=== PATIENT | male | born 1945 | race Caucasian/White ===

== ENCOUNTER 2017-03-14 08:28 | Inpatient (IN) ==
--- NOTE | 2017-03-14 08:48 | Emergency Department Note ---
Disposition Clinical Impression: NSTEMI (non-ST elevated myocardial infarction) Disposition: Admitted As Inpatient Condition: Fair General Adult HPI - General Chief complaint: ED Chest Pain Stated complaint: CHEST PAIN Time Seen by Provider: 03/14/17 08:31 Source: patient Limitations: no limitations Nursing Notes Reviewed: Yes Vital Signs Reviewed: Yes - History of Present Illness HPI Narrative: Chief complaint is chest pain. History of chief complaint 71-year-old gentleman he felt fine yesterday. About 3 to 4:00 this morning he was awakened with pain in the left side of his chest going into his left arm. He said it is resolve somewhat now but not completely. He denied any headache no neck pain or jaw pain no back pain no dyspnea with this. Said a history of cardiovascular disease was angioplasty in the past it has been quite a while and his said he has not followed up with cardiology in years. He also has a history of diabetes hypertension he is on a statin but he does not know if he has high cholesterol or not. He continues to smoke. He denied any diaphoresis or dyspnea with this episode. Nurse's notes reviewed, past medical history reviewed, medications reviewed, allergies reviewed, family social history reviewed. Pain Scale: 8 - Related Data Home Medications Medication Instructions Recorded Confirmed Carbidopa/Levodopa 1 tab PO TID 03/14/17 03/14/17 [Carbidopa-Levodopa 25-250 Tab] Fluticasone/Salmeterol [Advair 1 puff IH BID 03/14/17 03/14/17 500-50 Diskus] Glimepiride [Amaryl] 1 mg PO QAM 03/14/17 03/14/17 Lisinopril [Zestril] 40 mg PO DAILY 03/14/17 03/14/17 Metformin [Glucophage] 500 mg PO DAILY 03/14/17 03/14/17 Metoprolol Succinate 100 mg PO DAILY 03/14/17 03/14/17 Pravastatin Sodium [Pravachol] 40 mg PO DAILY 03/14/17 03/14/17 Tamsulosin [Flomax] 0.4 mg PO DAILY 03/14/17 03/14/17 Vit A/Vit C/Vit E/Zinc/Copper 2 tab PO DAILY 03/14/17 03/14/17 [Preservision Areds Tablet] Allergies Allergy/AdvReac Type Severity Reaction Status Date / Time No Known Allergies Allergy Verified 03/14/17 08:38 Review of Systems: Review of systems are positive for chest pain with left arm pain. Denies diaphoresis, nausea and vomiting, abdominal pain or dyspnea. All systems ED: reviewed and negative except as stated. Past Medical History - Past Medical History Medical history: Reports: COPD, coronary artery disease, diabetes, hyperlipidemia, hypertension, myocardial infarction Psychiatric history: Reports: no psych history - Social History Smoking Status: Current every day smoker Smokeless Tobacco Status: No Alcohol use: Reports: none Drug use: Reports: none Physical Exam Temperature is 98.7, pulse is 83 and regular, respirations 18 nonlabored, BP 149 /97, pulse ox on room air is 95%, weighs 106.5 kg, alert cooperative no acute distress. HEENT is normocephalic PERRL no scleral icterus X rectal muscles are intact, TMs and nares are negative airways midline no drooling or stridor no carotid bruits Cardiovascular regular rate and rhythm without rubs or JVD Lungs are clear to auscultation bilaterally with good aeration Abdomen soft nonsurgical good bowel sounds no masses dermatologic skin is warm and dry there is no signs or rash petechiae or jaundice. Does have changes associated with age. Extremities are present 4 with good distal pulses Refill is brisk is no pitting edema and no calf tenderness Neurologic cranial nerves are intact. He does have significant bilateral vision loss which she is known to have. But he is not certain why. He moves all extremities has good upper and lower muscle strength, no clonus, no fasciculations, no ataxia - General Limitations: no limitations General appearance: alert Course Vital Signs Temperature 98.7 F 03/14/17 08:30 Pulse Rate 83 03/14/17 08:30 Respiratory Rate 18 03/14/17 08:30 Blood Pressure 149/97 03/14/17 08:30 O2 Sat by Pulse Oximetry 95 03/14/17 08:30 Temperature 98.7 F 03/14/17 08:30 Pulse Rate 80 03/14/17 10:22 Respiratory Rate 18 03/14/17 10:39 Blood Pressure 113/82 03/14/17 10:39 O2 Sat by Pulse Oximetry 93 03/14/17 10:22 Oxygen Delivery Oxygen Delivery Room Air Medical Decision Making - MDM Narrative Medical decision making narrative: Cardiac workup is started, nitroglycerin trial, he is oriented had aspirin today. So we will not repeat that. EKG troponin chest x-ray and reassess. He will most likely need admission. He has family are in agreement with this plan. EKG performed at 0835 hours shows a sinus rhythm, rates 85, QRS is 105, QTc is 370, he does have markedly left axis deviation and ST segment depression in the in the lateral leads. Compared with an EKG that he had done in 2012 shows no acute changes except for rate 0920 hrs.: Patient one nitroglycerin brought his pain from an 8 down to 4 he states he did not want a second nitroglycerin. Hemoglobin of fluids weight on his labs to come back and then discuss admission. He is in agreement this plan. Chest X-Ray 03/14/17 08:31 IMPRESSION: 1. COPD. 2. Diffuse bilateral basilar predominant interstitial reticulonodular changes which could represent pulmonary edema versus bronchitis/bronchiolitis (possible hypersensitivity pneumonitis) versus interstitial pneumonitis. 3. No lobar pneumonia. D/ / Rohit Mitchell MD / Rohit Mitchell MD Interpreting Provider: Rohit Mitchell MD 1016 hrs.: Repeat EKG done at 1012 hrs. shows a sinus rhythm did have a PVC, has a QRS of 102 mL at 384 left axis deviation still has the same lateral changes he has had on his previous EKG as well as from 2012. His troponin is positive he denies any chest pain at this time. He said aspirin today and the nitroglycerin were bringing him into the hospital he is in agreement with this plan. 1035 hrs.: I spoke with cardiology, Dr. Sigala, he asked that we go ahead and start the patient on heparin low-dose ACS protocol is initiated. Dr. Carvajal has come down to the department to see the patient and hospital service. Patient denies any chest pain at this time. We did discuss the abnormalities on his EKG and his positive troponin. Patient's agreeing to admission to the hospital. His critical care time exclusive any separately billable procedures is 40 minutes. 1100 hrs.: Family Psychologist seen the patient in the emergency department. They have talked with Dr. Moran who is on for interventional mildew heart catheter on him today. Patient's in agreement with that plan. - Lab Data Result diagrams: 03/14/17 09:14 03/14/17 09:14 Lab Results 03/14/17 03/14/17 03/14/17 Range/Units 09:14 09:14 09:14 WBC 11.0 (4.3-11.1) K/mcL RBC 4.99 (4.19-5.50) M/mcL Hgb 16.6 (12.9-16.9) g/dL Hct 47.3 (37.5-50.1) % MCV 94.8 (83.0-100.0) fL MCH 33.3 (28.0-33.3) pg MCHC 35.1 (31.6-35.5) g/dL RDW 13.3 (11.5-14.5) % Plt Count 125 L (140-400) K/mcL MPV 11.2 (9.4-12.4) fL Immature Gran % 1.4 (0-4) % Seg Neutrophils % 69.6 % Lymphocytes % 19.7 % Monocytes % 7.3 % Eosinophils % 1.2 % Basophils % 0.8 % Neutrophils # 7.7 (1.6-8.9) K/mcL Lymphocytes # 2.2 (0.6-4.6) K/mcL Monocytes # 0.8 (0.0-1.3) K/mcL Eosinophils # 0.1 (0.0-0.6) K/mcL Basophils # 0.1 (0.0-0.2) K/mcL Sodium 136 (136-145) mEq/L Potassium 4.5 (3.5-4.5) mEq/L Chloride 106 (98-109) mEq/L Carbon Dioxide 19 (19-29) mEq/L BUN 11 (8-26) mg/dL Creatinine 0.83 (0.72-1.25) mg/dL Est GFR ( Amer) > 60 (> 60) Est GFR (Non-Af Amer) > 60 (> 60) BUN/Creatinine Ratio 13 (6-26) Glucose 167 H (70-99) mg/dL Calculated Osmolality 285 (280-300) Calcium 9.7 (8.6-10.8) mg/dL Troponin I 0.95 H* (0-0.03) ng/mL B-Natriuretic Peptide (0-100) pg/mL 03/14/17 Range/Units 09:14 WBC (4.3-11.1) K/mcL RBC (4.19-5.50) M/mcL Hgb (12.9-16.9) g/dL Hct (37.5-50.1) % MCV (83.0-100.0) fL MCH (28.0-33.3) pg MCHC (31.6-35.5) g/dL RDW (11.5-14.5) % Plt Count (140-400) K/mcL MPV (9.4-12.4) fL Immature Gran % (0-4) % Seg Neutrophils % % Lymphocytes % % Monocytes % % Eosinophils % % Basophils % % Neutrophils # (1.6-8.9) K/mcL Lymphocytes # (0.6-4.6) K/mcL Monocytes # (0.0-1.3) K/mcL Eosinophils # (0.0-0.6) K/mcL Basophils # (0.0-0.2) K/mcL Sodium (136-145) mEq/L Potassium (3.5-4.5) mEq/L Chloride (98-109) mEq/L Carbon Dioxide (19-29) mEq/L BUN (8-26) mg/dL Creatinine (0.72-1.25) mg/dL Est GFR ( Amer) (> 60) Est GFR (Non-Af Amer) (> 60) BUN/Creatinine Ratio (6-26) Glucose (70-99) mg/dL Calculated Osmolality (280-300) Calcium (8.6-10.8) mg/dL Troponin I (0-0.03) ng/mL B-Natriuretic Peptide 159 H (0-100) pg/mL
[2017-03-14] MEDS: Nitroglycerin 0.4 MG TAB.SUBL SL PRN ×2 (09:04→13:50)
[2017-03-14 09:22] LABS: Basophils # 0.1 K/mcL (0.0-0.2); Basophils % 0.8 %; Eosinophils # 0.1 K/mcL (0.0-0.6); Eosinophils % 1.2 %; Hematocrit 47.3 % (37.5-50.1); Hemoglobin 16.6 g/dL (12.9-16.9); Immature Granulocytes % 1.4 % (0-4); Lymphocytes # 2.2 K/mcL (0.6-4.6); Lymphocytes % 19.7 %; Mean Corpuscular HGB Conc 35.1 g/dL (31.6-35.5); Mean Corpuscular Hemoglobin 33.3 pg (28.0-33.3); Mean Corpuscular Volume 94.8 fL (83.0-100.0); Mean Platelet Volume 11.2 fL (9.4-12.4); Monocytes # 0.8 K/mcL (0.0-1.3); Monocytes % 7.3 %; Neutrophils # 7.7 K/mcL (1.6-8.9); Platelet Count 125 K/mcL (140-400); Red Blood Count 4.99 M/mcL (4.19-5.50); Red Cell Distribution Width 13.3 % (11.5-14.5); Segmented Neutrophils % 69.6 %
[2017-03-14 09:35] LABS: BUN/Creatinine Ratio 13 (6-26); Blood Urea Nitrogen 11 mg/dL (8-26); Calcium 9.7 mg/dL (8.6-10.8); Carbon Dioxide 19 mEq/L (19-29); Chloride 106 mEq/L (98-109); Glucose 167 mg/dL (70-99); Osmolality,Calculated 285 (280-300); Potassium 4.5 mEq/L (3.5-4.5); Sodium 136 mEq/L (136-145); eGFR For African Americans > 60 (> 60); eGFR For Non-African Americans > 60 (> 60)
[2017-03-14] MEDS ORDERED: *HR* Heparin 5,000 UNIT/ML VIAL IVP ONE (10:34)
[2017-03-14] MEDS ORDERED: Ipratropium/Albuterol Neb 3 ML IH PRN (11:24)
--- NOTE | 2017-03-14 11:28 | Internal Med History&Physical ---
Date of Encounter: 03/14/17 Time of Encounter: 11:24 Assessment and Plan (1) NSTEMI (non-ST elevated myocardial infarction) Current visit: Yes Status: Acute Patient has NSTEMI type one of coronary artery disease. He will be started on full anterior ischemic medications including aspirin, beta cecilia, full dose heparin drip. He was off chest pain now. He is having downsloping ST segment depression 2 mm. Cardiology service deciding on taking patient to the Manager [facility] today. Echocardiogram will be checked. His heart rate is 80. Continue 100 mg metoprolol, target heart rate 60. Patient is full code (2) COPD (chronic obstructive pulmonary disease) Current visit: Yes Status: Acute Patient is having cough with production, however he denies any increase in the amount of sputum or change in its color. No increased shortness of breath. I therefore hold off antibiotics Qualifiers: Qualified Code(s): J44.9 - Chronic obstructive pulmonary disease, unspecified Internal Medicine - H&P: HPI Chief complaint: chest pain History of present illness: Mr. Otto is a 71 year old male with past medical history of diabetes mellitus type II, hypertension, COPD not on home oxygen, macular degeneration, presents to the emergency room today with the main complaining of chest pain. Patient was awakened from sleep at 3 AM with retrosternal chest pain which he describes as heaviness radiating to the left arm. This was associated with profuse sweating. Patient noted that pain would improve when he sits up and worsens when he lays flat. Patient has been constant till he arrived to the emergency room proximately 9 AM. He had received 2 tablets of sublingual nitroglycerin in the emergency room with a resolution of this pain. He had dynamic EKG changes in the form of downsloping ST segment depression in lateral precordial leads and initial troponin levels was 0.95. Patient was off pain during my interview. He had a similar episode but shorter duration 1 week ago. Patient is having cough with production, however he denies any increase in the amount of sputum or change in its color. No increased shortness of breath. No fever Past Med Surg Social Fam HX - Past Medical History Medical history: COPD, coronary artery disease, diabetes, hyperlipidemia, hypertension, myocardial infarction Psychiatric history: no psych history - Social History Smoking Status: Current every day smoker Smokeless Tobacco Status: No Alcohol use: none Drug use: none Internal Medicine - H&P: Meds Carbidopa/Levodopa [Carbidopa-Levodopa 25-250 Tab] 1 tab PO TID 03/14/17 [ History] Fluticasone/Salmeterol [Advair 500-50 Diskus] 1 puff IH BID 03/14/17 [History] Glimepiride [Amaryl] 1 mg PO QAM 03/14/17 [History] Lisinopril [Zestril] 40 mg PO DAILY 03/14/17 [History] Metformin [Glucophage] 500 mg PO DAILY 03/14/17 [History] Metoprolol Succinate 100 mg PO DAILY 03/14/17 [History] Pravastatin Sodium [Pravachol] 40 mg PO DAILY 03/14/17 [History] Tamsulosin [Flomax] 0.4 mg PO DAILY 03/14/17 [History] Vit A/Vit C/Vit E/Zinc/Copper [Preservision Areds Tablet] 2 tab PO DAILY [History] Allergies No Known Allergies Allergy (Verified 03/14/17 08:38) All Systems PM: A 10-system review of systems was performed and is negative for pertinent findings except as documented above in the HPI. Review of systems: 10 point ROS is negative except for HPI - Constitutional Vitals: Temp Pulse Resp BP Pulse Ox 98.7 F 80 18 113/82 93 03/14/17 08:30 03/14/17 10:22 03/14/17 10:39 03/14/17 10:39 03/14/17 10:22 Exam: Gen.: patient is alert and oriented times 3 knocks in distress. Cardiac: normal S1 S2 no additional sounds remembers. Chest: diminished infantry scattered expiratory wheeze. Abdomen: soft nontender nondistended lower extremity: No swelling Neuro: No focal deficits Internal Med - H&P Results - Labs CBC & Chem 7: 03/14/17 09:14 03/14/17 09:14
--- NOTE | 2017-03-14 11:33 | Cardiology Consult Note ---
Date of Encounter: 03/14/17 Time of Encounter: 11:29 Assessment and Plan Discussion w patient/family: NSTEMI - With mild ongoing sxs. Dw Interventional CArdiology Risks benefits rationale and alternatives to Angio were discussed - Patient is agreeable. Keep NPO now. Usual AR type care. Cath later today - Dr. Moran - further work up based on results of cath. The assessment and plan as outlined above was discussed with the patient and/or family members who expressed understanding and agreement. All questions were answered. Thank you for involving us in the care of your patient. Please call with any questions. History of Present Illness Consult date: 03/14/17 Consult reason: NSTEMI Chief complaint: chest pain History of present illness: Mr. Otto is a 71 year old male with known CAD, details unknown, lost to CV follow up for several years, presents with acute onset chest pain starting early this morning. Reports that this started ~ 3 AM, feels similar to his previous anginal chest pain, and persisted until he came to the ER. After arrival, NTG finally improved the pain, however it is still there - slightly. Denies any other sxs. Denies any other episodes of chest pain. Work up in the ER is notable for an Abnormal EKG with ST depression in the lateral leads - unchanged after pain was markedly improved. Similar but worse than previous EKGs. Trop was also elevated at 0.95 Past Med Surg Social Fam HX - Past Medical History Medical history: COPD, coronary artery disease, diabetes, hyperlipidemia, hypertension, myocardial infarction Psychiatric history: no psych history - Social History Smoking Status: Current every day smoker Smokeless Tobacco Status: No Alcohol use: none Drug use: none Medications and Allergies Carbidopa/Levodopa [Carbidopa-Levodopa 25-250 Tab] 1 tab PO TID 03/14/17 [ History] Fluticasone/Salmeterol [Advair 500-50 Diskus] 1 puff IH BID 03/14/17 [History] Glimepiride [Amaryl] 1 mg PO QAM 03/14/17 [History] Lisinopril [Zestril] 40 mg PO DAILY 03/14/17 [History] Metformin [Glucophage] 500 mg PO DAILY 03/14/17 [History] Metoprolol Succinate 100 mg PO DAILY 03/14/17 [History] Pravastatin Sodium [Pravachol] 40 mg PO DAILY 03/14/17 [History] Tamsulosin [Flomax] 0.4 mg PO DAILY 03/14/17 [History] Vit A/Vit C/Vit E/Zinc/Copper [Preservision Areds Tablet] 2 tab PO DAILY [History] Allergies No Known Allergies Allergy (Verified 03/14/17 08:38) All Systems Review: A 10-system review of systems was performed and is negative for pertinent findings except as documented above in the HPI. - Cardiovascular Cardiovascular: chest pain at rest, chest pain with exertion, dyspnea at rest Physical Examination Vital Signs, Last 4 Hours Resp BP 03/14/17 10:39 18 113/82 General: Conversant, No Apparent Distress HEENT: Atraumatic, Mucus Membranes Moist Neck: No JVD, Normal carotid pulses Cardiac: Reg Rate and Rhythm, Normal S1 and S2 Lungs: Normal Breath Sounds, Other (fair air movement) Neuro: Alert and responsive, No focal deficits noted Abdomen: Soft, Non-Tender Skin: No rashes noted on visualized skin Musculoskeletal: No Chest Wall Tenderness Extremities: No Clubbing, No Edema Results 03/14/17 09:14 03/14/17 09:14 Trop 0.95 BNP < 200 - Imaging and Cardiology Chest Xray: report reviewed (COPD) - EKG Interpretation EKG results cardiology: personally reviewed, sinus rhythm, other (LAteral ST depression) Consult Discharge Plan - Plan Referrals: Chidi Gray MD [Primary Care Provider] -
[2017-03-14] MEDS ORDERED: *HR* Midazolam HCl 2 MG/2 ML VIAL ONE (11:42)
[2017-03-14] MEDS ORDERED: Nitroglycerin 1,000 MCG/10 ML VIAL IV ONE (11:43)
[2017-03-14] MEDS ORDERED: 0.9 % Sodium Chloride 1,000 ML ONE (11:43)
[2017-03-14] MEDS ORDERED: *HR* Heparin 10,000 UNIT/10 ML VIAL ONE (11:43)
[2017-03-14] MEDS ORDERED: *HR* FentaNYL (PF) 100 MCG/2 ML VIAL ONE (11:43)
[2017-03-14] MEDS ORDERED: Verapamil 5 MG/2 ML VIAL ONE (11:43)
[2017-03-14] MEDS ORDERED: Heparin 1,000 UNITS/500 mL NS 500 ML ONE (11:43)
[2017-03-14 11:48] LABS: Prothrombin Time 10.7 Seconds (9.4-12.1)
[2017-03-14 11:51] LABS: Activated Partial Thrombo Time 26.6 Seconds (26.0-36.0)
--- NOTE | 2017-03-14 12:18 | Pre-Sedation Evaluation ---
Pre-sedation evaluation - Pre-sedation checklist Date of procedure: 03/14/17 Procedure: [facility] Recent Vitals: Last Vital Signs Temp 98.7 F 03/14/17 08:30 Pulse 80 03/14/17 10:22 Resp 18 03/14/17 10:39 BP 113/82 03/14/17 10:39 Pulse Ox 93 03/14/17 10:22 H&P (including ROS) documented in medical record: Yes Previous reaction to sedatives/anesthetics: No Dietary Status: No solid food in preceding 4 hrs and no liquid in preceding 2 hrs Airway Assessment: Patient can open mouth completely, TMJ function normal Dentition: No loose teeth or bridges Possible difficult airway: Yes If Yes;: Enlarged neck circumference, short neck ASA Classification *see protocol: CLASS II-Mild systemic disease, E-EMERGENCY- Add to any of the above to indicate emergent Plan of Care: Pt appropriate candidate for procedure/moderate/conscious sedation , Risks/benefits of procedure/sedation discussed w/ patient/family, If not NPO; Risk of intake outweiged by necessity to perform procedure
--- NOTE | 2017-03-14 12:58 | Invasive Diagnostic Lab Proc ---
Name: Jose R Otto Date of Study: 03/14/2017 Date: 1945 Ht: 72.0in Medical Record#: [id number] Age: 71 Wt: 284.62lb Gender: Male BSA: 2.48 Order #: [id number] BMI: 38.59 Physicians Procedure Physician: Rick Moran MD, [facility] Referring MD: Referring MD: Staff Name Position Time In Naila Malone RT (R) Monitor 12:13 PM Elier Melgozai RT Scrub 12:13 PM Hemalatha Avila RN Paste Thinner 12:13 PM Indications Indication Non-Stemi Procedures Performed Procedure L HRT ARTERY/VENTRICLE ANGIO Pre-Procedure Checklist Informed consent is complete signed and on chart. H\\T\\P is on chart. ID band is on and ID verified with patient. Patient NPO for procedure The procedure was described for the patient and questions were answered. Blood Pressure: 124/87 ECG is on chart. Rhythm: NSR Plan of Care Patient will tolerate the procedure without complications. Adequate level of comfort will be maintained. Hemodynamics will remain stable Patient will recover from procedure without complications. Respiratory function will be maintained. Cardiac rhythm will remain stable. Patient temperature will be maintained. Patient and/or family have verbalized understanding of the procedure. Patient Education Chief Complaint/Reason for Test: Cardiac Cath Developmental Category: Geriatric (65+ years) Developmentally Appropriate for Age: Yes Learning Barriers: None Education Needs: Procedure Education Method: Verbal Information Taught: Cardiac Cath Educational Evaluation: Able to repeat information Intravenous Access Time IV Size Location DC'd Fluid/Drip Rate Units RN 12:15 PM Started with 20g 1 1/4" Rt Hand 0.9NaCl 25 ml/hr Allergies NO HOME MEDICATIONS No Known Allergies / Vital Signs Time BP (mmHg) HR (bpm) O2 Sat. RR (bpm) LOC 124 / 87 78 94 % 16 5 = Fully awake and oriented or at pre-proc level 12:15 PM / % 4 = Oriented but drowsy 12:15 PM / % 4 = Oriented but drowsy 12:10 PM 142 / 86 77 97 % 11 12:15 PM 124 / 87 75 97 % 17 12:19 PM 125 / 83 77 92 % 19 12:24 PM 128 / 80 78 95 % 18 12:29 PM 111 / 75 85 94 % 19 12:34 PM 120 / 75 84 92 % 17 12:39 PM 119 / 75 81 % 12 12:44 PM 126 / 82 74 88 % 14 Procedural Medications Time Medication Dose Units Method Given By 12:14 PM Oxygen 2 L/min nasal cannula Hemalatha Avila RN 12:14 PM Versed 2 mg Intravenous Hemalatha Avila RN 12:14 PM Fentanyl 50 mcg Intravenous Hemalatha Avila RN 12:23 PM Lidocaine 2% 0.5 ml Subcutaneous Rick Moran MD, FACC 12:25 PM Heparin 4000 units Nitroglycerin 200 mcg Verapamil 2.5 mg Intraarterial Rick Moran MD, FAC ASA Classification: CLASS II- Mild systemic disease (i.e. well-controlled diabetes, hypertension, asthma, cigarette smoking) Salas Score Preprocedure Postprocedure Activity 2- Moves 4 extremities sustained head lift Activity 2- Moves 4 extremities sustained head lift Circulation 2- SBP +/= 20 points of pre-anesthetic level Circulation 2- SBP +/= 20 points of pre-anesthetic level Consciousness 2- Awake and alert oriented x 3 Consciousness 2- Awake and alert oriented x 3 O2 Saturation 2- Able to maintain O2 satruation of 92% on room air O2 Saturation 2- Able to maintain O2 satruation of 92% on room air Respiratory 2- Able to deep breathe and cough well Respiratory 2- Able to deep breathe and cough well Total Score 10 Total Score 10 Contrast Agent: Isovue Diagnostic Contrast: 57 ml Total Contrast: 57 ml Fluoro Dose: 254 mGy Procedure Log Time Note Enter By 12:09 PM Vitals capture started with the following parameters, Patient=Adult, Interval=5 min, Initial Xkxvzmke=655 mmHg, Deflation Rate=5 mmHg, Cuff placed on Left Arm 12:10 PM HR=77 bpm, UBGT=257/86 mmhg, SpO2=97.0 %, Resp=11 B/min 12:13 PM CathStat 12:13 PM Case Start 12:13 PM Recorded ECG: HR=91 Condition=Condition 1 12:13 PM Pt arrived to labor standards director 2 at 12:13 [email or web address] 12:13 PM Naila Malone RT (R) Position: Monitor Time in: 12:13 [email or web address] 12:13 PM Hiwot Melgoza RT Position: Scrub Time in: 12:13 [email or web address] 12:14 PM Hemalatha Avila RN Position: Paste Thinner Time in: 12:13 [email or web address] 12:14 PM Patient charges- Angio tray pack, Navilyst 3mm J, Pulse Oximetry and ACIST tubing and transducer [email or web address] 12:14 PM Case Delayed No [email or web address] 12:14 PM Hair removed from procedure site in holding area using clippers. Right wrist prepped with Chloraprep by Naila Malone RT (R), safety strap applied then patient was draped. Skin intact. [email or web address] 12:14 PM Hair removed from procedure site in holding area using clippers. Right groin prepped with Chloraprep by Naila Malone RT (R), safety strap applied then patient was draped. Skin intact. [email or web address] 12:14 PM Physician arrived 12:14 [email or web address] 12:14 PM ASA Class CLASS II- Mild systemic disease (i.e. well-controlled diabetes, hypertension, asthma, cigarette smoking) [email or web address] 12:14 PM Meet and greet completed [email or web address] 12:14 PM Sign in performed according to hospital policy. [email or web address] 12:14 PM Procedure start 12:14 [email or web address] 12:14 PM Time: 12:14 Oxygen on at 2 L/min per nasal cannula by Hemalatha Avila RN [email or web address] 12:14 PM Time: 12:14 Versed 2 mg Intravenous Given by Hemalatha Avila RN [email or web address] 12:14 PM Time: 12:14 Fentanyl 50 mcg Intravenous Given by Hemalatha Avila RN [email or web address] 12:15 PM HR=75 bpm, QQOW=407/87 mmhg, SpO2=97.0 %, Resp=17 B/min 12:15 PM Time: 12:15 Patient comfortable and pain free: Yes [email or web address] 12:15 PM Time: 12:15LOC: 4 = Oriented but drowsy [email or web address] 12:17 PM Pressure channel 1 zeroed. 12:19 PM HR=77 bpm, XGOI=627/83 mmhg, SpO2=92.0 %, Resp=19 B/min, Comment=NSR 12:23 PM Time out performed according to hospital policy [email or web address] 12:23 PM Time: 12:23 0.5 ml Lidocaine 2% to right radial Subcutaneous Given by Rick Moran MD, [facility] [email or web address] 12:24 PM Access obtained by percutaneous puncture. 6Fr 10cm Terumo Glidesheath sheath placed in right Radial artery. [id number] [email or web address] 12:24 PM HR=78 bpm, JJFE=347/80 mmhg, SpO2=95.0 %, Resp=18 B/min, Comment=NSR 12:25 PM Time: 12:25 Patient given 4,000 units Heparin, 200 mcg Nitroglycerin, and 2.5 mg Verapamil Intraarterial by Rick Moran MD, [facility] [email or web address] 12:25 PM 0.035 260cm Navilyst 3mmJ wire [id number] [email or web address] 12:26 PM 5Fr FR 4 catheter inserted over the wire DN [email or web address] 12:26 PM Catheter removed [email or web address] 12:26 PM 0.035 145cm VSI Newton-Torque wire [id number] [email or web address] 12:27 PM Wire removed [email or web address] 12:28 PM RCA angiography performed in multiple views. [email or web address] 12:28 PM Recorded Pressure: Ao, HR=84, Condition=Condition 1 (Aorta) Ao 92/73/83 12:29 PM HR=85 bpm, LWBR=731/75 mmhg, SpO2=94 %, Resp=19 B/min, Comment=NSR 12:30 PM Coronary Dominance: right [email or web address] 12:30 PM Time: 12:15LOC: 4 = Oriented but drowsy [email or web address] 12:30 PM Time: 12:15 Patient comfortable and pain free: Yes [email or web address] 12:30 PM Catheter removed [email or web address] 12:30 PM 5Fr FL 4 catheter inserted over the wire DN [email or web address] 12:31 PM Lesion found in Mid RCA. Pre Stenosis: 60 Pre STEFF Flow: 3: Complete and Brisk Flow/Perfusion [email or web address] 12:31 PM LCA angiography performed in multiple views. [email or web address] 12:31 PM Recorded Pressure: Ao, HR=84, Condition=Condition 1 (Aorta) Ao 94/71/83 12:31 PM Lesion found in Proximal LAD. Pre Stenosis: 99 Pre STEFF Flow: [email or web address] 12:32 PM Lesion found in Mid Circumflex. Pre Stenosis: 100 Pre STEFF Flow: [email or web address] 12:32 PM Recorded Pressure: Ao, HR=84, Condition=Condition 1 (Aorta) Ao 94/70/82 12:32 PM Catheter removed [email or web address] 12:33 PM 5Fr Pigtail catheter inserted over the wire DNC [email or web address] 12:33 PM Catheter selectively placed in left ventricle [email or web address] 12:33 PM Pressure channel 1 zero failed. 12:34 PM Pressure channel 1 zero failed. 12:34 PM Pressure channel 1 zeroed. 12:34 PM Recorded Pressure: LV, HR=85, Condition=Condition 1 (Left Ventricle) LV 123/8/13 12:34 PM HR=84 bpm, OOUU=490/75 mmhg, SpO2=92 %, Resp=17 B/min 12:34 PM Bolus angiogram of left Ventricle complete: 10 ml/sec for a total of 30 mls [email or web address] 12:35 PM Recorded Pressure: LV, Ao, HR=85, Condition=Condition 1 (Left Ventricle) LV 125/3/12, (Aorta) Ao 122/68/93 12:37 PM Catheter removed [email or web address] 12:39 PM Procedure completed at 12:39 [email or web address] 12:39 PM HR=81 bpm, PDVU=149/75 mmhg, Resp=12 B/min, Comment=NSR 12:40 PM Sign out completed: Radiation Dose 253.58 mGy Fluoro Time: 1.3 Isovue 370 - 200ml contrast 57 ml given by Rick Moran MD, [facility]. Complications: NoneCardiac Rehab Consult needed: NoConfirmed administered medications: Yes [email or web address] 12:40 PM Paged cardiothoracic surgeon. [email or web address] 12:41 PM Isovue 370 - 200ml,1 Bottle(s) used. [email or web address] 12:41 PM 10 ml air in Vasc Band. [email or web address] 12:41 PM Post ECG NSR [email or web address] 12:41 PM Post Blood Pressure 119/75 [email or web address] 12:43 PM 12:43 Post Pulses Rt Radial 2+ [email or web address] 12:43 PM Information taught Cardiac Cath and Vasc Band [email or web address] 12:43 PM Education needs Procedure, Plan of Care, and Disease Process [email or web address] 12:43 PM Learning barriers :None [email or web address] 12:43 PM Education Methods Verbal [email or web address] 12:43 PM Education evaluation Able to repeat information [email or web address] 12:43 PM Site status No bleeding/hematoma - Rt Wrist as reported by Hiwot Melgoza RT at 12:43 [email or web address] 12:43 PM Delay to floor No [email or web address] 12:43 PM Family placed in consult room. [email or web address] 12:43 PM Complications: None [email or web address] 12:44 PM Fluoro Time: 1.3 [email or web address] 12:44 PM Isovue 370 - 200ml contrast 57 ml given by Rick Moran MD, [facility]. [email or web address] 12:44 PM Radiation Dose 253.58 mGy [email or web address] 12:44 PM HR=74 bpm, KLCM=592/82 mmhg, SpO2=88.0 %, Resp=14 B/min, Comment=NSR 12:45 PM Time: 12:30 Patient comfortable and pain free: Yes [email or web address] 12:52 PM Report given to Rhys BOYER Pt taken to 2A Room #43. 12:51 [email or web address] 12:52 PM Patient out of room: 12:52 [email or web address] Complications Complication None None Hemodynamics Pressures Site Systolic/A Wave Diastolic/V Wave Mean AO 92 73 83 AO 94 71 83 AO 94 70 82 LV 123 8 13 LV 125 3 12 AO 122 68 93 Post Procedure Information Blood Pressure: 119/75 mmHg Rhythm: NSR Post procedural instructions were not given Surgery consult for CABG Closure Device Time Device Success/Fail 03/14/2017 12:40:00 PM Mechanical Compression yes Site Checks Time Location Status Staff Sheath In? Note 12:43 PM Rt Wrist No bleeding/hematoma Hiwot Melgoza RT Pulses Time Site Pre-Procedure Post-Procedure Note 03/14/2017 12:16:00 PM Bilateral radial 2+ 03/14/2017 12:16:00 PM Bilateral DP \\T\\ PT 1+ 12:43:00 PM Rt Radial 2+ Updated by Naila Malone, RT(R) on 03/14/2017 12:53:07 PM electronically signed on 03/14/2017 12:53:53 PM with status of Final
[2017-03-14] MEDS: Heparin 25,000 UNIT/500 ML D5W 25,000 UNIT/500 ML MLS IVC SCH (13:52)
[2017-03-14] MEDS: Insulin LISPRO 300 UNITS/3 ML VIAL SQ SCH ×3 (13:55→22:57)
--- NOTE | 2017-03-14 14:11 | Invasive Diagnostic Lab ---
Name: Jose R Otto Date of Study: 03/14/2017 Date: 1945 Ht: 183.0 cm /72.0 in Medical Record#: [id number] Age: 71 Wt: 106.5 kg / 234.79 lb Account/Order#: [id number] Gender: Male BSA: 2.28 Order #: [id number] Fluoro Dose: 254 mGy BMI: 31.8 Procedure Physician: Rick Moran MD, FACC Referring MD: Referring MD: Procedures Performed: LEFT HEART CATH Indications: Non-Stemi Impressions: There is severe multivessel coronary artery disease. The left ventricle has moderately Abnormal contractility EF 35% There is good quality collateral vessel/vessels from the Right PDA to the Distal Circumflex that are visualized. Recommendations: Optimal medical therapy of patient's disease. Aggressive risk factor modification. Suggest patient have Elective coronary artery bypass surgery versus high risk complex PCI History/Risk Factors: CP COPD HTN Diabetes Hypertension Procedure Access obtained in the right Radial artery by percutaneous puncture Complications: None, None Contrast: Isovue 57ml Closure Device: Mechanical Compression Hemodynamics: Pressures Site Systolic/ A Wave Diastolic/ V Wave End Diastolic/ Mean HR AO 92 73 83 84 AO 94 71 83 84 AO 94 70 82 84 LV 123 8 13 85 LV 125 3 12 87 AO 122 68 93 82 LV Ventriculography Ejection Method: LV Gram Ejection Fraction: 35% Wall Motion: NASCIMENTO Anterobasal Mild Hypokinesis Anterolateral Severe Hypokinesis Apical: Mild Hypokinesis Inferoapical Mild Hypokinesis Inferobasal Normal Coronary Dominance: right Lesion Findings/Interventions * Left Main Coronary Artery The LMCA is angiographically free of disease. * Left Anterior Descending There is a 99% stenosis in the Proximal LAD that appears to have thrombus and is calcified. There is a mid LAD lesion 70% that is also calcified with thrombus. STEFF 2 flow. * Circumflex There is a 100% stenosis in the Mid Circumflex which has collaterals from RPDA filling it. * Right Coronary Artery There is a 60-70% stenosis in the Mid RCA. The lesion has a STEFF flow of 3. Updated by RT Carlitos(R) on 03/14/2017 12:47:13 PM Rick Moran MD, FACC electronically signed on 03/14/2017 2:06:19 PM with status of Final
[2017-03-14] MEDS ORDERED: Nitroglycerin 25 MG/250 ML INFUS..BTL IVC SCH (15:30)
[2017-03-14] MEDS: Carbidopa/Levodopa 25/250 TABLET PO SCH ×2 (16:41→20:55)
--- NOTE | 2017-03-14 18:54 | ECHO - Doppler Report ---
Echocardiogram Name: Jose R Otto Date of Study: 03/14/2017 Date: 1945 Ht: 72.0 in Medical Record#: [id number] Age: 71 Wt: 235.0 lb Gender: Male BSA: 2.28 Order #: [id number] Location: [facility] Room #: 2A43 Reading Physician: Rick Moran MD, [facility] Taxi Truck Driver: Gali Lopez RVT Ordering Physician: Nikolay Carvajal MD Primary Physician: Chidi Gray MD Indications: NSTEMI Impressions: LVEF 35-40%. Moderate global and segmental left ventricular systolic dysfunction. Mild left ventricular diastolic dysfunction. No significant valvular dysfunction. Left Ventricular Wall Motion: Rest Echo Findings The apex, apical inferior, mid inferior, basal inferior, apical anterior, mid anterior, basal anterior, apical septal, mid inferior septal, basal inferior septal, apical lateral, mid anterior lateral, basal anterior lateral, mid anterior septal, mid inferior lateral, basal anterior septal and basal inferior lateral pereira were hypokinetic. Findings: Study Quality * Technically adequate exam. Right Ventricle * Normal right ventricular structure and function. Right Atrium * Normal right atrial size. Mitral Valve * Normal mitral valve structure and function. Interatrial Septum * No evidence of PFO by color Doppler. Aorta * Normally sized aortic root. Pericardium * The pericardium appears normal. Left Ventricle * LVEF 35-40%. * Moderate global and segmental left ventricular systolic dysfunction. * Mild left ventricular diastolic dysfunction. Left Atrium * Mildly dilated left atrium. Aortic Valve * Aortic valve not well visualized. * No aortic stenosis. * No aortic regurgitation. IVC * The IVC is not well evaluated. Tricuspid Valve * No tricuspid stenosis. * Trace tricuspid regurgitation. * Unable to estimate RVSP due to lack of TR jet. History Hypertension Diabetes Hypercholesteremia History of CAD/PTCA Myocardial Infarction Measurements: BP: 113/ 82 2D Normal Values RVIDd: 3.01 cm <2.7 cm IVSd: 1.02 cm 0.6 - 1.0 cm LVIDd: 5.92 cm 3.7 - 5.6 cm LVPWd: 1.17 cm 0.6 - 1.1 cm LVIDs: 4.79 cm 1.5 - 3.6 cm AO: 3.30 cm < 4.0 cm LA: 4.70 cm 2.0 - 4.0cm %FS: 19.10 cm >25 % LA volume: 79 Mitral Valve Peak E:.86 m/sec Peak A:.89 m/sec E/A Ratio:1 Peak E' Lat Gordy:8.08 cm/s Peak E' Med Gordy:4.1 cm/s E/E' Lat Ratio:10.6 E/E' Med Ratio:21 Tricuspid Valve TV Regurg Peak Grad: 3.00mmHg TV Regurg Peak Gordy: .80m/sec Updated by Rick Moran MD, [facility] on 03/14/2017 6:48:22 PM electronically signed on 03/14/2017 6:49:33 PM with status of Final Wall Motion Olguin: 1=Normal, 2=Hypokinesis, 3=Akinesis, 4=Dyskinesis, 5=Aneurysmal, 6=Hyperkinetic, X=Not Visualized (Blank)=Missing
[2017-03-14] MEDS ORDERED: *HR* Morphine 2 MG/ML SYRINGE IV PRN ×2 (20:39)
--- NOTE | 2017-03-14 21:00 | Event Note ---
Date of Encounter: 03/14/17 Time of Encounter: 20:57 - Cardiology Event Note Patient had recurrent chest pain tonight. Nitro gtt in place and titrated up. when I arrived at bedside - he was resting comfortably - no more chest pain. Options d/w Interventional Cardiology. (He and I agree - no need for IABP at this time) Recs Await CT surgery Heparin gtt Nitro Gtt - titrate up as needed for pain control. Morphine PRN
[2017-03-14] MEDS ORDERED: Budesonide/Formoterol 160/4.5 MDI IH SCH (22:00)
[2017-03-14] MEDS ORDERED: Melatonin 3 MG TABLET PO PRN (22:38)
[2017-03-14] MEDS ORDERED: *HR* Heparin 5,000 UNIT/ML VIAL IVP PRN (23:06)
[2017-03-14] MEDS: *HR* Heparin 5,000 UNIT/ML VIAL IVP PRN (23:42)
[2017-03-15 06:40] LABS: Basophils # 0.1 K/mcL (0.0-0.2); Basophils % 0.8 %; Eosinophils # 0.2 K/mcL (0.0-0.6); Eosinophils % 1.6 %; Hematocrit 41.6 % (37.5-50.1); Immature Granulocytes % 0.8 % (0-4); Lymphocytes # 3.2 K/mcL (0.6-4.6); Lymphocytes % 32.5 %; Mean Corpuscular HGB Conc 33.4 g/dL (31.6-35.5); Mean Corpuscular Hemoglobin 31.7 pg (28.0-33.3); Mean Corpuscular Volume 94.8 fL (83.0-100.0); Mean Platelet Volume 10.7 fL (9.4-12.4); Monocytes # 0.8 K/mcL (0.0-1.3); Monocytes % 7.8 %; Neutrophils # 5.6 K/mcL (1.6-8.9); Platelet Count 118 K/mcL (140-400); Red Blood Count 4.39 M/mcL (4.19-5.50); Red Cell Distribution Width 13.4 % (11.5-14.5); Segmented Neutrophils % 56.5 %
[2017-03-15 06:46] LABS: Hemoglobin 13.9 g/dL (12.9-16.9)
[2017-03-15 06:50] LABS: BUN/Creatinine Ratio 16 (6-26); Blood Urea Nitrogen 14 mg/dL (8-26); Calcium 9.4 mg/dL (8.6-10.8); Carbon Dioxide 18 mEq/L (19-29); Chloride 105 mEq/L (98-109); Glucose 123 mg/dL (70-99); Osmolality,Calculated 284 (280-300); Potassium 3.9 mEq/L (3.5-4.5); Sodium 136 mEq/L (136-145); eGFR For African Americans > 60 (> 60); eGFR For Non-African Americans > 60 (> 60)
[2017-03-15] MEDS: *HR* Heparin 5,000 UNIT/ML VIAL IVP PRN (06:53)
[2017-03-15] MEDS: Insulin LISPRO 300 UNITS/3 ML VIAL SQ SCH ×3 (07:47→16:47)
[2017-03-15] MEDS ORDERED: Aspirin Enteric Coated 325 MG Tablet PO SCH (09:00)
[2017-03-15] MEDS ORDERED: Metoprolol XL (24 HR) Succ 50 MG TAB.ER.24H PO SCH (09:00)
[2017-03-15] MEDS: Carbidopa/Levodopa 25/250 TABLET PO SCH ×2 (09:11→15:45)
--- NOTE | 2017-03-15 09:31 | Cardiology Progress Note ---
Date of Encounter: 03/15/17 Time of Encounter: 09:28 Assessment and Plan (1) CAD (coronary artery disease), [place] coronary artery Current Visit: Yes Status: Acute Qualifiers: Qualified Code(s): I25.10 - Atherosclerotic heart disease of [place] coronary artery without angina pectoris (2) NSTEMI (non-ST elevated myocardial infarction) Current Visit: Yes Status: Acute Await CT surgery (3) COPD (chronic obstructive pulmonary disease) Current Visit: Yes Status: Acute Per IM Qualifiers: Qualified Code(s): J44.9 - Chronic obstructive pulmonary disease, unspecified Discussion w patient/family: NSTEMI - With mild ongoing sxs. Await CT sugery Ongoing pain control Optimize meds Add Lisinopril 5 daily for CHF. Continue BB, Statin, etc The assessment and plan as outlined above was discussed with the patient and/or family members who expressed understanding and agreement. All questions were answered. Thank you for involving us in the care of your patient. Please call with any questions. Subjective Principal diagnosis: CAD Interval history: Since last night he patient reports occasional chest pain - better with Nitro and Morphine He is agerly waiting for CT surgery Objective Vital Signs, Last 4 Hours Temp Pulse Resp BP Pulse Ox 03/15/17 09:08 93 138/82 03/15/17 08:56 95 155/110 03/15/17 08:50 93 147/108 03/15/17 07:44 78 136/87 03/15/17 06:58 97.5 F L 77 18 146/87 95 General: Conversant, No Apparent Distress HEENT: Atraumatic, Normocephaly Neck: No JVD, Normal carotid pulses Cardiac: Reg Rate and Rhythm, Normal S1 and S2 Lungs: Normal Breath Sounds, No Wheeze, Rales, Rhonchi Neuro: Alert and responsive, No focal deficits noted Abdomen: Soft, Non-Tender Skin: No rashes noted on visualized skin Musculoskeletal: No Chest Wall Tenderness Extremities: No Clubbing, No Cyanosis Results 03/15/17 06:15 03/15/17 06:15 Lab Results 03/14/17 03/14/17 03/14/17 14:27 21:43 21:43 WBC Hgb Hct Plt Count APTT 43.1 H D Sodium Potassium Chloride Carbon Dioxide BUN Creatinine Glucose Calcium Magnesium Troponin I 1.00 H* 0.86 H* 03/15/17 03/15/17 03/15/17 06:15 06:15 06:15 WBC 9.9 Hgb 13.9 D Hct 41.6 Plt Count 118 L APTT 51.2 H Sodium 136 Potassium 3.9 Chloride 105 Carbon Dioxide 18 L BUN 14 Creatinine 0.85 Glucose 123 H Calcium 9.4 Magnesium 2.0 Troponin I - Imaging and Cardiology Cardiac cath: report reviewed - EKG Interpretation EKG results cardiology: personally reviewed (Lateral ST changes) Consult Discharge Plan - Plan Referrals: Chidi Gray MD [Primary Care Provider] -
--- NOTE | 2017-03-15 09:47 | Internal Med Progress Note ---
Date of Encounter: 03/15/17 Time of Encounter: 09:44 - Assessment and plan (1) Essential hypertension Current Visit: Yes Status: Acute (2) Hyperlipidemia Current Visit: Yes Status: Acute (3) NSTEMI (non-ST elevated myocardial infarction) Current Visit: Yes Status: Acute (4) COPD (chronic obstructive pulmonary disease) Current Visit: Yes Status: Acute Qualifiers: Qualified Code(s): J44.9 - Chronic obstructive pulmonary disease, unspecified (5) CAD (coronary artery disease), [place] coronary artery Current Visit: Yes Status: Acute Qualifiers: Qualified Code(s): I25.10 - Atherosclerotic heart disease of [place] coronary artery without angina pectoris - Subjective Interval history: Ongoing chest pain, intermittent; patient reports anxiety about possible CABG; has not been following up with Cardiology as outpatient; also has some nausea, shortness of breath and generalized weakness; - Constitutional Vitals: Temp Pulse Resp BP Pulse Ox 97.5 F L 93 18 138/82 95 03/15/17 06:58 03/15/17 09:08 03/15/17 06:58 03/15/17 09:08 03/15/17 06:58 General appearance: Present: mild distress, A&O X 3, answers questions appropriately - Respiratory Respiratory exam: Present: CTAB. Absent: accessory muscle use, rales, rhonchi, wheezes - Cardiovascular Cardiovascular exam: Present: RRR, +S1, +S2. Absent: diastolic murmur, gallop, rubs, systolic murmur - GI/Abdominal GI/Abdominal exam: Present: normal bowel sounds, soft (obese), no peritoneal signs. Absent: distended, tenderness - Extremities Exam Extremities exam: Present: full ROM, warm, radial pulses palpable and symetrical. Absent: calf tenderness, cyanotic, pedal edema Additional comments: B/L upper extremity tremors Internal Medicine: Result - Labs CBC & Chem 7: 03/15/17 06:15 03/15/17 06:15 Labs: Short CBC 03/15/17 Range/Units 06:15 WBC 9.9 (4.3-11.1) K/mcL Hgb 13.9 D (12.9-16.9) g/dL Hct 41.6 (37.5-50.1) % Plt Count 118 L (140-400) K/mcL Neutrophils # 5.6 (1.6-8.9) K/mcL BMP 03/15/17 06:15 Sodium 136 Potassium 3.9 Chloride 105 Carbon Dioxide 18 L BUN 14 Creatinine 0.85 Glucose 123 H Calcium 9.4 Cardiac Enzymes 03/14/17 03/14/17 Range/Units 14:27 21:43 Troponin I 1.00 H* 0.86 H* (0-0.03) ng/mL - ABG Interpretation ABG results: PT/INR, D-dimer PT 10.7 Seconds (9.4-12.1) 03/14/17 09:14 Consult Discharge Plan - Plan Referrals: Chidi Gray MD [Primary Care Provider] - (web request sent on 03/15/17)
--- NOTE | 2017-03-15 10:18 | Cardiothoracic Consult Note ---
Date of Encounter: 03/15/17 Time of Encounter: 10:13 Assessment and Plan (1) CAD (coronary artery disease), [place] coronary artery Current Visit: Yes Status: Acute The patient is a 71-year-old type II diabetic, hypertensive man with hypercholesterolemia, known CAD, and known PAD. The patient was evaluated at [facility] after experiencing acute onset of substernal chest pain radiating to his left arm and shortness of breath. The patient had elevated troponin I levels and ECG changes consistent with an acute NSTEMI. Cardiac catheterization yesterday revealed severe 3 vessel CAD and an LVEF 35%. The patient has been recommended for possible high risk CABG versus complex, high risk PCI. The STS risk calculator shows an operative mortality of 5%, permanent stroke 2%, prolonged ventilation 25%, deep sternal wound infection 1.5 %, renal failure 6%, and reoperation 8%. Given the patient's multiple medical risk factors, his severe COPD, and his limited ambulation/mobility due to his macular degeneration and Parkinson's disease, I believe this patient would be better served with the PCI and stent placement. This would be less invasive and his recovery would be easier. I will discuss this with Dr. Moran. The assessment and plan as outlined above was discussed with the patient and/or family members who expressed understanding and agreement. All questions were answered. Qualifiers: [place] vs. transplanted heart: [place] heart Associated angina: with unstable angina Qualified Code(s): I25.110 - Atherosclerotic heart disease of [place] coronary artery with unstable angina pectoris - History of Present Illness Consult date: 03/14/17 ([facility]) Requesting physician: Rick Moran Consult reason: CABG evaluation. Chief complaint: NSTEMI History of present illness: Mr. Otto is a 71 year old type II diabetic, hypertensive man with known CAD , hypercholesterolemia, and known PAD. The patient experienced intermittent exertional substernal chest pain radiating to his left arm approximately 1 week ago. This resolved with rest. Yesterday at approximately 3 AM the patient was awakened from sleep with severe substernal chest pain radiating to his left arm. He had associated shortness of breath but denied any diaphoresis, nausea, vomiting, or syncope. The patient was evaluated at [facility] emergency department and found to have elevated troponin I levels and ECG changes consistent with an acute NSTEMI. The patient was given sublingual nitroglycerin and had relief of his substernal chest pain. He was admitted for further cardiac workup. He underwent an echocardiogram which revealed an LVEF of 35-40% with moderate global and segmental left ventricular systolic dysfunction. Subsequent cardiac catheterization revealed severe 3 vessel CAD and LVEF 35%. In particular the patient has a 90% proximal LAD lesion, a 70% mid LAD lesion, a completely occluded proximal LCx with distal filling via right to left collaterals, and a 60-70% mid RCA lesion. I have been asked to evaluate the patient for high risk CABG. Past Med Surg Social Fam HX - Past Medical History Medical history: cardiomyopathy, COPD, coronary artery disease, diabetes, hyperlipidemia, hypertension, myocardial infarction, other (BPH, maccular degeneration, Parkinson's disease) Psychiatric history: no psych history - Past Surgical History Surgical History: appendectomy, cataract (Bilateral with intraocular lens implantation.), cholecystectomy, other ((Possible) bilateral iliac artery angioplasty.) - Social History Smoking Status: Current every day smoker Packs per day: 1 Smokeless Tobacco Status: No Alcohol use: none Drug use: none Medications and Allergies Carbidopa/Levodopa [Carbidopa-Levodopa 25-250 Tab] 1 tab PO TID 03/14/17 [ History] Fluticasone/Salmeterol [Advair 500-50 Diskus] 1 puff IH BID 03/14/17 [History] Glimepiride [Amaryl] 1 mg PO QAM 03/14/17 [History] Lisinopril [Zestril] 40 mg PO DAILY 03/14/17 [History] Metformin [Glucophage] 500 mg PO DAILY 03/14/17 [History] Metoprolol Succinate 100 mg PO DAILY 03/14/17 [History] Pravastatin Sodium [Pravachol] 40 mg PO DAILY 03/14/17 [History] Tamsulosin [Flomax] 0.4 mg PO DAILY 03/14/17 [History] Vit A/Vit C/Vit E/Zinc/Copper [Preservision Areds Tablet] 2 tab PO DAILY [History] Allergies No Known Allergies Allergy (Verified 03/14/17 08:38) All Systems Review: A 10-system review of systems was performed and is negative for pertinent findings except as documented above in the HPI. Physical Examination Vital Signs, Last 4 Hours Temp Pulse Resp BP Pulse Ox 03/15/17 09:08 93 138/82 03/15/17 08:56 95 155/110 03/15/17 08:50 93 147/108 03/15/17 07:44 78 136/87 03/15/17 06:58 97.5 F L 77 18 146/87 95 General: Conversant, No Apparent Distress HEENT: Atraumatic, Normocephaly, Trachea midline Neck: No JVD, Normal carotid pulses Cardiac: Reg Rate and Rhythm, Normal S1 and S2, No Murmur Lungs: Normal Breath Sounds, No Wheeze, Rales, Rhonchi, Other (Expiratory puffing.) Neuro: Alert and responsive, No focal deficits noted Vascular: Normal capillary refill Extremities: No Clubbing, No Cyanosis, No Edema, Other (Pulses absent below the femoral arteries bilaterally.) Results 03/15/17 06:15 03/15/17 06:15 Lab Results, Last 24 hours 03/14/17 03/14/17 03/14/17 14:27 21:43 21:43 WBC Hgb Hct Plt Count APTT 43.1 H D Sodium Potassium Chloride Carbon Dioxide BUN Creatinine Glucose Calcium Magnesium Troponin I 1.00 H* 0.86 H* 03/15/17 03/15/17 03/15/17 06:15 06:15 06:15 WBC 9.9 Hgb 13.9 D Hct 41.6 Plt Count 118 L APTT 51.2 H Sodium 136 Potassium 3.9 Chloride 105 Carbon Dioxide 18 L BUN 14 Creatinine 0.85 Glucose 123 H Calcium 9.4 Magnesium 2.0 Troponin I - Imaging Chest Xray: image reviewed (Normal cardiac size. Bilateral diffuse perihilar interstitial changes.) Consult Discharge Plan - Plan Referrals: Chidi Gray MD [Primary Care Provider] - (web request sent on 03/15/17)
[2017-03-15] MEDS: Heparin 25,000 UNIT/500 ML D5W 25,000 UNIT/500 ML MLS IVC SCH (11:40)
[2017-03-15 15:53] VITALS: BP 105/69
--- NOTE | 2017-03-15 16:40 | Discharge Summary ---
Date of Encounter: 03/16/17 Time of Encounter: 09:44 - Discharge Diagnosis (1) NSTEMI (non-ST elevated myocardial infarction) Priority: Primary Status: Acute (2) Essential hypertension Priority: Secondary Status: Chronic (3) Hyperlipidemia Priority: Secondary Status: Chronic Qualifiers: Hyperlipidemia type: unspecified Qualified Code(s): E78.5 - Hyperlipidemia , unspecified (4) COPD (chronic obstructive pulmonary disease) Priority: Secondary Status: Chronic Qualifiers: COPD type: unspecified COPD Qualified Code(s): J44.9 - Chronic obstructive pulmonary disease, unspecified (5) CAD (coronary artery disease), [place] coronary artery Priority: Secondary Status: Chronic Qualifiers: [place] vs. transplanted heart: [place] heart Associated angina: with unstable angina Qualified Code(s): I25.110 - Atherosclerotic heart disease of [place] coronary artery with unstable angina pectoris (6) Parkinson disease Priority: Secondary Status: Chronic - Discharge Medications Home Medications: Carbidopa/Levodopa [Carbidopa-Levodopa 25-250 Tab] 1 tab PO TID 03/14/17 [ History] Fluticasone/Salmeterol [Advair 500-50 Diskus] 1 puff IH BID 03/14/17 [History] Glimepiride [Amaryl] 1 mg PO QAM 03/14/17 [History] Lisinopril [Zestril] 40 mg PO DAILY 03/14/17 [History] Metformin [Glucophage] 500 mg PO DAILY 03/14/17 [History] Metoprolol Succinate 100 mg PO DAILY 03/14/17 [History] Pravastatin Sodium [Pravachol] 40 mg PO DAILY 03/14/17 [History] Tamsulosin [Flomax] 0.4 mg PO DAILY 03/14/17 [History] Vit A/Vit C/Vit E/Zinc/Copper [Preservision Areds Tablet] 2 tab PO DAILY [History] Aspirin Enteric Coated [Aspirin EC] 325 mg PO DAILY tablet. 03/15/17 [Rx] Heparin 2,000 unit IVP Q6H PRN #0 vial 03/15/17 [Rx] Heparin 4,000 unit IVP Q6HR PRN #0 vial 03/15/17 [Rx] Ipratropium/Albuterol Neb [Duoneb] 3 ml IH [id number] PRN #0 inhsol 03/15/17 [Rx] Allergies/Adverse Reactions: Allergies No Known Allergies Allergy (Verified 03/14/17 08:38) Procedures/tests Complete & Pending: Procedures Performed prior 72 hours Category Date Time Status ECG 12 lead ECG [ECG] Routine Y 03/14/17 19:33 Completed EV echocardiogram Routine Y 03/14/17 11:20 Completed Date of admission: 03/14/17 11:17 Primary care physician: Chidi Gray MD Consults: 03/14/17 11:39 Consult to Cardiac Rehabilitation-Phase1 [CONS] Routine Comment: Reason for Consult: NSTEMI Call Completed: No 03/14/17 13:11 Consult to Cardiothoracic Surgery [CONS] Routine Consulting Provider: Cardiothoracic Surgery Arlin Reason for Consult: cabg Call Completed: Yes Discharging clinician: Allison Marin Anticipated date of discharge: 03/15/17 - Patient Status Disposition: Transfer Critical Access Hosp Condition: Serious Functional capacity at discharge: uses cane/walker Overall status at discharge: patient is not back to baseline - Discharge Instructions Follow Up With: Chidi Gray MD [Primary Care Provider] - (web request sent on 03/15/17) Hospital course: Mr. Otto is a 71 year old male with the above medical problems, initially admitted with chest pain. He was noted to have diffuse ST depression on EKG along with elevated serum troponin. Patient was started on anticoagulation with IV heparin drip along with aspirin, beta cecilia and statin. He also continued to have ongoing retrosternal chest pain and was started on IV nitroglycerin drip with appropriate control. His maximum serum troponin was noted to be 1. Cardiology was consulted and patient underwent left heart catheterization which revealed multivessel coronary artery disease and patient was recommended to undergo CABG. He was also evaluated by cardiothoracic surgery who recommended high risk PCI versus CABG due to multiple underlying comorbidities, posing a higher risk of intraoperative mortality. Echocardiogram was done which showed severely decreased ejection fraction of 35%, moderate global and segmental left ventricle systolic dysfunction, mild left ventricular diastolic dysfunction. At this point, cardiology recommends transferring patient to a tertiary care facility for possible high risk PCI. Case has been discussed with hospitalist service and cardiology at [facility] and patient is being transferred for further management. He is medically stable for this transfer. - Time Spent with Patient Total time spent providing and/or coordinating discharge services: Greater than 30 minutes (55 min) - Constitutional Vitals: Temp Pulse Resp BP Pulse Ox 97.5 F L 74 18 105/69 92 03/15/17 15:51 03/15/17 15:51 03/15/17 15:51 03/15/17 15:51 03/15/17 15:51 General appearance: Present: mild distress, A&O X 3, answers questions appropriately - Respiratory Respiratory exam: Present: CTAB. Absent: accessory muscle use, rales, rhonchi, wheezes - Cardiovascular Cardiovascular exam: Present: RRR, +S1, +S2. Absent: diastolic murmur, gallop, rubs, systolic murmur
--- NOTE | 2017-03-15 20:16 | Electrocardiograph Report ---
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
--- NOTE | 2017-03-15 20:17 | Electrocardiograph Report ---
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
--- NOTE | 2017-03-15 20:38 | Electrocardiograph Report ---
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
[2017-03-18 12:15] LABS: CK-BB (CK isoenzymes) 0 % (0-0); CK-MB (CK isoenzymes) 0 % (0-4); CK-MM (CK-isoenzymes) 100 % (96-100)
[2017-03-18 12:15] LABS: CK-BB (CK isoenzymes) 0 % (0-0); CK-MB (CK isoenzymes) 0 % (0-4); CK-MM (CK-isoenzymes) 100 % (96-100)
[2017-03-18 12:55] LABS: CK Total (Ck Isoenzymes) 75 U/L (20-200)
[2017-03-18 12:55] LABS: CK Total (Ck Isoenzymes) 75 U/L (20-200)
== END 2017-03-15 18:04 | disposition critical access hospital (66) | DRG 281 ==
LOC: EMEROO 08:28 → 2ANU 08:28 → SUATTDRO 11:17 → 2ANU 11:27
PROVIDERS: ADMIT Hospitalist; ATTEND Internal Medicine

== ENCOUNTER 2017-06-12 11:45 | Inpatient (IN) ==
--- NOTE | 2017-06-12 12:16 | Emergency Department Note ---
Disposition Clinical Impression: Shortness of breath Pneumonia Qualifiers: Pneumonia type: due to unspecified organism Laterality: left Lung location: lower lobe of lung Qualified Code(s): J18.1 - Lobar pneumonia, unspecified organism Lung cancer Qualifiers: Laterality: unspecified laterality Lung location: unspecified part of lung Qualified Code(s): C34.90 - Malignant neoplasm of unspecified part of unspecified bronchus or lung Disposition: Admitted As Inpatient Condition: Fair Referrals: Soto Naqvi MD [Primary Care Provider] - Forms: ED Satisfaction Letter Time of Disposition: 13:16 SOB HPI - General Chief Complaint: ED Shortness of Breath/Dyspnea Stated Complaint: SOB Time Seen by Provider: 06/12/17 11:51 Source: patient, family Limitations: no limitations Nursing Notes Reviewed: Yes Vital Signs Reviewed: Yes - History of Present Illness Patient is a 71-year-old male with a history of lung cancer presents to emergency department for shortness of breath. States that the shortness of breath began yesterday after chemotherapy and radiation. Patient states that he became short of breath while walking to the vehicle but felt that it was due to it being hot out. Today they called the doctor to see him and he stated that he should come to the emergency department to be seen. Patient states that nothing seems to make his symptoms any better but laying back or exerting himself seems to make the symptoms worse. Patient has a history of coronary artery bypass graft which she required oxygen for several February he no longer requires any oxygen at home. - Related Data Home Medications Medication Instructions Recorded Confirmed Carbidopa/Levodopa 1 tab PO TID 03/14/17 06/09/17 [Carbidopa-Levodopa 25-250 Tab] Glimepiride [Amaryl] 1 mg PO QAM 03/14/17 06/09/17 Lisinopril [Zestril] 40 mg PO DAILY 03/14/17 06/09/17 Metoprolol Succinate 100 mg PO DAILY 03/14/17 06/09/17 Pravastatin Sodium [Pravachol] 40 mg PO DAILY 03/14/17 06/09/17 Tamsulosin [Flomax] 0.4 mg PO DAILY 03/14/17 06/09/17 Vit A/Vit C/Vit E/Zinc/Copper 2 tab PO DAILY 03/14/17 06/09/17 [Preservision Areds Tablet] metFORMIN [Glucophage] 500 mg PO DAILY 03/14/17 06/09/17 Previous Rx's Medication Instructions Recorded Aspirin Enteric Coated [Aspirin EC] 325 mg PO DAILY tablet. 03/15/17 Dexamethasone [Decadron] 4 mg PO BID #36 tab 05/04/17 Magic Mouthwash [Magic Mouthwash 10 ml PO QID PRN #240 ml 05/04/17 BLM] Ondansetron HCl [Zofran] 4 mg PO TID PRN #90 tablet 05/04/17 Docusate [Colace] 100 mg PO BID #60 capsule 06/09/17 Omeprazole Magnesium [Prilosec Otc] 20 mg PO DAILY #30 tablet. 06/09/17 Allergies Allergy/AdvReac Type Severity Reaction Status Date / Time No Known Allergies Allergy Verified 05/19/17 11:25 All systems ED: reviewed and negative except as stated. Constitutional: Denies: fever, chills Cardiovascular: Denies: chest pain, palpitations Respiratory: Reports: dyspnea Genitourinary: Denies: dysuria Past Medical History - Past Medical History Attestation: Yes The following information was validated with the patient. Source: patient Medical history: Reports: cardiomyopathy, COPD, coronary artery disease, diabetes, hyperlipidemia, hypertension, myocardial infarction, other Surgical history: Reports: appendectomy, cataract, cholecystectomy, other Psychiatric history: Reports: no psych history - Social History Smoking Status: Former smoker Smokeless Tobacco Status: No Alcohol use: Reports: none Drug use: Reports: none Physical Exam - General Limitations: no limitations General appearance: alert, anxious - Head Head exam: atraumatic, normocephalic - Neck Neck exam: Present: normal inspection, full ROM, trachea midline - Chest Chest inspection: Present: symmetric chest wall rise, other (Markings for radiation therapy present.) - Respiratory Respiratory exam: Present: other (Crackles bilaterally). Absent: respiratory distress - Cardiovascular Cardiovascular exam: Present: regular rate, irregular rhythm, normal heart sounds, +S1, +S2 - Abdominal Exam Abdominal exam: Present: soft, Non-Tender, normal bowel sounds - Neurological Exam Neurological exam: Present: alert, oriented X3 - Psychiatric Psychiatric exam: Present: normal affect, anxious - Skin Skin exam: Present: warm, dry, intact Course Vital Signs Temperature 97.4 F L 06/12/17 11:46 Pulse Rate 93 06/12/17 11:46 Respiratory Rate 20 06/12/17 11:46 Blood Pressure 134/83 06/12/17 11:46 O2 Sat by Pulse Oximetry 91 06/12/17 11:46 Temperature 97.4 F L 06/12/17 11:46 Pulse Rate 87 06/12/17 12:36 Respiratory Rate 10 06/12/17 12:36 Blood Pressure 144/124 06/12/17 12:36 O2 Sat by Pulse Oximetry 94 06/12/17 12:36 Oxygen Delivery Oxygen Delivery Nasal Cannula Shortness of Breath/Dyspnea - MDM Narrative Medical decision making narrative: Patient is a 77-year-old male that presents emergency department with shortness of breath. States that it began yesterday after chemotherapy. Patient chest x- ray showed a left lower infiltrate. We will begin treatment with antibiotics for the patient and will admit him to the hospital for IV antibiotics. Patient had a elevated troponin 0.05 which is consistent with his baseline. After the breathing treatment he states that he is feeling better. I have spoken with Dr. Calvo at 1:35 PM and he will accept the patient to his service. - Medical Records Medical records reviewed: Yes I reviewed the patient's medical records. - Lab Data Lab results reviewed: Yes I reviewed the patient's lab results. Result diagrams: 06/12/17 12:29 06/12/17 12:29 Lab Results 06/12/17 06/12/17 06/12/17 Range/Units 12:29 12:29 12:29 WBC 8.8 (4.3-11.1) K/mcL RBC 3.65 L (4.19-5.50) M/mcL Hgb 11.4 L (12.9-16.9) g/dL Hct 35.0 L (37.5-50.1) % MCV 95.9 (83.0-100.0) fL MCH 31.2 (28.0-33.3) pg MCHC 32.6 (31.6-35.5) g/dL RDW 16.6 H (11.5-14.5) % Plt Count 149 (140-400) K/mcL MPV 10.7 (9.4-12.4) fL Immature Gran % 0.8 (0-4) % Seg Neutrophils % 76.1 % Lymphocytes % 14.4 % Monocytes % 8.6 % Eosinophils % 0.0 % Basophils % 0.1 % Neutrophils # 6.7 (1.6-8.9) K/mcL Lymphocytes # 1.3 (0.6-4.6) K/mcL Monocytes # 0.8 (0.0-1.3) K/mcL Eosinophils # 0.0 (0.0-0.6) K/mcL Basophils # 0.0 (0.0-0.2) K/mcL Sodium 135 L (136-145) mEq/L Potassium 4.1 (3.5-4.5) mEq/L Chloride 105 (98-109) mEq/L Carbon Dioxide 24 (19-29) mEq/L BUN 24 (8-26) mg/dL Creatinine 1.09 (0.72-1.25) mg/dL Est GFR ( Amer) > 60 (> 60) Est GFR (Non-Af Amer) > 60 (> 60) BUN/Creatinine Ratio 22 (6-26) Glucose 148 H (70-99) mg/dL Calculated Osmolality 287 (280-300) Lactic Acid 1.9 (0.5-2.2) mmol/L Calcium 9.0 (8.6-10.8) mg/dL Troponin I (0-0.03) ng/mL B-Natriuretic Peptide (0-100) pg/mL 06/12/17 06/12/17 Range/Units 12:29 12:29 WBC (4.3-11.1) K/mcL RBC (4.19-5.50) M/mcL Hgb (12.9-16.9) g/dL Hct (37.5-50.1) % MCV (83.0-100.0) fL MCH (28.0-33.3) pg MCHC (31.6-35.5) g/dL RDW (11.5-14.5) % Plt Count (140-400) K/mcL MPV (9.4-12.4) fL Immature Gran % (0-4) % Seg Neutrophils % % Lymphocytes % % Monocytes % % Eosinophils % % Basophils % % Neutrophils # (1.6-8.9) K/mcL Lymphocytes # (0.6-4.6) K/mcL Monocytes # (0.0-1.3) K/mcL Eosinophils # (0.0-0.6) K/mcL Basophils # (0.0-0.2) K/mcL Sodium (136-145) mEq/L Potassium (3.5-4.5) mEq/L Chloride (98-109) mEq/L Carbon Dioxide (19-29) mEq/L BUN (8-26) mg/dL Creatinine (0.72-1.25) mg/dL Est GFR ( Amer) (> 60) Est GFR (Non-Af Amer) (> 60) BUN/Creatinine Ratio (6-26) Glucose (70-99) mg/dL Calculated Osmolality (280-300) Lactic Acid (0.5-2.2) mmol/L Calcium (8.6-10.8) mg/dL Troponin I 0.05 H* (0-0.03) ng/mL B-Natriuretic Peptide 1034 H (0-100) pg/mL - Radiology Data Radiology results reviewed: Yes I reviewed the patient's radiology results. Chest X-Ray 06/12/17 12:08 IMPRESSION: Stable interstitial changes throughout the lungs. This may be chronic, in part related to underlying COPD. Superimposed left lower lobe infiltrate and left pleural effusion . D/ / Sinan Mckeon MD / Sinan Mckeon MD Interpreting Provider: Sinan Mckeon MD - EKG Data EKG attestation: Yes I reviewed and interpreted this EKG. EKG results narrative: The first EKG showed a sinus rhythm with PACs. Rate is 80, WA interval 180, Q druze 105, QTC 418 with a normal axis. With nonspecific ST changes. The EKG was repeated and EKG #2 showed sinus rhythm with PACs at a rate of 73 bpm, QRS duration of all 5, QTC 386, and a normal axis. With nonspecific ST changes. Both of these EKGs were compared to a previous EKG on 03/14/17 there were no acute changes noted
[2017-06-12] MEDS ORDERED: Ipratropium/Albuterol Neb 3 ML IH ONE (12:17)
[2017-06-12] MEDS ORDERED: Ipratropium/Albuterol Neb 3 ML ONE (12:18)
[2017-06-12 12:41] LABS: Basophils % 0.1 %; Hemoglobin 11.4 g/dL (12.9-16.9); Immature Granulocytes % 0.8 % (0-4); Lymphocytes # 1.3 K/mcL (0.6-4.6); Lymphocytes % 14.4 %; Mean Corpuscular HGB Conc 32.6 g/dL (31.6-35.5); Mean Corpuscular Hemoglobin 31.2 pg (28.0-33.3); Mean Corpuscular Volume 95.9 fL (83.0-100.0); Mean Platelet Volume 10.7 fL (9.4-12.4); Monocytes # 0.8 K/mcL (0.0-1.3); Monocytes % 8.6 %; Neutrophils # 6.7 K/mcL (1.6-8.9); Platelet Count 149 K/mcL (140-400); Red Blood Count 3.65 M/mcL (4.19-5.50); Red Cell Distribution Width 16.6 % (11.5-14.5); Segmented Neutrophils % 76.1 %
[2017-06-12] MEDS ORDERED: Piperacillin/Tazobactam 3.375 GM in D5% in Water (Mini-Bag+) 100 ML IVPB ONE (12:44)
[2017-06-12] MEDS ORDERED: Levofloxacin 500 MG/100 ML 500 MG/100 ML BAG IVPB ONE (12:44)
[2017-06-12] MEDS ORDERED: Vancomycin 1,500 MG in D5% in Water 250 ML IVPB ONE (12:48)
[2017-06-12 12:53] LABS: BUN/Creatinine Ratio 22 (6-26); Blood Urea Nitrogen 24 mg/dL (8-26); Carbon Dioxide 24 mEq/L (19-29); Chloride 105 mEq/L (98-109); Glucose 148 mg/dL (70-99); Osmolality,Calculated 287 (280-300); Potassium 4.1 mEq/L (3.5-4.5); Sodium 135 mEq/L (136-145); eGFR For African Americans > 60 (> 60); eGFR For Non-African Americans > 60 (> 60)
--- NOTE | 2017-06-12 13:25 | Emergency Department Note ---
START Narrative - START START: I examined this patient and my medical decision-making was reviewed with the Resident Physician. I agree with the documented findings, disposition and treatment plan as described except to the extent set forth below. Patient presents to the emergency department with a chief complaint of shortness of breath and cough. Symptoms started yesterday. Patient's currently under the care of the cancer center for lung cancer. It was incidentally found during his cardiac bypass graft in February. His symptoms started after his chemotherapy yesterday. Gradual onset. Y states he is up all night coughing. Denies fever. On exam he is in no acute distress sitting up in bed. He is mildly tachypneic. Plan. Patient felt better after nebulizer treatments. His lungs are just diminished. He will be admitted for IV antibiotic.
[2017-06-12] MEDS ORDERED: Naloxone 0.4 MG/ML INJ IVP PRN (14:05)
[2017-06-12] MEDS ORDERED: Acetaminophen 325 MG TABLET PO PRN (14:05)
[2017-06-12] MEDS ORDERED: Ipratropium/Albuterol Neb 3 ML IH PRN (14:13)
[2017-06-12] MEDS ORDERED: *HR* Dextrose 50 % in Water (Syg) 50 ML SYRINGE IVP PRN (14:15)
[2017-06-12] MEDS ORDERED: Dextrose Gel 15 GM PO PRN ×2 (14:15)
[2017-06-12] MEDS ORDERED: D5% in Water 1,000 ML IVC PRN (14:15)
[2017-06-12] MEDS ORDERED: MOM Conc 10 ML UD.LIQ PO PRN (14:33)
--- NOTE | 2017-06-12 14:33 | Internal Med History&Physical ---
Date of Encounter: 06/12/17 Time of Encounter: 13:00 Assessment and Plan (1) Diabetes Current visit: Yes Status: Acute Will cover patient with sliding scale Qualifiers: Diabetes mellitus type: type 2 Diabetes mellitus complication status: without complication Diabetes mellitus long-term insulin use: without terminal system operator use Qualified Code(s): E11.9 - Type 2 diabetes mellitus without complications (2) CHF (congestive heart failure) Current visit: Yes Status: Acute Patient has history of CHF with EF 35%, echo result was before CABG. Patient has a mild to moderate elevated BNP, no leg edema, chest x-ray shows no congestion. - We will give mild diuretics, with Lasix 20 mg IV once a day. - We will repeat echocardiogram. - Continue beta cecilia and LIZZ inhibitor. Qualifiers: Congestive heart failure type: systolic Congestive heart failure chronicity : chronic Qualified Code(s): I50.22 - Chronic systolic (congestive) heart failure (3) DVT prophylaxis Current visit: Yes Status: Acute Heparin subcutaneously (4) Pneumonia Current visit: Yes Status: Acute Patient has recent hospitalization and heart surgery. Treat patient as brown care associated pneumonia. - Treat patient with Vanco, Zosyn, and Levaquin. - Oxygen supportive treatment. - Duoneb nebulizer - Cough syrup for symptoms treatment. Qualifiers: Pneumonia type: due to Pneumococcus Laterality: left Lung location: lower lobe of lung Qualified Code(s): J13 - Pneumonia due to Streptococcus pneumoniae (5) Lung cancer Current visit: Yes Status: Acute Small cell lung cancer, patient is following with oncologist for chemotherapy and radiation therapy. Qualifiers: Laterality: unspecified laterality Lung location: unspecified part of lung Qualified Code(s): C34.90 - Malignant neoplasm of unspecified part of unspecified bronchus or lung (6) COPD (chronic obstructive pulmonary disease) Current visit: No Status: Chronic Stable, no signs of exacerbation. Bronchodilators placed. Oxygen therapy. Qualifiers: COPD type: unspecified COPD Qualified Code(s): J44.9 - Chronic obstructive pulmonary disease, unspecified (7) CAD (coronary artery disease), [place] coronary artery Current visit: No Status: Chronic S/P CABG, no chest pain. Mild elevated troponin noticed, will track 3 sets of troponin. EKG unremarkable. Qualifiers: [place] vs. transplanted heart: [place] heart Associated angina: with unstable angina Qualified Code(s): I25.110 - Atherosclerotic heart disease of [place] coronary artery with unstable angina pectoris (8) Essential hypertension Current visit: No Status: Chronic Continue home medications. (9) Parkinson disease Current visit: No Status: Chronic Continue home medication. Internal Medicine - H&P: HPI Chief complaint: SOB Admitted From: Home Plans for Post Hospital Care: Home History of present illness: Mr. Otto is a 71 year old male presented to the emergency room for shortness of breath. Patient has history of small cell lung cancer on chemotherapy and radiation therapy. He also has history of CAD and had CABG 3 months ago. Patient said he started to have shortness of breath yesterday after chemotherapy, patient has chronic nonproductive cough, which seems no change. Patient denies chest pain, denies of fever, denies nausea or diaphoresis. Patient has no runny nose or sore throat. In emergency room, he was treated with DuoNeb nebulizer and his shortness of breath has improved after treatment. CXR shows left lower lobe infiltrate, patient was admitted as pneumonia. Past Med Surg Social Fam HX - Past Medical History Medical history: cardiomyopathy, COPD, coronary artery disease, diabetes, hyperlipidemia, hypertension, myocardial infarction, other Psychiatric history: no psych history - Past Surgical History Surgical History: appendectomy, cataract, cholecystectomy, other - Social History Smoking Status: Former smoker Smokeless Tobacco Status: No Alcohol use: none Drug use: none Internal Medicine - H&P: Meds Carbidopa/Levodopa [Carbidopa-Levodopa 25-250 Tab] 1 tab PO TID 03/14/17 [ History] Glimepiride [Amaryl] 1 mg PO QAM 03/14/17 [History] Lisinopril [Zestril] 40 mg PO DAILY 03/14/17 [History] Pravastatin Sodium [Pravachol] 40 mg PO DAILY 03/14/17 [History] Tamsulosin [Flomax] 0.4 mg PO DAILY 03/14/17 [History] Vit A/Vit C/Vit E/Zinc/Copper [Preservision Areds Tablet] 2 tab PO DAILY [History] metFORMIN [Glucophage] 500 mg PO DAILY 03/14/17 [History] Aspirin Enteric Coated [Aspirin EC] 325 mg PO DAILY tablet. 03/15/17 [Rx] Dexamethasone [Decadron] 4 mg PO BID #36 tab 05/04/17 [Rx] Magic Mouthwash [Magic Mouthwash BLM] 10 ml PO QID PRN #240 ml 05/04/17 [Rx] Ondansetron HCl [Zofran] 4 mg PO TID PRN #90 tablet 05/04/17 [Rx] Docusate [Colace] 100 mg PO BID #60 capsule 06/09/17 [Rx] Omeprazole Magnesium [Prilosec Otc] 20 mg PO DAILY #30 tablet. 06/09/17 [Rx] Linagliptin [Tradjenta] 5 mg PO DAILY 06/12/17 [History] Metoprolol [Lopressor] 25 mg PO BID 06/12/17 [History] Allergies No Known Allergies Allergy (Verified 05/19/17 11:25) All Systems PM: A 10-system review of systems was performed and is negative for pertinent findings except as documented above in the HPI. - Constitutional Vitals: Temp Pulse Resp BP Pulse Ox 97.4 F L 87 20 154/66 94 06/12/17 11:46 06/12/17 12:36 06/12/17 13:54 06/12/17 13:54 06/12/17 12:36 General appearance: Present: A&O X 3, no acute distress, answers questions appropriately - Head Head exam: Present: atraumatic, normocephalic - Eye Eye exam: Present: PERRL, conjuntiva pink, sclera anicteric Pupils: Present: PERRL - Neck Neck exam general surgery: Present: supple, trachea midline. Absent: lymphadenopathy - Respiratory Respiratory exam: Present: CTAB. Absent: accessory muscle use, rales, rhonchi, wheezes Additional comments: Coarse breath sound on left side. - Cardiovascular Cardiovascular exam: Present: RRR, +S1, +S2. Absent: diastolic murmur, gallop, rubs, systolic murmur - GI/Abdominal GI/Abdominal exam: Present: normal bowel sounds, soft, no peritoneal signs. Absent: distended, tenderness - Extremities Exam Extremities exam: Present: warm, radial pulses palpable and symetrical. Absent : calf tenderness, cyanotic, pedal edema - Neurological Exam Neurological exam: Present: CN II-XII intact, oriented X3, no focal deficits. Absent: pronater drift, facial droop, speech deficit - Skin Skin exam: Present: dry, intact Internal Med - H&P Results - Labs CBC & Chem 7: 06/12/17 12:29 06/12/17 12:29 - EKG Data -: EKG Interpreted by Myself EKG shows normal: sinus rhythm Rate: normal (Multiple APCs)
[2017-06-12] MEDS ORDERED: Vancomycin 1,250 MG in D5% in Water 250 ML IVPB SCH (15:00)
[2017-06-12] MEDS: Ipratropium/Albuterol Neb 3 ML IH SCH ×2 (15:13→23:06)
[2017-06-12] MEDS: Furosemide 20 MG/2 ML VIAL IVP SCH (16:45)
[2017-06-12] MEDS: *HR* Heparin 5,000 UNIT/ML VIAL SQ SCH (16:45)
[2017-06-12] MEDS: Insulin LISPRO 300 UNITS/3 ML VIAL SQ SCH ×2 (16:46→22:30)
[2017-06-12] MEDS: Carbidopa/Levodopa 25/250 TABLET PO SCH ×2 (16:48→22:27)
[2017-06-13 01:24] LABS: Basophils # 0.1 K/mcL (0.0-0.2); Basophils % 0.7 %; Eosinophils % 0.3 %; Hematocrit 32.7 % (37.5-50.1); Hemoglobin 10.7 g/dL (12.9-16.9); Immature Granulocytes % 0.7 % (0-4); Lymphocytes # 0.8 K/mcL (0.6-4.6); Lymphocytes % 11.3 %; Mean Corpuscular HGB Conc 32.7 g/dL (31.6-35.5); Mean Corpuscular Hemoglobin 31.4 pg (28.0-33.3); Mean Corpuscular Volume 95.9 fL (83.0-100.0); Mean Platelet Volume 10.7 fL (9.4-12.4); Monocytes # 0.4 K/mcL (0.0-1.3); Monocytes % 5.4 %; Neutrophils # 6.1 K/mcL (1.6-8.9); Platelet Count 132 K/mcL (140-400); Red Blood Count 3.41 M/mcL (4.19-5.50); Red Cell Distribution Width 16.7 % (11.5-14.5); Segmented Neutrophils % 81.6 %
[2017-06-13 01:36] LABS: BUN/Creatinine Ratio 20 (6-26); Blood Urea Nitrogen 25 mg/dL (8-26); Calcium 8.6 mg/dL (8.6-10.8); Carbon Dioxide 25 mEq/L (19-29); Chloride 105 mEq/L (98-109); Glucose 148 mg/dL (70-99); Magnesium 1.7 mg/dL (1.6-2.6); Osmolality,Calculated 291 (280-300); Potassium 3.9 mEq/L (3.5-4.5); Sodium 137 mEq/L (136-145); eGFR For African Americans > 60 (> 60); eGFR For Non-African Americans 57 (> 60)
[2017-06-13] MEDS ORDERED: Vancomycin 1,250 MG in D5% in Water 250 ML IVPB SCH (03:00)
[2017-06-13 04:18] LABS: Acinetobacter baumannii by PCR Not Detected (Not Detect); Candida albicans by PCR Not Detected (Not Detect); Candida glabrata by PCR Not Detected (Not Detect); Candida krusei by PCR Not Detected (Not Detect); Candida parapsilosis by PCR Not Detected (Not Detect); Candida tropicalis by PCR Not Detected (Not Detect); Enterococcus by PCR Not Detected (Not Detect); Escherichia coli by PCR Not Detected (Not Detect); Klebsiella oxytoca by PCR Not Detected (Not Detect); Klebsiella pneumoniae by PCR Not Detected (Not Detect); Pseudomonas aeruginosa by PCR Not Detected (Not Detect); Serratia marcescens by PCR Not Detected (Not Detect); Staphylococcus aureus by PCR Not Detected (Not Detect); Streptococcus agalactiae(B)PCR Not Detected (Not Detect); Streptococcus by PCR ***DETECTED*** (Not Detect); Streptococcus pneumoniae PCR Not Detected (Not Detect); Streptococcus pyogenes (A) PCR Not Detected (Not Detect); blaKPC Carbapenem-Resist Gene Not Detected (Not Detect); mecA Methicillin-Resist Gene Not Detected (Not Detect); vanA/B Vancomycin-Resist Genes Not Detected (Not Detect)
[2017-06-13] MEDS: Ipratropium/Albuterol Neb 3 ML IH SCH ×4 (04:20→21:56)
[2017-06-13] MEDS: *HR* Heparin 5,000 UNIT/ML VIAL SQ SCH ×2 (05:37→17:36)
[2017-06-13] MEDS ORDERED: NON-FORMULARY MEDICATION 1 EACH EACH (Metoprolol Succinate [Metoprolol Succinate] 100 MG) PO SCH (09:00)
[2017-06-13] MEDS: Lisinopril 20 MG TABLET PO SCH (09:29)
[2017-06-13] MEDS: Carbidopa/Levodopa 25/250 TABLET PO SCH ×3 (09:29→21:06)
[2017-06-13] MEDS: Aspirin Enteric Coated 325 MG Tablet PO SCH (09:29)
[2017-06-13] MEDS: Furosemide 20 MG/2 ML VIAL IVP SCH (09:29)
[2017-06-13] MEDS: Piperacillin/Tazobactam 3.375 GM in D5% in Water (Mini-Bag+) 100 ML IVPB SCH ×2 (09:31→09:32)
--- NOTE | 2017-06-13 10:47 | Internal Med Progress Note ---
Date of Encounter: 06/13/17 Time of Encounter: 10:45 - Assessment and plan (1) Pneumonia Current Visit: Yes Status: Acute Assessment and plan: Possible community-acquired pneumonia caused by possible Streptococcus Unlikely healthcare associated pneumonia Blood culture growing gram-positive cocci Continue Levaquin day 2, discontinue Zosyn and vancomycin No IV fluids due to CHF Chest x-ray showed superimposed left lower lobe infiltrate and left pleural effusion Qualifiers: Pneumonia type: due to Pneumococcus Laterality: left Lung location: lower lobe of lung Qualified Code(s): J13 - Pneumonia due to Streptococcus pneumoniae (2) CHF (congestive heart failure) Current Visit: Yes Status: Acute Assessment and plan: Acute systolic and diastolic CHF exacerbation Prior echocardiogram showed an ejection fraction of 35% with mild diastolic dysfunction is Continue IV Lasix daily Qualifiers: Congestive heart failure type: systolic Congestive heart failure chronicity : chronic Qualified Code(s): I50.22 - Chronic systolic (congestive) heart failure (3) Lung cancer Current Visit: Yes Status: Acute Assessment and plan: History of small cell lung cancer status post chemotherapy and radiotherapy Qualifiers: Laterality: unspecified laterality Lung location: unspecified part of lung Qualified Code(s): C34.90 - Malignant neoplasm of unspecified part of unspecified bronchus or lung (4) Diabetes Current Visit: Yes Status: Acute Assessment and plan: Continue insulin sliding scale Qualifiers: Diabetes mellitus type: type 2 Diabetes mellitus complication status: without complication Diabetes mellitus termination clerk insulin use: without termination clerk use Qualified Code(s): E11.9 - Type 2 diabetes mellitus without complications (5) COPD (chronic obstructive pulmonary disease) Current Visit: No Status: Chronic Assessment and plan: No exacerbation No steroids for now Qualifiers: COPD type: unspecified COPD Qualified Code(s): J44.9 - Chronic obstructive pulmonary disease, unspecified (6) Essential hypertension Current Visit: No Status: Chronic (7) Parkinson disease Current Visit: No Status: Chronic Assessment and plan: Continue Sinemet - Subjective Interval history: Feels less short of breath, denies any chest pain, no abdominal pain, no fevers , no diarrhea, no dysuria. Less congested - Constitutional Vitals: Temp Pulse Resp BP Pulse Ox 97.4 F L 94 17 122/74 96 06/13/17 07:39 06/13/17 07:39 06/13/17 07:39 06/13/17 07:39 07/22/17 07:39 General appearance: Present: A&O X 3, no acute distress, answers questions appropriately - Head Head exam: Present: atraumatic, normocephalic - Eye Eye exam: Present: PERRL, conjuntiva pink, sclera anicteric Pupils: Present: PERRL - Neck Neck exam general surgery: Present: supple, trachea midline. Absent: lymphadenopathy - Respiratory Respiratory exam: Present: decreased breath sounds, CTAB, rales (Minimal fine crackles on the left side). Absent: accessory muscle use, rhonchi, wheezes - Cardiovascular Cardiovascular exam: Present: RRR, +S1, +S2. Absent: diastolic murmur, gallop, rubs, systolic murmur - GI/Abdominal GI/Abdominal exam: Present: normal bowel sounds, soft, no peritoneal signs. Absent: distended, tenderness - Extremities Exam Extremities exam: Present: warm, radial pulses palpable and symetrical. Absent : calf tenderness, cyanotic, pedal edema - Neurological Exam Neurological exam: Present: CN II-XII intact, oriented X3, no focal deficits. Absent: pronater drift, facial droop, speech deficit - Skin Skin exam: Present: dry, intact Additional comments: Port-A-Cath on the right upper chest Internal Medicine: Result - Labs CBC & Chem 7: 06/13/17 01:16 06/13/17 01:16 Labs: Short CBC 06/13/17 Range/Units 01:16 WBC 7.4 (4.3-11.1) K/mcL Hgb 10.7 L (12.9-16.9) g/dL Hct 32.7 L (37.5-50.1) % Plt Count 132 L (140-400) K/mcL Neutrophils # 6.1 (1.6-8.9) K/mcL BMP 06/13/17 01:16 Sodium 137 Potassium 3.9 Chloride 105 Carbon Dioxide 25 BUN 25 Creatinine 1.25 Glucose 148 H Calcium 8.6 Cardiac Enzymes 06/13/17 Range/Units 01:16 Troponin I 0.05 H* (0-0.03) ng/mL Consult Discharge Plan - Plan Referrals: Soto Naqvi MD [Primary Care Provider] -
[2017-06-13] MEDS: Insulin LISPRO 300 UNITS/3 ML VIAL SQ SCH ×4 (10:57→21:06)
[2017-06-13] MEDS ORDERED: Ondansetron 4 MG/2 ML VIAL IVP PRN (13:50)
[2017-06-14] MEDS: Ipratropium/Albuterol Neb 3 ML IH SCH (03:48)
[2017-06-14 05:09] LABS: BUN/Creatinine Ratio 26 (6-26); Blood Urea Nitrogen 32 mg/dL (8-26); Calcium 8.8 mg/dL (8.6-10.8); Carbon Dioxide 26 mEq/L (19-29); Chloride 104 mEq/L (98-109); Glucose 166 mg/dL (70-99); Osmolality,Calculated 293 (280-300); Potassium 4.3 mEq/L (3.5-4.5); Sodium 136 mEq/L (136-145); eGFR For African Americans > 60 (> 60); eGFR For Non-African Americans 58 (> 60)
[2017-06-14] MEDS: *HR* Heparin 5,000 UNIT/ML VIAL SQ SCH (05:53)
[2017-06-14 07:34] VITALS: BP 102/65
--- NOTE | 2017-06-14 08:13 | Discharge Summary ---
Date of Encounter: 06/14/17 Time of Encounter: 08:06 - Discharge Diagnosis (1) Pneumonia Priority: Primary Status: Acute Comments: Possible community-acquired pneumonia caused by possible Streptococcus ( might be a contaminant) Improving on Levaquin Unlikely healthcare associated pneumonia Blood culture growing gram-positive cocci, duncan strep, sent to another micro lab ( likely contaminant) Qualifiers: Pneumonia type: due to Pneumococcus Laterality: left Lung location: lower lobe of lung Qualified Code(s): J13 - Pneumonia due to Streptococcus pneumoniae (2) CHF (congestive heart failure) Priority: Secondary Status: Acute Qualifiers: Congestive heart failure type: systolic Congestive heart failure chronicity : chronic Qualified Code(s): I50.22 - Chronic systolic (congestive) heart failure (3) Lung cancer Priority: Secondary Status: Acute Qualifiers: Laterality: unspecified laterality Lung location: unspecified part of lung Qualified Code(s): C34.90 - Malignant neoplasm of unspecified part of unspecified bronchus or lung (4) Diabetes Priority: Secondary Status: Acute Qualifiers: Diabetes mellitus type: type 2 Diabetes mellitus complication status: without complication 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 insulin use: without buttermilk 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 use Qualified Code(s): E11.9 - Type 2 diabetes mellitus without complications (5) COPD (chronic obstructive pulmonary disease) Priority: Secondary Status: Chronic Qualifiers: COPD type: unspecified COPD Qualified Code(s): J44.9 - Chronic obstructive pulmonary disease, unspecified (6) Essential hypertension Priority: Secondary Status: Chronic (7) Parkinson disease Priority: Secondary Status: Chronic - Discharge Medications Prescriptions: Furosemide [Lasix] 40 mg PO DAILY #30 tablet Levofloxacin [Levaquin] 750 mg PO DAILY #5 tablet Home Medications: Carbidopa/Levodopa [Carbidopa-Levodopa 25-250 Tab] 1 tab PO TID 03/14/17 [ History] Glimepiride [Amaryl] 1 mg PO QAM 03/14/17 [History] Lisinopril [Zestril] 40 mg PO DAILY 03/14/17 [History] Pravastatin Sodium [Pravachol] 40 mg PO DAILY 03/14/17 [History] Tamsulosin [Flomax] 0.4 mg PO DAILY 03/14/17 [History] Vit A/Vit C/Vit E/Zinc/Copper [Preservision Areds Tablet] 2 tab PO DAILY [History] metFORMIN [Glucophage] 500 mg PO DAILY 03/14/17 [History] Aspirin Enteric Coated [Aspirin EC] 325 mg PO DAILY tablet. 03/15/17 [Rx] Dexamethasone [Decadron] 4 mg PO BID #36 tab 05/04/17 [Rx] Magic Mouthwash [Magic Mouthwash BLM] 10 ml PO QID PRN #240 ml 05/04/17 [Rx] Ondansetron HCl [Zofran] 4 mg PO TID PRN #90 tablet 05/04/17 [Rx] Docusate [Colace] 100 mg PO BID #60 capsule 06/09/17 [Rx] Omeprazole Magnesium [Prilosec Otc] 20 mg PO DAILY #30 tablet. 06/09/17 [Rx] Linagliptin [Tradjenta] 5 mg PO DAILY 06/12/17 [History] Metoprolol [Lopressor] 25 mg PO BID 06/12/17 [History] Furosemide [Lasix] 40 mg PO DAILY #30 tablet 06/14/17 [Rx] Levofloxacin [Levaquin] 750 mg PO DAILY #5 tablet 06/14/17 [Rx] Allergies/Adverse Reactions: Allergies No Known Allergies Allergy (Verified 05/19/17 11:25) Procedures/tests Complete & Pending: Procedures Performed prior 72 hours Category Date Time Status EV echocardiogram Routine Y 06/12/17 14:14 Completed Date of admission: 06/12/17 14:05 Primary care physician: Soto Naqvi MD - Patient Status Disposition: Home, Self-Care Condition: Fair Overall status at discharge: patient is progressing back to baseline - Discharge Instructions Follow Up With: Soto aNqvi MD [Primary Care Provider] - Additional Instructions: Follow-up with primary care physician within the next 7 days. Complete 5 more days of Levaquin starting 06/15/2017. Continue Lasix - Diet and Activity Activity: increase activity as tolerated Diet: diabetic diet Hospital course: Mr. Otto is a 71 year old male with a past medical history of small cell lung cancer on chemotherapy and radiation therapy, CHF with EF 35%, cardiomyopathy, COPD not oxygen dependent, coronary artery disease, diabetes not insulin-dependent, hyperlipidemia, hypertension, myocardial infarction, presented to the emergency room for shortness of breath. He also has history of CAD and had CABG 3 months ago. Patient said he started to have shortness of breath the day before his admission after having chemotherapy, patient has chronic nonproductive cough, which seems no change. Patient denies chest pain, denies of fever, denies nausea or diaphoresis. Patient has no runny nose or sore throat. In emergency room, he was treated with DuoNeb nebulizer and his shortness of breath has improved after treatment. CXR shows left lower lobe infiltrate, patient was admitted as pneumonia. The patient was started on vancomycin, Zosyn and Levaquin. Vancomycin and Zosyn were discontinued as were not suspecting healthcare associated pneumonia. Blood cultures are showing growth of Streptococcus alpha hemolyticus, likely a contaminant. Patient has improved considerably with the use of Lasix as his Chest x-ray showed superimposed left lower lobe infiltrate and left pleural effusion. He is a stable to be discharged today. Patient was given the option stay an additional day but prefers to go home at this time she is feeling much better and will be discharged on Levaquin and Lasix. Echocardiogram showed an ejection fraction of 40%, global hypokinesis, indeterminant diastolic function. - Time Spent with Patient Total time spent providing and/or coordinating discharge services: Greater than 30 minutes (40 min) - Constitutional Vitals: Temp Pulse Resp BP Pulse Ox 98 F 95 17 102/65 93 06/14/17 07:32 06/14/17 07:32 06/14/17 07:32 06/14/17 07:32 06/14/17 07:32 General appearance: Present: A&O X 3, no acute distress, answers questions appropriately - Head Head exam: Present: atraumatic, normocephalic - Eye Eye exam: Present: PERRL, conjuntiva pink, sclera anicteric Pupils: Present: PERRL - Neck Neck exam general surgery: Present: supple, trachea midline. Absent: lymphadenopathy - Respiratory Respiratory exam: Present: decreased breath sounds (Fine bibasilar crackles improved), CTAB. Absent: accessory muscle use, rales, rhonchi, wheezes Additional comments: Port-A-Cath on the right upper chest - Cardiovascular Cardiovascular exam: Present: RRR, +S1, +S2. Absent: diastolic murmur, gallop, rubs, systolic murmur - GI/Abdominal GI/Abdominal exam: Present: normal bowel sounds, soft, no peritoneal signs. Absent: distended, tenderness - Extremities Exam Extremities exam: Present: warm, radial pulses palpable and symetrical. Absent : calf tenderness, cyanotic, pedal edema - Neurological Exam Neurological exam: Present: CN II-XII intact, oriented X3, no focal deficits. Absent: pronater drift, facial droop, speech deficit - Skin Skin exam: Present: dry, intact
[2017-06-14] MEDS: Insulin LISPRO 300 UNITS/3 ML VIAL SQ SCH (08:21)
[2017-06-14] MEDS: levoFLOXacin 750 MG TABLET PO SCH ×2 (08:26)
[2017-06-14] MEDS: Aspirin Enteric Coated 325 MG Tablet PO SCH (08:26)
[2017-06-14] MEDS: Lisinopril 20 MG TABLET PO SCH (08:26)
[2017-06-14] MEDS: Carbidopa/Levodopa 25/250 TABLET PO SCH (08:27)
[2017-06-14] MEDS: Furosemide 20 MG/2 ML VIAL IVP SCH (08:27)
[2017-06-14] MEDS ORDERED: Aminoglycoside Consult 1 EACH MC ONE (10:25)
--- NOTE | 2017-06-15 12:43 | Electrocardiograph Report ---
[address] [place], [place] [address] Test Date: 2017-06-12 Pat Name: Jose R Otto Department: 103 Room: 2A24 Gender: M Miller Supervisor: JOSE MIGUEL : 1945 Requested By: Javon Avila Order Number: [id number] Reading MD: Rick Moran MD Measurements Intervals [place] Rate: 80 P: 78 WI: 180 QRS: -2 QRSD: 105 T: 139 QT: 382 QTc: 418 Interpretive Statements SINUS RHYTHM WITH FREQUENT SUPRAVENTRICULAR PREMATURE COMPLEXES LATERAL ISCHEMIA Electronically Signed On 06-15-2017 12:41:39 EDT by Rick Moran MD
--- NOTE | 2017-06-15 12:44 | Electrocardiograph Report ---
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
== END 2017-06-14 10:26 | disposition home or self-care (01) | DRG 190 ==
LOC: EMEROO 11:45 → 2ANU 11:45
PROVIDERS: ADMIT Internal Medicine; ATTEND Internal Medicine

== ENCOUNTER 2017-11-27 15:31 | Inpatient (IN) ==
[2017-11-27] MEDS ORDERED: Naloxone 0.4 MG/ML INJ IVP PRN (20:29)
[2017-11-27] MEDS ORDERED: Ondansetron 4 MG/2 ML VIAL IVP PRN (20:29)
[2017-11-27] MEDS ORDERED: Acetaminophen 325 MG TABLET PO PRN (20:29)
[2017-11-27] MEDS ORDERED: *HR* Dextrose 50 % in Water (Syg) 50 ML SYRINGE IVP PRN (20:39)
[2017-11-27] MEDS ORDERED: Dextrose Gel 15 GM/37.5 ML TUBE PO PRN ×2 (20:39)
[2017-11-27] MEDS ORDERED: D5% in Water 1,000 ML IVC PRN (20:39)
--- NOTE | 2017-11-27 20:51 | Internal Med History&Physical ---
<Gale Delgadillo - Last Filed: 11/27/17 21:25> Date of Encounter: 11/27/17 Time of Encounter: 20:00 Assessment and Plan (1) Weakness generalized Current visit: Yes Status: Acute 1 Patient states that he stood up and lower extremity too weak to hold him, He denies any LOC, however he reports to Dr Calvo he did have LOC this could be multifactorial -unsure if rt cancer mets, or if CVA, as well as he has been experiencing nausea and vomiting and is hypotensive, orthostatic or vasovgal has had a cough as well- suspicious for flu so we will swab We will consult PT and OT Please patient symptoms check MRI of Brain Check cartoid doppler check echo fall precautions (2) Elevated liver enzymes Current visit: Yes Status: Acute AST and he claimed positive bili are all elevated. Patient denies any abdominal pain there is no tenderness on palpation he has had some nausea and vomiting, concern for BP metastasis to liver we will obtain right upper quadrant ultrasound (3) Elevated troponin Current visit: Yes Status: Acute Patient denies any chest pain there no changes on EKG suspect this is demand ischemia, patient does appear to be in mild CHF we will continue trend troponins Continuous cardiac monitoring Consult cardiology as needed (4) Diabetes Current visit: No Status: Chronic 1 presently patient is nothing by mouth due to nausea and vomiting we will perform Accu-Cheks every 6 hours with sliding scale insulin We will hold metformin for now Qualifiers: Diabetes mellitus type: type 2 Diabetes mellitus complication status: without complication Diabetes mellitus fci insulin use: without fci use Qualified Code(s): E11.9 - Type 2 diabetes mellitus without complications (5) CHF (congestive heart failure) Current visit: Yes Status: Acute Patient has a history of CHF with EF of 40% echo result May 2017. Patient does have a mild elevated BNP no leg edema chest x-ray from outlying facility displays mild CHF We will repeat echocardiogram We will continue with beta blockers Patient is hypotensive at this time and we will hold Lasix as well as Farshad We will place on fluid restriction Monitor intake and output daily weights Qualifiers: Congestive heart failure type: systolic Congestive heart failure chronicity : chronic Qualified Code(s): I50.22 - Chronic systolic (congestive) heart failure (6) CAD (coronary artery disease), [place] coronary artery Current visit: No Status: Chronic 1 presently stable no chest pain we will continue with aspirin and statin we will hold lisinopril for now due to low blood pressure Nitroglycerin as needed for chest pain Qualifiers: [place] vs. transplanted heart: [place] heart Associated angina: with unstable angina Qualified Code(s): I25.110 - Atherosclerotic heart disease of [place] coronary artery with unstable angina pectoris (7) DVT prophylaxis Current visit: No Status: Chronic We will place on SCDs patient's platelets are 81 (8) Thrombocytopenia Current visit: Yes Status: Acute Patient's platelets are 81 he has been receiving radiation treatment-no bleeding. (9) Elevated lactic acid level Current visit: Yes Status: Acute Patient's lactate was 3.7 on presentation he had been experiencing nausea and vomiting as well on metformin -we will hold metformin -he was given gentle IV fluids due to his CHF and we will continue to monitor lactate (10) CKD (chronic kidney disease) stage 3, GFR 30-59 ml/min Current visit: Yes Status: Acute 1 patient's creatinine is 1.48 this appears to be around his baseline, previous creatinine in August was 1.37. We will continue to monitor Monitor intake and output daily weights Avoid nephrotoxins Maintain MAP greater than 60 Internal Medicine - H&P: HPI Chief complaint: weakness/fall Admitted From: Hospital to Hospital Transfer Plans for Post Hospital Care: Home History of present illness: Mr. Otto is a 72 year old male past medical history of small cell lung cancer hypertension hyperlipidemia COPD diabetes Parkinson's CAD, NSTEMI CABG as well as stent. Patient has been receiving radiation treatment, to brain his last treatment occurred in October 2017. Patient states that over the past he has been experiencing increasing fatigue general malaise as well as nausea / vomiting and decreased oral intake. Patient is normally independent and ambulates independently. Apparently around 3:57 AM 11/27/2017 patient was attempting to get out of bed to go to the bathroom he was unable to stand and bear weight due to he was too weak. He fell to the floor denies hitting his head or losing any consciousness. He was assisted back to bed by his son he continued to feel weak throughout the morning and was brought into [facility] for further evaluation. According to [facility] records lab work did reveal elevated lactate, troponin, liver enzymes and creatinine. Patient was hypotensive with systolics in the 80s and tachycardic. CT of head was negative for any acute intracranial abnormalities or bleeds. Chest x-ray indicative of mild CHF. Patient was transferred to [place] for further workup and evaluation. Presently the patient denies any chest pain or shortness of breath he is hemodynamically stable at this time. He denies any fevers chills chest pain shortness of breath or sick contacts I did review this case with Dr. Calvo who agrees with plan. Past Med Surg Social Fam HX - Past Medical History Medical history: cardiomyopathy, COPD, coronary artery disease, diabetes, hyperlipidemia, hypertension, myocardial infarction, other Psychiatric history: no psych history - Past Surgical History Surgical History: appendectomy, cataract, cholecystectomy, other - Social History Smoking Status: Former smoker Smokeless Tobacco Status: No Alcohol use: none Drug use: none - Family History Father Living Status: Cause of : Cancer Mother Living Status: Cause of : Cancer Internal Medicine - H&P: Meds Carbidopa/Levodopa [Carbidopa-Levodopa 25-250 Tab] 1 tab PO TID 03/14/17 [ History] Glimepiride [Amaryl] 1 mg PO QAM 03/14/17 [History] Lisinopril [Zestril] 40 mg PO DAILY 03/14/17 [History] Pravastatin Sodium [Pravachol] 40 mg PO DAILY 03/14/17 [History] Tamsulosin [Flomax] 0.4 mg PO DAILY 03/14/17 [History] Vit A/Vit C/Vit E/Zinc/Copper [Preservision Areds Tablet] 2 tab PO DAILY [History] metFORMIN [Glucophage] 500 mg PO DAILY 03/14/17 [History] Aspirin Enteric Coated [Aspirin EC] 325 mg PO DAILY tablet. 03/15/17 [Rx] Magic Mouthwash [Magic Mouthwash BLM] 10 ml PO QID PRN #240 ml 05/04/17 [Rx] Ondansetron HCl [Zofran] 4 mg PO TID PRN #90 tablet 05/04/17 [Rx] Linagliptin [Tradjenta] 5 mg PO DAILY 06/12/17 [History] MOM Conc [Milk of Magnesia Conc] 10 ml PO DAILY PRN 08/05/17 [History] Dany/Poly/Jeannine/HC [Cortisporin Opthalmic Ointment] 1 appl BOTH EYES QID #1 tube [Rx] Benzonatate [Tessalon] 100 mg PO TID PRN #60 capsule 11/03/17 [Rx] Guaifenesin [Mucinex] 600 mg PO BID #30 tab.er.12h 11/03/17 [Rx] 3 Allergy/AdvReac Type Severity Reaction Status Date / Time prochlorperazine AdvReac Hypertensio Verified 08/18/17 10:34 n All Systems PM: A 10-system review of systems was performed and is negative for pertinent findings except as documented above in the HPI. - Constitutional Constitutional: fatigue, weakness - Cardiovascular Cardiovascular ROS IM: no chest pain, no diaphoresis, no dyspnea, no lightheadedness, no palpitations, no syncope - Respiratory Respiratory: cough, no dyspnea, no wheezing, no excessive phlegm production - Gastrointestinal Gastrointestinal: nausea, vomiting, no abdominal pain, no diarrhea, no hematemesis, no hematochezia, no melena - Musculoskeletal Musculoskeletal ROS IM: no numbness, no tingling - Integumentary Integumentary IM: no rash, no unusual bruising - Neurological Neurological ROS: no confusion, no convulsions, no focal weakness, no numbness, no tingling, no tremor(s) - Hematologic/Lymphatic Hematologic/Lymphatic: no easy bruising - Constitutional Vitals: Temp Pulse Resp BP Pulse Ox 97.7 F 87 16 109/69 100 11/27/17 17:51 11/27/17 17:51 11/27/17 17:51 11/27/17 17:51 11/27/17 17:51 General appearance: Present: A&O X 3, answers questions appropriately - Head Head exam: Present: atraumatic, normocephalic - Eye Eye exam: Present: PERRL, conjuntiva pink, sclera anicteric Pupils: Present: PERRL - Neck Neck exam general surgery: Present: supple, trachea midline. Absent: lymphadenopathy - Respiratory Respiratory exam: Present: rhonchi. Absent: accessory muscle use, rales, wheezes - Cardiovascular Cardiovascular exam: Present: RRR, +S1, +S2. Absent: diastolic murmur, gallop, rubs, systolic murmur - GI/Abdominal GI/Abdominal exam: Present: normal bowel sounds, soft, no peritoneal signs. Absent: distended, tenderness - Extremities Exam Extremities exam: Present: warm, radial pulses palpable and symmetrical. Absent : calf tenderness, cyanotic, pedal edema - Neurological Exam Neurological exam: Present: CN II-XII intact, oriented X3, no focal deficits. Absent: pronater drift, facial droop, speech deficit - Skin Skin exam: Present: dry, intact Internal Med - H&P Results - Labs Labs: Lab work per Claire Marquez [facility] pH 7.45 PCO2 26 PO2 85 bicarbonate 18.1 and base excess -4.5 O2 sat 97 CBC WBC 9.9 hemoglobin 13.7 hematocrit 39.7 platelets 81 Chemistry sodium 143 potassium 3.6 chloride 108 bicarbonate 20 B1 27 creatinine 1.48 glucose 222 Mag 1.6 PT 14.7 INR 1.3 APTT 27.2 troponin 0.080 AST 343 a LT207 alkaline phosphatase 272 total bili 3.1 Lactate 3.7 - EKG Data EKG shows normal: sinus rhythm - EKG Data Prior EKG available for review: no <CalvoEvan - Last Filed: 11/28/17 00:42> Date of Encounter: 11/28/17 Internal Medicine - H&P: HPI History of present illness: Mr. Otto is a 72 year old male All Systems PM: A 10-system review of systems was performed and is negative for pertinent findings except as documented above in the HPI. - Constitutional Vitals: Temp Pulse Resp BP Pulse Ox 98.9 F 91 15 111/75 100 11/28/17 00:23 11/28/17 00:23 11/28/17 00:23 11/28/17 00:23 11/28/17 00:23 Internal Med - H&P Results - Labs Labs: Cardiac Enzymes 11/27/17 Range/Units 20:07 Troponin I 0.07 H* (< 0.04) ng/mL - Impressions ITS Impressions Abdomen Ultrasound 11/27/17 23:19 IMPRESSION: No acute findings. Status post cholecystectomy. D/ / Blu Clemons MD / Blu Clemons MD Interpreting Provider: Blu Clemons MD - Attending Attestation I have seen and examined Pt independently. I have discussed with TOOL PUSHER Ms Delgadillo regarding the management plan, agree with the documentation.
[2017-11-27] MEDS: Insulin LISPRO 300 UNITS/3 ML VIAL SQ SCH (22:48)
[2017-11-28] MEDS ORDERED: Insulin LISPRO 300 UNITS/3 ML VIAL SQ SCH
[2017-11-28 02:37] LABS: Basophils % 0.2 %; Red Cell Distribution Width 13.9 % (11.5-14.5)
[2017-11-28 02:39] LABS: Eosinophils % 0.6 %; Hematocrit 34.7 % (37.5-50.1); Hemoglobin 11.5 g/dL (12.9-16.9); Immature Granulocytes % 0.5 % (0-4); Immature Platelets 3.6 % (1.1-6.1); Lymphocytes # 0.4 K/mcL (0.6-4.6); Lymphocytes % 6.5 %; Mean Corpuscular HGB Conc 33.1 g/dL (31.6-35.5); Mean Corpuscular Hemoglobin 31.6 pg (28.0-33.3); Mean Corpuscular Volume 95.3 fL (83.0-100.0); Mean Platelet Volume 10.9 fL (9.4-12.4); Monocytes # 0.5 K/mcL (0.0-1.3); Monocytes % 7.5 %; Red Blood Count 3.64 M/mcL (4.19-5.50); Segmented Neutrophils % 84.7 %
[2017-11-28 02:58] LABS: BUN/Creatinine Ratio 22 (6-26); Blood Urea Nitrogen 24 mg/dL (8-23); Calcium 8.8 mg/dL (8.6-10.3); Carbon Dioxide 19 mEq/L (23-29); Chloride 113 mEq/L (98-107); Glucose 113 mg/dL (70-105); Magnesium 1.8 mg/dL (1.6-2.6); Osmolality,Calculated 295 (280-300); Potassium 3.6 mEq/L (3.5-5.1); Sodium 140 mEq/L (136-145); eGFR For African Americans > 60 (> 60); eGFR For Non-African Americans > 60 (> 60)
[2017-11-28 03:46] LABS: Neutrophils # 5.3 K/mcL (1.6-8.9); Platelet Count 68 K/mcL (140-400)
[2017-11-28 03:53] LABS: Platelet Estimate Decreased (Normal)
[2017-11-28] MEDS: Insulin LISPRO 300 UNITS/3 ML VIAL SQ SCH ×4 (08:13→20:50)
[2017-11-28 10:37] LABS: Albumin 3.2 g/dL (3.5-5.7); Bilirubin,Direct 2.1 mg/dL (0.0-0.2); Bilirubin,Indirect 1.2 mg/dL (0.0-1.2); Bilirubin,Total 3.3 mg/dL (0.3-1.0); Globulin 3.2 g/dL (2.4-3.5); Total Protein 6.4 g/dL (6.4-8.9)
[2017-11-28 13:27] LABS: Adenovirus Not Detected (Not Detect); Bordetella Pertussis Not Detected (Not Detect); Chlamydophila pneumoniae Not Detected (Not Detect); Coronavirus 229E Not Detected (Not Detect); Coronavirus HKU1 Not Detected (Not Detect); Coronavirus NL63 Not Detected (Not Detect); Coronavirus OC43 Not Detected (Not Detect); Human Metapneumovirus Not Detected (Not Detect); Human Rhinovirus/Enterovirus Not Detected (Not Detect); Influenza A Subtype 2009 H1 Not Detected (Not Detect); Influenza A Untypeable Not Detected (Not Detect); Influenza B Not Detected (Not Detect); Mycoplasma pneumoniae Not Detected (Not Detect); Parainfluenza Virus 1 Not Detected (Not Detect); Parainfluenza Virus 2 Not Detected (Not Detect); Parainfluenza Virus 3 Not Detected (Not Detect); Parainfluenza Virus 4 Not Detected (Not Detect); Respiratory Syncytial Virus Not Detected (Not Detect)
--- NOTE | 2017-11-28 14:46 | Internal Med Progress Note ---
Date of Encounter: 11/28/17 Time of Encounter: 14:42 - Assessment and plan (1) Weakness generalized Current Visit: Yes Status: Acute Assessment and plan: Multifactorial As per pt has been unable to keep much food down due to persistent nausea and vomiting after any PO intake Reported to be hypotensive at home but has continued to take antihypertensives Concern for drug induced hypotension contributing to generalized weakness and falls. Will hold Lisinopril at this time Hold Metoprolol for SBP<100 Noted to have severe Left ICA stenosis, vascular surgery to evaluate will administer Zofran prn nausea unable to start reglan due to patient being on Carbidopa/Levodopa Will obtain CT chest/abd/pelvis to evaluate for metastatic disease as reports that the patient has been loosing weight for the last few months. PT/OT evaluation (2) Carotid stenosis Current Visit: Yes Status: Acute Assessment and plan: Carotid doppler reported critical Left ICA stenosis 80-99% Vascular surgery consultation requested Qualifiers: Laterality: left Qualified Code(s): I65.22 - Occlusion and stenosis of left carotid artery (3) Lung cancer Current Visit: No Status: Chronic Assessment and plan: 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 Qualifiers: Laterality: unspecified laterality Lung location: unspecified part of lung Qualified Code(s): C34.90 - Malignant neoplasm of unspecified part of unspecified bronchus or lung (4) Diabetes Current Visit: No Status: Chronic Assessment and plan: hold oral antihyperglycemic agents sliding scale insulin as needed monitor FS and BG ADA diet Qualifiers: Diabetes mellitus type: type 2 Diabetes mellitus complication status: without complication 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: without computer networking instructor adjunct use Qualified Code(s): E11.9 - Type 2 diabetes mellitus without complications (5) DVT prophylaxis Current Visit: No Status: Chronic Assessment and plan: SCD (6) Elevated liver enzymes Current Visit: Yes Status: Acute Assessment and plan: will obtain CT abd/pelvis to rule out metastatic disease will closely monitor LFTs (7) Essential hypertension Current Visit: No Status: Chronic Assessment and plan: NOted to be hypotensive will hold Lisinopril at this time hold Metoprolol for SBP<100 (8) Hyperlipidemia Current Visit: No Status: Chronic Qualifiers: Hyperlipidemia type: unspecified Qualified Code(s): E78.5 - Hyperlipidemia , unspecified (9) Parkinson disease Current Visit: No Status: Chronic Assessment and plan: continue home meds (10) Thrombocytopenia Current Visit: Yes Status: Chronic (11) CAD (coronary artery disease), [place] coronary artery Current Visit: No Status: Chronic Assessment and plan: No signs of angina present at this time continue home dose of ASA, BB, Statin hold BB for SBP<100 Qualifiers: [place] vs. transplanted heart: [place] heart Associated angina: with unstable angina Qualified Code(s): I25.110 - Atherosclerotic heart disease of [place] coronary artery with unstable angina pectoris - Subjective Interval history: Pt seen and examined with present at beside. Pt's mental status back to baseline and is AAO x 3. Pt has baseline Parkinson's disease History of small cell lung cancer, finished chemotherapy and radiation a few months ago. As per , pt has been having worsening of generalized weakness and confusion. She states he is not able to tolerate PO intake and gets nauseous with vomiting shortly after he eats. Noted to have labile BP however noted to be on Metoprolol, Lisinopril at home. I am concerned that pt's weakness and falls could be also secondary to drug induced hypotension. His carotid doppler reported Left ICA has a critical stenosis 80-99%. Dr. Wolff (Vascular surgery consulted) - Constitutional Vitals: Temp Pulse Resp BP Pulse Ox 98 F 86 16 105/77 94 11/28/17 12:00 11/28/17 12:00 11/28/17 12:00 11/28/17 12:00 11/28/17 12:00 General appearance: Present: A&O X 3, no acute distress, answers questions appropriately - Head Head exam: Present: atraumatic, normocephalic - Eye Eye exam: Present: conjuntiva pink, sclera anicteric - Respiratory Respiratory exam: Absent: accessory muscle use, chest wall tenderness (equal air entry bilaterally ), respiratory distress, wheezes - Cardiovascular Cardiovascular exam: Present: RRR, +S1, +S2. Absent: diastolic murmur, gallop, rubs, systolic murmur - GI/Abdominal GI/Abdominal exam: Present: normal bowel sounds, soft, no peritoneal signs. Absent: distended, tenderness - Extremities Exam Extremities exam: Present: warm, radial pulses palpable and symmetrical. Absent : calf tenderness, cyanotic, pedal edema - Neurological Exam Neurological exam: Present: alert, oriented X3 - Psychiatric Psychiatric exam: Present: flat affect Internal Medicine: Result - Labs CBC & Chem 7: 11/28/17 02:29 11/28/17 02:29 Labs: Short CBC 11/28/17 Range/Units 02:29 WBC 6.2 (4.3-11.1) K/mcL Hgb 11.5 L (12.9-16.9) g/dL Hct 34.7 L (37.5-50.1) % Plt Count 68 L (140-400) K/mcL Neutrophils # 5.3 (1.6-8.9) K/mcL BMP 11/28/17 02:29 Sodium 140 Potassium 3.6 Chloride 113 H Carbon Dioxide 19 L BUN 24 H Creatinine 1.10 Glucose 113 H Calcium 8.8 Cardiac Enzymes 11/27/17 11/28/17 11/28/17 Range/Units 20:07 02:29 10:09 Troponin I 0.07 H* 0.06 H* 0.05 H* (< 0.04) ng/mL Liver Function 11/28/17 Range/Units 10:09 Total Bilirubin 3.3 H (0.3-1.0) mg/dL Direct Bilirubin 2.1 H (0.0-0.2) mg/dL AST 92 H (13-39) Units/L ALT 164 H (7-52) Units/L Alkaline Phosphatase 187 H (34-104) Units/L Albumin 3.2 L (3.5-5.7) g/dL - Impressions Impressions Brain MRI 11/27/17 21:28 IMPRESSION: No acute abnormality. D/ / Rajesh Celis MD / Rajesh Celis MD Interpreting Provider: Rajesh Celis MD Abdomen Ultrasound 11/27/17 23:19 IMPRESSION: No acute findings. Status post cholecystectomy. D/ / Blu Clemons MD / Blu Clemons MD Interpreting Provider: Blu Clemons MD Chest X-Ray 11/28/17 08:20 IMPRESSION: Chronic mild interstitial and bilateral perihilar opacities, stable from chest CT on 09/28/2017. No definite acute abnormality. D/ : / 11/28/2017 09:02:15 Supa Rojo MD / anuel Interpreting Provider: Supa Rojo MD Consult Discharge Plan - Plan Referrals: Soto Naqvi MD [Primary Care Provider] -
[2017-11-28] MEDS ORDERED: Ondansetron 4 MG/2 ML VIAL IVP PRN (14:50)
[2017-11-28] MEDS ORDERED: 0.9 % Sodium Chloride 1,000 ML IVC SCH (15:00)
[2017-11-28] MEDS: Carbidopa/Levodopa 25/250 TABLET PO SCH ×2 (15:29→20:50)
[2017-11-28] MEDS: Aspirin Enteric Coated 325 MG Tablet PO SCH (15:29)
--- NOTE | 2017-11-28 15:51 | Vascular/Endovasc Consult Note ---
Date of Encounter: 11/28/17 Time of Encounter: 15:46 Assessment and Plan (1) Weakness generalized Current Visit: Yes Status: Chronic Patient has generalized weakness thought secondary to multiple ongoing chronic medical problems and in particular his hypertension and Parkinson's disease. (2) Carotid stenosis Current Visit: Yes Status: Acute I have reviewed the duplex images and they indicate a 80-99% stenosis of the left internal carotid artery. There is no significant stenosis in the right carotid system area I have reviewed in great detail with the patient and his family the natural history of carotid artery disease. We discussed potential risks and benefits of medical versus surgical treatment for the left carotid stenosis. It was clearly explained to the patient and his family the need for further consultation before any decision be made regarding carotid surgery. I expressed my concern about further contrast load as he would require a carotid artery angiogram to clarify his carotid anatomy. In addition he would need input from oncology and radiation therapy and his primary care physician as to his suitability for general anesthesia and carotid endarterectomy. At this point I do not believe the left carotid stenosis is symptomatic and did not cause his fall at night leading to his admission at this time. Therefore I reassured the family there is no emergency to proceed and that further workup which has already been initiated by Dr. Kearney to evaluate the patient's oncologic status needs to be complete. The other physicians also have to render their consultation as to his suitability for the possible general anesthetic and carotid endarterectomy. Qualifiers: Laterality: left Qualified Code(s): I65.22 - Occlusion and stenosis of left carotid artery (3) Lung cancer Current Visit: Yes Status: Chronic Patient has a history of small cell cancer and is status post chemotherapy and radiation therapy. The patient has had prophylactic brain radiation which completed approximately 5 weeks ago. Qualifiers: Laterality: unspecified laterality Lung location: unspecified part of lung Qualified Code(s): C34.90 - Malignant neoplasm of unspecified part of unspecified bronchus or lung (4) COPD (chronic obstructive pulmonary disease) Current Visit: No Status: Chronic The patient has chronic COPD. This was discussed as it relates to his pulmonary care and potential perioperative and anesthetic complications in light of his other multiple ongoing diagnoses. Qualifiers: COPD type: unspecified COPD Qualified Code(s): J44.9 - Chronic obstructive pulmonary disease, unspecified (5) Parkinson disease Current Visit: Yes Status: Chronic Patient has significant Parkinson's disease. This is under treatment and evaluation by Dr. Mitchell. - History of Present Illness Consult date: 11/28/17 Requesting physician: Brittany Kearney Consult reason: Carotid stenosis Chief complaint: Fall History of present illness: Mr. Otto is a 72 year old male Who was admitted to [place] on transfer from [facility]. The patient had gotten up in the night and had fallen. His son who wakes up early for work her the noise and responded to the patient. The patient's and the son were able to get the patient back in the bed but he was very weak. He did not appear to be able to support himself on his lower extremities. He also was confused. Therefore they notified the squad and the patient was taken to [facility]. The patient family requested [place] due to travel restrictions the patient needed to go to [facility] and then was eventually transferred to [place]. His physicians are located here and [place]. He has no history of previous cerebrovascular disease. He has no history of stroke or TIAs. His medical history however is rather complicated. The patient was identified as being hypotensive and was on a number of antihypertensive drugs. In addition he has a history of small cell cancer and had undergone chemotherapy in the second half of 2016. He then went on to have thoracic radiation and then brain irradiation prophylactically. There were no findings according to the family of tumor in the brain prior to the radiation therapy. The small cell cancer was found incidentally according to the family when the patient underwent open heart bypass grafting at [facility] in February 2017. According to the family when the cardiac surgeons open the chest they encountered a mass which was biopsy and was revealed to be small cell cancer. This then led to oncologic referral and chemotherapy and radiation therapy(Dr. Obrien and Dr. Kumar). The patient does have a history of lower extremity vascular disease. The patient has vascular risk factors of diabetes, hypertension, hypercholesterolemia, past history of tobacco use, and history of coronary artery disease. In addition to these issues the patient has a history of Parkinson's disease. He is under medical treatment for this and is seen Dr. Mitchell in the neurology Department. At the time of my interview the patient has no new active neurologic symptoms. Past Med Surg Social Fam HX - Past Medical History Medical history: cardiomyopathy, COPD, coronary artery disease, diabetes, hyperlipidemia, hypertension, myocardial infarction, other Psychiatric history: no psych history - Past Surgical History Surgical History: appendectomy, cataract, cholecystectomy, [facility] other - Social History Smoking Status: Former smoker Smokeless Tobacco Status: No Alcohol use: none Drug use: none - Family History Father Living Status: Cause of : Cancer Mother Living Status: Cause of : Cancer Medications and Allergies Carbidopa/Levodopa [Carbidopa-Levodopa 25-250 Tab] 1 tab PO TID 03/14/17 [ History] Lisinopril [Zestril] 20 mg PO DAILY 03/14/17 [History] Pravastatin Sodium [Pravachol] 40 mg PO DAILY 03/14/17 [History] Tamsulosin [Flomax] 0.4 mg PO DAILY 03/14/17 [History] Vit A/Vit C/Vit E/Zinc/Copper [Preservision Areds Tablet] 2 tab PO DAILY [History] metFORMIN [Glucophage] 500 mg PO DAILY 03/14/17 [History] Aspirin Enteric Coated [Aspirin EC] 325 mg PO DAILY tablet. 03/15/17 [Rx] Magic Mouthwash [Magic Mouthwash BLM] 10 ml PO QID PRN #240 ml 05/04/17 [Rx] Linagliptin [Tradjenta] 5 mg PO DAILY 06/12/17 [History] Benzonatate [Tessalon] 100 mg PO TID PRN #60 capsule 11/03/17 [Rx] Guaifenesin [Mucinex] 600 mg PO BID #30 tab.er.12h 11/03/17 [Rx] Metoprolol [Lopressor] 25 mg PO BID 11/28/17 [History] 3 Allergy/AdvReac Type Severity Reaction Status Date / Time atorvastatin [From Lipitor] AdvReac Muscle Pain Verified 11/28/17 13:00 prochlorperazine AdvReac Hypertensio Verified 08/18/17 10:34 n All Systems Review: A 10-system review of systems was performed and is negative for pertinent findings except as documented above in the HPI. Exam Vital Signs, Last 4 Hours Temp Pulse Resp BP Pulse Ox 11/28/17 12:00 98 F 86 16 105/77 94 General: Present: Conversant, No Apparent Distress HEENT: Present: Atraumatic, Normocephaly, Trachea midline Neck: Absent: JVD, Lymphadenopathy, Left Carotid bruit, Right Carotid bruit, Midline deformity, Tracheal deviation Cardiac: Present: Reg Rate and Rhythm, Normal S1 and S2, No Murmur Lungs: Present: Normal Breath Sounds, No Wheeze, Rales, Rhonchi Neuro: Present: Alert and responsive, Cranial nerves grossly intact, Other ( Patient has resting tremors of both upper extremities. Patient has generalized upper and lower extremity muscular weakness. Patient is able to move extremities against gravity and against mild resistance. The patient was lying in bed and so his station and gait was not examined.) Abdomen: Present: Soft, Non-tender Vascular: Present: Bruit (No carotid bruits are present), Pulse, diminished ( Diminished upper extremity pulses), Pulse, normal (Normal carotid artery pulses) Consult Discharge Plan - Plan Referrals: Soto Naqvi MD [Primary Care Provider] -
[2017-11-28] MEDS ORDERED: Metoclopramide 10 MG/10 ML UD.LIQ PO SCH (16:30)
[2017-11-28] MEDS: Benzonatate 100 MG CAPSULE PO PRN (17:15)
[2017-11-28 18:55] LABS: Clarity,Urine Cloudy (Clear); Color,Urine Orange (Yellow)
[2017-11-28 19:08] LABS: Mucus,Urine Few (Few); Squamous Epithelial Cell,Urine Few per lpf (None-Few)
[2017-11-28 19:09] LABS: RBC,Urine 30-50 per hpf (0-3)
[2017-11-28 19:10] LABS: Amorphous Sediment,Urine Few (Few)
[2017-11-29] MEDS: Benzonatate 100 MG CAPSULE PO PRN (00:01)
[2017-11-29] MEDS: Chloraseptic Spray 177 ML BOTTLE MM PRN ×2 (00:01→21:08)
[2017-11-29 05:40] LABS: Basophils % 0.2 %; Nucleated Red Blood Cells 0.4 /100 WBC (0)
[2017-11-29 05:42] LABS: Eosinophils # 0.1 K/mcL (0.0-0.6); Hematocrit 36.4 % (37.5-50.1); Hemoglobin 11.8 g/dL (12.9-16.9); Immature Granulocytes % 0.6 % (0-4); Immature Platelets 5.5 % (1.1-6.1); Lymphocytes # 0.5 K/mcL (0.6-4.6); Lymphocytes % 10.2 %; Mean Corpuscular HGB Conc 32.4 g/dL (31.6-35.5); Mean Corpuscular Hemoglobin 31.1 pg (28.0-33.3); Mean Platelet Volume 11.8 fL (9.4-12.4); Monocytes # 0.5 K/mcL (0.0-1.3); Red Blood Count 3.79 M/mcL (4.19-5.50)
[2017-11-29 05:44] LABS: BUN/Creatinine Ratio 21 (6-26); Blood Urea Nitrogen 22 mg/dL (8-23); Calcium 8.7 mg/dL (8.6-10.3); Carbon Dioxide 15 mEq/L (23-29); Chloride 110 mEq/L (98-107); Glucose 126 mg/dL (70-105); Magnesium 1.8 mg/dL (1.6-2.6); Osmolality,Calculated 285 (280-300); Phosphorous 2.5 mg/dL (2.7-4.5); Potassium 3.5 mEq/L (3.5-5.1); Sodium 135 mEq/L (136-145); eGFR For African Americans > 60 (> 60); eGFR For Non-African Americans > 60 (> 60)
[2017-11-29 05:48] LABS: Neutrophils # 3.7 K/mcL (1.6-8.9); Platelet Count 66 K/mcL (140-400)
[2017-11-29] MEDS: Insulin LISPRO 300 UNITS/3 ML VIAL SQ SCH ×3 (09:48→21:12)
[2017-11-29] MEDS: Carbidopa/Levodopa 25/250 TABLET PO SCH ×3 (09:54→21:09)
[2017-11-29] MEDS: Furosemide 40 MG TABLET PO SCH ×2 (09:54→17:38)
[2017-11-29] MEDS: Aspirin Enteric Coated 325 MG Tablet PO SCH (09:54)
--- NOTE | 2017-11-29 15:11 | Internal Med Progress Note ---
Date of Encounter: 11/29/17 Time of Encounter: 14:05 - Assessment and plan (1) Weakness generalized Current Visit: Yes Status: Chronic Assessment and plan: Multifactorial As per pt has been unable to keep much food down due to persistent nausea and vomiting after any PO intake Reported to be hypotensive at home but has continued to take antihypertensives Concern for drug induced hypotension contributing to generalized weakness and falls. Will hold Lisinopril at this time Hold Metoprolol for SBP<100 Noted to have severe Left ICA stenosis, vascular surgery evaluation appreciated will administer Zofran prn nausea, added erythromycin as motility agent unable to start reglan due to patient being on Carbidopa/Levodopa CT chest/abd/pelvis: negative for metastatic disease PT/OT evaluation (2) Carotid stenosis Current Visit: Yes Status: Acute Assessment and plan: Carotid doppler reported critical Left ICA stenosis 80-99% Vascular surgery consultation appreciated Qualifiers: Laterality: left Qualified Code(s): I65.22 - Occlusion and stenosis of left carotid artery (3) Lung cancer Current Visit: No Status: Chronic Assessment and plan: 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 Qualifiers: Laterality: unspecified laterality Lung location: unspecified part of lung Qualified Code(s): C34.90 - Malignant neoplasm of unspecified part of unspecified bronchus or lung (4) Diabetes Current Visit: No Status: Chronic Assessment and plan: hold oral antihyperglycemic agents sliding scale insulin as needed monitor FS and BG ADA diet Qualifiers: Diabetes mellitus type: type 2 Diabetes mellitus complication status: without complication Diabetes mellitus intermediate teacher insulin use: without custodial use Qualified Code(s): E11.9 - Type 2 diabetes mellitus without complications (5) DVT prophylaxis Current Visit: No Status: Chronic Assessment and plan: SCD (6) Elevated liver enzymes Current Visit: Yes Status: Acute Assessment and plan: will obtain hepatitis serologies (7) Essential hypertension Current Visit: No Status: Chronic Assessment and plan: NOted to be hypotensive will hold Lisinopril at this time hold Metoprolol for SBP<100 (8) Hyperlipidemia Current Visit: No Status: Chronic Qualifiers: Hyperlipidemia type: unspecified Qualified Code(s): E78.5 - Hyperlipidemia , unspecified (9) Parkinson disease Current Visit: Yes Status: Chronic Assessment and plan: continue home meds (10) Thrombocytopenia Current Visit: Yes Status: Chronic (11) CAD (coronary artery disease), [place] coronary artery Current Visit: No Status: Chronic Assessment and plan: No signs of angina present at this time continue home dose of ASA, BB, Statin hold BB for SBP<100 Qualifiers: [place] vs. transplanted heart: [place] heart Associated angina: with unstable angina Qualified Code(s): I25.110 - Atherosclerotic heart disease of [place] coronary artery with unstable angina pectoris (12) CHF (congestive heart failure) Current Visit: Yes Status: Acute Assessment and plan: noted to have pulm edema on CT chest noted to have bibasilar rales will start lasix 40mg PO BID Qualifiers: Congestive heart failure type: systolic Congestive heart failure chronicity : chronic Qualified Code(s): I50.22 - Chronic systolic (congestive) heart failure (13) Metabolic acidosis Current Visit: Yes Status: Acute Assessment and plan: likely secondary to vomiting started sodium bicarb PO will closely monitor - Subjective Interval history: Pt seen and examined with present at beside. Pt's mental status back to baseline and is AAO x 3. Pt has baseline Parkinson's disease History of small cell lung cancer, finished chemotherapy and radiation a few months ago. Pt noted to have vomiting shortly after eating every meal. reports of feeling weak and unable to keep any food down I spoke with the oncall oncologist in regards to the persistent n/v after completing chemo/radiation. Will do a trial of erythromcyin to stimulate motility and continue zofran prn. will consider GI evaluation if symptoms persists. - Constitutional Vitals: Temp Pulse Resp BP Pulse Ox 97.9 F 86 16 111/77 92 11/29/17 11:56 11/29/17 11:56 11/29/17 11:56 11/29/17 11:56 11/29/17 11:56 General appearance: Present: A&O X 3 (masked facies ), no acute distress, answers questions appropriately - Head Head exam: Present: atraumatic, normocephalic - Eye Eye exam: Present: conjuntiva pink, sclera anicteric - Respiratory Respiratory exam: Present: rales (bibasilar rales). Absent: respiratory distress, wheezes - Cardiovascular Cardiovascular exam: Present: RRR, +S1, +S2. Absent: diastolic murmur, gallop, rubs, systolic murmur - GI/Abdominal GI/Abdominal exam: Present: normal bowel sounds, soft, no peritoneal signs. Absent: distended, tenderness - Extremities Exam Extremities exam: Present: warm, radial pulses palpable and symmetrical. Absent : calf tenderness Internal Medicine: Result - Labs CBC & Chem 7: 11/29/17 04:41 11/29/17 04:41 Labs: Short CBC 11/29/17 Range/Units 04:41 WBC 4.8 (4.3-11.1) K/mcL Hgb 11.8 L (12.9-16.9) g/dL Hct 36.4 L (37.5-50.1) % Plt Count 66 L (140-400) K/mcL Neutrophils # 3.7 (1.6-8.9) K/mcL BMP 11/29/17 04:41 Sodium 135 L Potassium 3.5 Chloride 110 H Carbon Dioxide 15 L BUN 22 Creatinine 1.05 Glucose 126 H Calcium 8.7 Urine 11/28/17 Range/Units 18:30 Urine Color [place] A (Yellow) Urine Clarity Cloudy A (Clear) Urine pH TNP Ur Specific [place] TNP Urine Protein TNP Urine Glucose (UA) TNP - Impressions Impressions Abdomen/Pelvis CT 11/28/17 16:00 IMPRESSION: Small effusions and interstitial edema or interstitial lung disease. Infrarenal abdominal aortic aneurysm. Otherwise unremarkable exam. D/ / Wicho Jacobo MD / Wicho Jacobo MD Interpreting Provider: Wicho Jacobo MD Chest CT 11/28/17 16:00 IMPRESSION: Small bibasilar effusions and ground-glass opacities increased. Increased pulmonary edema. Centrilobular and paraseptal emphysema. Coronary artery disease is status post CABG. D/ / Wicho Jacobo MD / Wicho Jacobo MD Interpreting Provider: Wicho Jacobo MD Consult Discharge Plan - Plan Referrals: Soto Naqvi MD [Primary Care Provider] -
--- NOTE | 2017-11-29 16:25 | Oncology Inp Consult Note ---
Date of Encounter: 11/30/17 Time of Encounter: 16:22 Assessment and Plan (1) Nausea & vomiting Status: Acute Assessment and plan: Unclear etiology. Could be due to hepatic pathology although U/S is negative and CT is only suggestive of pathology. could be sequelae of radiation. He could have adrenal insufficiency also. UTI could also be contributing factor. Culture is pending. Will start keflex to sede if that improves his situation at all. It could be from [facility] strict[facility] Endoscopic evaluation could be helpful. Erythromycin may be a good start to see if that helps his food consumption. Qualifiers: Vomiting type: unspecified Vomiting Intractability: non-intractable Qualified Code(s): R11.2 - Nausea with vomiting, unspecified (2) UTI (urinary tract infection) Status: Acute Assessment and plan: will plan to start keflex today and see if that improves the patient condition at all. Qualifiers: Qualified Code(s): N30.00 - Acute cystitis without hematuria (3) Lung cancer Status: Chronic Assessment and plan: No e/o cancer at this time. He has had a CR after treatment with chemoradiation for his sclc. Qualifiers: Laterality: unspecified laterality Lung location: unspecified part of lung Qualified Code(s): C34.90 - Malignant neoplasm of unspecified part of unspecified bronchus or lung (4) Elevated liver enzymes Status: Acute (5) COPD (chronic obstructive pulmonary disease) Status: Chronic Assessment and plan: U/S negative,. CT shows some mild noduilarity. Recheck labs in the morning. If persistently elevated may need MRI abdomnen/pelvis. Could be shock liver. Will monitor. Qualifiers: COPD type: unspecified COPD Qualified Code(s): J44.9 - Chronic obstructive pulmonary disease, unspecified (6) Hypotension Status: Acute Assessment and plan: Could have adrenal or pituitary insufficiency. will check am cortisol level. Qualifiers: Qualified Code(s): I95.9 - Hypotension, unspecified - Data of Consult Patient: known to practice within the last 3 years Requesting Physician: Brittany Kearney MD Primary Care Provider: Soto Naqvi MD - Consult Narrative Reason for consult: N/V with recent treatment for SCLC History of present illness: Mr. Otto is a 72 year old male who has recently diagnosed limited stage small cell lung cancer. He was treated with chemoradiation with carboplatin and etoposide. He was then treated with PCI which concluded about a few weeks ago in October 2017. He was in [facility] until couple of days ago when he fell coming out of the bedroom. HGe was very weak and could hardly get up. He did have episode of LOC. He is unsure as to the length of time. He became more aware after arriving at the hospital. No fevers. He did not have any major symptoms preceding this event. He has been having some N/V x 3-4 weeks. He does not vomit every time he eats. Nausea is not constant. He does not feel like the food gets stuck. He has lost about 12 pounds in the past 3-4 weeks. These symptoms started after the brain radiation. No vomiting with liquids. Soups and borth are able to be swallowed without too much difficulty. Boost did make him vomit today. Previously=, boost didnt bother him before. No dysuria. Past Med Surg Social Fam HX - Past Medical History Medical history: cardiomyopathy, COPD, coronary artery disease, diabetes, hyperlipidemia, hypertension, myocardial infarction, other Psychiatric history: no psych history - Past Surgical History Surgical History: appendectomy, cataract, cholecyst[facility], [facility] other - Social History Smoking Status: Former smoker Smokeless Tobacco Status: No Alcohol use: none Drug use: none - Family History Father Living Status: Cause of : Cancer Mother Living Status: Cause of : Cancer Medications and Allergies Carbidopa/Levodopa [Carbidopa-Levodopa 25-250 Tab] 1 tab PO TID 03/14/17 [ History] Lisinopril [Zestril] 20 mg PO DAILY 03/14/17 [History] Pravastatin Sodium [Pravachol] 40 mg PO DAILY 03/14/17 [History] Tamsulosin [Flomax] 0.4 mg PO DAILY 03/14/17 [History] Vit A/Vit C/Vit E/Zinc/Copper [Preservision Areds Tablet] 2 tab PO DAILY [History] metFORMIN [Glucophage] 500 mg PO DAILY 03/14/17 [History] Aspirin Enteric Coated [Aspirin EC] 325 mg PO DAILY tablet. 03/15/17 [Rx] Magic Mouthwash [Magic Mouthwash BLM] 10 ml PO QID PRN #240 ml 05/04/17 [Rx] Linagliptin [Tradjenta] 5 mg PO DAILY 06/12/17 [History] Benzonatate [Tessalon] 100 mg PO TID PRN #60 capsule 11/03/17 [Rx] Guaifenesin [Mucinex] 600 mg PO BID #30 tab.er.12h 11/03/17 [Rx] Metoprolol [Lopressor] 25 mg PO BID 11/28/17 [History] 3 Allergy/AdvReac Type Severity Reaction Status Date / Time atorvastatin [From Lipitor] AdvReac Muscle Pain Verified 11/28/17 13:00 prochlorperazine AdvReac Hypertensio Verified 08/18/17 10:34 n Constitutional: Present: fatigue, weight loss. Absent: anorexia Nose, mouth and throat: Absent: dizziness Cardiovascular: Present: syncope. Absent: chest pain Respiratory: Absent: dyspnea Additional comments: however the oxygen requirement is new for him. Gastrointestinal: Present: as per HPI Genitourinary: as per HPI Musculoskeletal: Absent: muscle cramps, myalgias Neurological: Present: weakness. Absent: numbness Hematologic/Lymphatic: Present: easy bruising Oncology - Exam - Constitutional Vitals: Temp Pulse Resp BP Pulse Ox 97.9 F 86 16 111/77 92 11/29/17 11:56 11/29/17 11:56 11/29/17 11:56 11/29/17 11:56 11/29/17 11:56 General appearance: average body habitus, cooperative, no febrile - Head Head exam: Present: atraumatic, normal inspection - Eye Eye exam: Present: EOMI - ENT ENT exam: Present: mucous membranes dry - Respiratory Additional comments: with nasal cannula - Cardiovascular Cardiovascular exam: Present: RRR - GI/Abdominal GI/Abdominal exam: Present: soft - Neurological Exam Neurological exam: Present: alert - Skin Additional comments: bruises Oncology - Results Labs: Short CBC 11/29/17 Range/Units 04:41 WBC 4.8 (4.3-11.1) K/mcL Hgb 11.8 L (12.9-16.9) g/dL Hct 36.4 L (37.5-50.1) % Plt Count 66 L (140-400) K/mcL Neutrophils # 3.7 (1.6-8.9) K/mcL BMP 11/29/17 04:41 Sodium 135 L Potassium 3.5 Chloride 110 H Carbon Dioxide 15 L BUN 22 Creatinine 1.05 Glucose 126 H Calcium 8.7 Urine 11/28/17 Range/Units 18:30 Urine Color [place] A (Yellow) Urine Clarity Cloudy A (Clear) Urine pH TNP Ur Specific [place] TNP Urine Protein TNP Urine Glucose (UA) TNP Consult Discharge Plan - Plan Referrals: Soto Naqvi MD [Primary Care Provider] -
[2017-11-29] MEDS: cephALEXin 500 MG CAPSULE PO SCH (21:09)
[2017-11-30 05:31] LABS: Albumin 3.2 g/dL (3.5-5.7); Bilirubin,Direct 0.6 mg/dL (0.0-0.2); Bilirubin,Indirect 0.7 mg/dL (0.0-1.2); Bilirubin,Total 1.3 mg/dL (0.3-1.0); Globulin 3.1 g/dL (2.4-3.5); Total Protein 6.3 g/dL (6.4-8.9)
[2017-11-30 05:32] LABS: Alanine Aminotransferase 22 Units/L (7-52); Albumin 3.2 g/dL (3.5-5.7); Alkaline Phosphatase 152 Units/L (34-104); Aspartate Amino Transferase 20 Units/L (13-39); BUN/Creatinine Ratio 19 (6-26); Bilirubin,Total 1.3 mg/dL (0.3-1.0); Blood Urea Nitrogen 20 mg/dL (8-23); Calcium 8.5 mg/dL (8.6-10.3); Carbon Dioxide 22 mEq/L (23-29); Chloride 106 mEq/L (98-107); Globulin 3.2 g/dL (2.4-3.5); Glucose 117 mg/dL (70-105); Osmolality,Calculated 286 (280-300); Potassium 3.1 mEq/L (3.5-5.1); Sodium 136 mEq/L (136-145); Total Protein 6.4 g/dL (6.4-8.9); eGFR For African Americans > 60 (> 60); eGFR For Non-African Americans > 60 (> 60)
[2017-11-30 05:33] LABS: Magnesium 1.8 mg/dL (1.6-2.6); Phosphorous 3.3 mg/dL (2.7-4.5)
[2017-11-30 05:39] LABS: Eosinophils % 1.5 %; Hematocrit 35.6 % (37.5-50.1); Hemoglobin 11.7 g/dL (12.9-16.9); Immature Granulocytes % 0.3 % (0-4); Lymphocytes % 11.6 %; Mean Corpuscular HGB Conc 32.9 g/dL (31.6-35.5)
[2017-11-30 05:41] LABS: Eosinophils # 0.1 K/mcL (0.0-0.6); Immature Platelets 7.3 % (1.1-6.1); Lymphocytes # 0.4 K/mcL (0.6-4.6); Mean Corpuscular Hemoglobin 31.3 pg (28.0-33.3); Mean Corpuscular Volume 95.2 fL (83.0-100.0); Mean Platelet Volume 11.7 fL (9.4-12.4); Monocytes # 0.3 K/mcL (0.0-1.3); Monocytes % 9.1 %; Neutrophils # 2.6 K/mcL (1.6-8.9); Nucleated Red Blood Cells 1.2 /100 WBC (0); Red Blood Count 3.74 M/mcL (4.19-5.50); Segmented Neutrophils % 77.5 %
[2017-11-30 05:44] LABS: Platelet Count 65 K/mcL (140-400)
[2017-11-30 05:52] LABS: Hepatitis A Antibody IgM Nonreactive (Nonreactive); Hepatitis B Core IgM Nonreactive (Nonreactive); Hepatitis B Surface Antigen Nonreactive (Nonreactive); Hepatitis C Virus Antibody Nonreactive (Nonreactive)
[2017-11-30] MEDS: Furosemide 40 MG TABLET PO SCH ×2 (08:25→16:49)
[2017-11-30] MEDS: cephALEXin 500 MG CAPSULE PO SCH ×2 (08:25→19:57)
[2017-11-30] MEDS: Carbidopa/Levodopa 25/250 TABLET PO SCH ×3 (08:25→19:57)
[2017-11-30] MEDS: Aspirin Enteric Coated 325 MG Tablet PO SCH (08:25)
[2017-11-30] MEDS: Insulin LISPRO 300 UNITS/3 ML VIAL SQ SCH ×4 (08:27→22:04)
--- NOTE | 2017-11-30 12:36 | Internal Med Progress Note ---
Date of Encounter: 11/30/17 Time of Encounter: 12:33 - Assessment and plan (1) Weakness generalized Current Visit: Yes Status: Chronic Assessment and plan: Multifactorial As per pt has been unable to keep much food down due to persistent nausea and vomiting after any PO intake Reported to be hypotensive at home but has continued to take antihypertensives Concern for drug induced hypotension contributing to generalized weakness and falls. Will hold Lisinopril at this time Hold Metoprolol for SBP<100 Noted to have severe Left ICA stenosis, vascular surgery evaluation appreciated , outpatient follow up recommended will administer Zofran prn nausea, continue erythromycin as motility agent, pt tolerating PO intake better compared to previous day unable to start reglan due to patient being on Carbidopa/Levodopa CT chest/abd/pelvis: negative for metastatic disease PT/OT evaluation (2) Carotid stenosis Current Visit: Yes Status: Acute Assessment and plan: Carotid doppler reported critical Left ICA stenosis 80-99% Vascular surgery consultation appreciated Qualifiers: Laterality: left Qualified Code(s): I65.22 - Occlusion and stenosis of left carotid artery (3) Lung cancer Current Visit: No Status: Chronic Assessment and plan: 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 Qualifiers: Laterality: unspecified laterality Lung location: unspecified part of lung Qualified Code(s): C34.90 - Malignant neoplasm of unspecified part of unspecified bronchus or lung (4) Diabetes Current Visit: No Status: Chronic Assessment and plan: hold oral antihyperglycemic agents sliding scale insulin as needed monitor FS and BG ADA diet Qualifiers: Diabetes mellitus type: type 2 Diabetes mellitus complication status: without complication 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: without snf use Qualified Code(s): E11.9 - Type 2 diabetes mellitus without complications (5) DVT prophylaxis Current Visit: No Status: Chronic Assessment and plan: SCD (6) Elevated liver enzymes Current Visit: Yes Status: Resolved Assessment and plan: resolved hepatitis serologies nonreactive (7) Essential hypertension Current Visit: No Status: Chronic Assessment and plan: BP within acceptable range despite holding Lisinopril hold Metoprolol for SBP<100 continue to closely monitor BP (8) Hyperlipidemia Current Visit: No Status: Chronic Qualifiers: Hyperlipidemia type: unspecified Qualified Code(s): E78.5 - Hyperlipidemia , unspecified (9) Parkinson disease Current Visit: Yes Status: Chronic Assessment and plan: continue home meds (10) Thrombocytopenia Current Visit: Yes Status: Chronic (11) CAD (coronary artery disease), [place] coronary artery Current Visit: No Status: Chronic Assessment and plan: No signs of angina present at this time continue home dose of ASA, BB, Statin hold BB for SBP<100 Qualifiers: [place] vs. transplanted heart: [place] heart Associated angina: with unstable angina Qualified Code(s): I25.110 - Atherosclerotic heart disease of [place] coronary artery with unstable angina pectoris (12) CHF (congestive heart failure) Current Visit: Yes Status: Acute Assessment and plan: noted to have pulm edema on CT chest noted to have bibasilar rales continue lasix 40mg PO BID Qualifiers: Congestive heart failure type: systolic Congestive heart failure chronicity : chronic Qualified Code(s): I50.22 - Chronic systolic (congestive) heart failure (13) Metabolic acidosis Current Visit: Yes Status: Acute Assessment and plan: likely secondary to vomiting improved from previous day continue sodium bicarb PO will closely monitor (14) UTI (urinary tract infection) Current Visit: Yes Status: Acute Assessment and plan: continue Keflex PO BID f/u urine cultures Qualifiers: Urinary tract infection type: site unspecified Hematuria presence: without hematuria Qualified Code(s): N39.0 - Urinary tract infection, site not specified - Subjective Interval history: Pt seen and examined with present at beside. Pt's mental status back to baseline and is AAO x 3. Pt has baseline Parkinson's disease History of small cell lung cancer, finished chemotherapy and radiation a few months ago. Pt reported of tolerating more of PO intake from previous day Pt reported of having dark colored urine, will obtain repeat UA currently on Keflex 500mg PO BID, will continue GI evaluation requested to rule out esophageal stricture secondary to radiation /chemo therapy. - Constitutional Vitals: Temp Pulse Resp BP Pulse Ox 97.7 F 134 18 116/78 94 11/30/17 05:17 11/30/17 09:39 11/30/17 07:32 11/30/17 07:32 11/30/17 09:39 General appearance: Present: A&O X 3 (masked facies ), no acute distress, answers questions appropriately - Head Head exam: Present: atraumatic, normocephalic - Eye Eye exam: Present: conjuntiva pink, sclera anicteric - Respiratory Respiratory exam: Absent: rales (equal air entry bilaterally ), respiratory distress, wheezes - Cardiovascular Cardiovascular exam: Present: RRR, +S1, +S2. Absent: diastolic murmur, gallop, rubs, systolic murmur - GI/Abdominal GI/Abdominal exam: Present: normal bowel sounds, soft, no peritoneal signs. Absent: distended, tenderness - Extremities Exam Extremities exam: Present: warm, radial pulses palpable and symmetrical. Absent : calf tenderness, cyanotic, pedal edema Internal Medicine: Result - Labs CBC & Chem 7: 11/30/17 05:04 11/30/17 05:04 Labs: Short CBC 11/30/17 Range/Units 05:04 WBC 3.3 L (4.3-11.1) K/mcL Hgb 11.7 L (12.9-16.9) g/dL Hct 35.6 L (37.5-50.1) % Plt Count 65 L (140-400) K/mcL Neutrophils # 2.6 (1.6-8.9) K/mcL BMP 11/30/17 05:04 Sodium 136 Potassium 3.1 L Chloride 106 Carbon Dioxide 22 L BUN 20 Creatinine 1.04 Glucose 117 H Calcium 8.5 L Liver Function 11/30/17 11/30/17 Range/Units 05:04 05:04 Total Bilirubin 1.3 H 1.3 H (0.3-1.0) mg/dL Direct Bilirubin 0.6 H (0.0-0.2) mg/dL AST 20 20 (13-39) Units/L ALT 22 22 (7-52) Units/L Alkaline Phosphatase 152 H 153 H (34-104) Units/L Albumin 3.2 L 3.2 L (3.5-5.7) g/dL Consult Discharge Plan - Plan Referrals: Soto Naqvi MD [Primary Care Provider] -
--- NOTE | 2017-11-30 13:05 | Oncology Inp Progress Note ---
Date of Encounter: 11/30/17 Time of Encounter: 11:00 (1) Nausea & vomiting Current Visit: Yes Status: Acute Assessment and plan: Started erythromycin yesterday, patient reports improvement within symptoms and was able to tolerate breakfast with no nausea/vomiting. Denies dysphagia. Given his improvement in symptoms, may hold off on GI consultation if he continues to improve and symptoms subside. Qualifiers: Vomiting type: unspecified Vomiting Intractability: non-intractable Qualified Code(s): R11.2 - Nausea with vomiting, unspecified (2) Lung cancer Current Visit: Yes Status: Chronic Assessment and plan: Appreciate Vascular surgery evaluation, reviewed recommendation and discussed with Dr. Parsons treating oncologist. Recommend to hold off on pursuing carotid endarterectomy at this time. May be pursued as an outpatient in future as patient will likely need further work up and monitoring from oncologic standpoint given recent chest CT findings which may be due to changes r/t radiation vs inflammatory process vs malignancy. Qualifiers: Laterality: unspecified laterality Lung location: unspecified part of lung Qualified Code(s): C34.90 - Malignant neoplasm of unspecified part of unspecified bronchus or lung Oncology: Subj Interval history: Resting in bed, currently has no complaints. States he was able to tolerate entire breakfast and ate his su[place]ese toast/sausage without difficulty or resultant nausea/vomiting. Denies dysphagia. Denies chest pain, vertigo, SOB, abdominal pain, nausea or vomiting currently. - Constitutional Vitals: Vital Signs Temp Pulse Resp BP Pulse Ox 11/30/17 09:39 134 94 11/30/17 07:32 94 18 116/78 92 11/30/17 05:17 97.7 F 96 18 104/63 94 11/29/17 23:35 97.7 F 88 20 118/91 91 11/29/17 22:54 91 11/29/17 20:55 97.5 F L 94 20 103/82 91 Intake and Output 11/29/17 11/30/17 11/30/17 23:59 07:59 15:59 Intake Total 50 / 50 0 / 0 240 / 240 Output Total 375 / 375 400 / 400 550 / 550 Balance -325 / -325 -400 / -400 -310 / -310 Intake: Oral 50 / 50 0 / 0 240 / 240 Output: Urine 375 / 375 400 / 400 550 / 550 Other: Meal Breakfast Percent of Meal Consumed 45% Stool Size Smear Stool Color Brown # Voids 0 # Urine Diapers 1 # Bowel Movement Diapers 1 Weight 85.8 kg Blood Glucose* 105 104 112 Patient Weight 11/30/17 23:59 Weight 85.8 kg General appearance: cooperative, no acute distress, no febrile - Head Head exam: Present: atraumatic - Respiratory Respiratory exam: Present: CTAB. Absent: respiratory distress - Cardiovascular Cardiovascular exam: Present: RRR, +S1, +S2 - GI/Abdominal GI/Abdominal exam: Present: normal bowel sounds, soft. Absent: guarding, tenderness - Extremities Exam Extremities exam: Absent: pedal edema - Expanded Lower Extremity Exam Lower leg exam: Present: tenderness. Absent: swelling - Neurological Exam Neurological exam: Present: alert, oriented X3, strengths equal and symetr throughout. Absent: no focal deficits - Psychiatric Psychiatric exam: Present: normal affect, normal mood - Skin Skin exam: Present: normal color, warm Oncology: Obj Data - Labs CBC & Chem 7: 11/30/17 05:04 11/30/17 05:04 Consult Discharge Plan - Plan Referrals: Soto Naqvi MD [Primary Care Provider] -
--- NOTE | 2017-11-30 15:30 | Gastroenterology Consult Note ---
<Justin Mo - Last Filed: 11/30/17 15:28> Date of Encounter: 11/30/17 Time of Encounter: 11:50 - Assessment and plan (1) Elevated liver enzymes Current Visit: Yes Status: Resolved Assessment and plan: LFTs have improved since admission. Possibly secondary to cirrhosis. CT A/P showed a nodular liver concerning for cirrhosis. RUQ US liver demonstrates normal echogenicity without evidence of intrahepatic biliary ductal dilatation. Complete liver workup. Plan for EGD to rule out varices. Keep patient NPO at midnight. (2) Nausea & vomiting Current Visit: Yes Status: Acute Assessment and plan: Improvement with erythromycin and Zofran. Plan for EGD tomorrow. NPO at midnight. Qualifiers: Vomiting type: unspecified Vomiting Intractability: non-intractable Qualified Code(s): R11.2 - Nausea with vomiting, unspecified (3) Thrombocytopenia Current Visit: Yes Status: Chronic Assessment and plan: Possibly secondary to cirrhosis. (4) Lung cancer Current Visit: Yes Status: Chronic Qualifiers: Laterality: unspecified laterality Lung location: unspecified part of lung Qualified Code(s): C34.90 - Malignant neoplasm of unspecified part of unspecified bronchus or lung - Time Spent With Patient Total time spent is greater than 50% in coordination of care (as documented) at patient's floor/unit and/or counseling patient: GI History of Present Illness - Data of Consult Patient: known to practice within the last 3 years Consult date: 11/30/17 Requesting Physician: Brittany Kearney MD - Consult Narrative Reason for consult: dysphagia History of present illness: Mr. Otto is a 72 year old male with PMHx of cardiomyopathy, COPD, CAD, DM, HLD, HTN, [place], small cell lung cancer of right lung, NSTEMI CABG 02/2017. He has been receiving radiation treatment to the brain, last treatment October 2017. Pt has been having nausea and vomiting which could be secondary to chemo/ radiation vs esophageal stricture after radiation to the chest. LFTs elevated, platelets decreased, and CT A/P showed a nodular liver concerning for cirrhosis. Procedures: Colonoscopy 12/18/2014 Dr. Cordova: Tubular adenomas/hyperplastic polyps , diverticulosis, repeat 3 years. NSAIDs: ASA Anticoagulation: None Past Med Surg Social Fam HX - Past Medical History Medical history: cardiomyopathy, COPD, coronary artery disease, diabetes, hyperlipidemia, hypertension, myocardial infarction, other Psychiatric history: no psych history - Past Surgical History Surgical History: appendectomy, cataract, [facility]olecyst[facility] other - Social History Smoking Status: Former smoker Smokeless Tobacco Status: No Alcohol use: none Drug use: none - Family History Father Living Status: Cause of : Cancer Mother Living Status: Cause of : Cancer - Gastrointestinal Gastrointestinal: Present: as per HPI - Constitutional Constitutional: as per HPI - EENT Eyes: as per HPI Ears: Present: as per HPI Nose, mouth and throat: Present: as per HPI - Cardiovascular Cardiovascular ROS: Present: as per HPI - Respiratory Respiratory IM: Present: as per HPI - Genitourinary Genitourinary: Absent: change in color, Urinary frequency - Neurological ROS Neurological GI: Present: as per HPI - Hematologic/Lymphatic Hematologic/Lymphatic pediatric: Present: as per HPI - Musculoskeletal Musculoskeletal ROS GI: Present: as per HPI - Integumentary Integumentary GI: Present: as per HPI - Psychiatric ROS Psychiatric GI: Present: as per HPI - Endocrine Endocrine IM: Present: as per HPI - Constitutional Vitals: Temp Pulse Resp BP Pulse Ox 97.7 F 104 19 102/82 91 11/30/17 15:00 11/30/17 15:00 11/30/17 15:00 11/30/17 15:00 11/30/17 15:00 General appearance: Present: cooperative, A&O X 3, no acute distress, answers questions appropriately - Head Head exam: Present: atraumatic, normocephalic - Eye Eye exam: Present: normal appearance, sclera anicteric - ENT ENT exam: Present: mucous membranes dry - Neck Neck exam general surgery: Present: normal inspection, trachea midline - Respiratory Respiratory exam: Present: CTAB. Absent: rales, rhonchi - Cardiovascular Cardiovascular exam: Present: RRR, +S1, +S2 - GI/Abdominal GI/Abdominal exam: Present: normal bowel sounds, soft, no peritoneal signs. Absent: distended, firm, guarding, tenderness - Rectal Rectal exam: Present: deferred - Extremities Exam Extremities exam: Present: warm - Neurological Exam Neurological exam: Present: no focal deficits - Psychiatric Psychiatric exam: Present: normal affect, normal mood - Skin Skin exam: Present: dry, intact, normal color, warm Results - Labs CBC & Chem 7: 11/30/17 05:04 11/30/17 05:04 Labs: Last Result Calcium 8.5 mg/dL (8.6-10.3) L 11/30/17 05:04 Troponin I 0.05 ng/mL (< 0.04) H* 11/28/17 10:09 Entire Visit Hgb 11.7 g/dL (12.9-16.9) L 11/30/17 05:04 Hct 35.6 % (37.5-50.1) L 11/30/17 05:04 Total Bilirubin 1.3 mg/dL (0.3-1.0) H 11/30/17 05:04 AST 20 Units/L (13-39) 11/30/17 05:04 ALT 22 Units/L (7-52) 11/30/17 05:04 Consult Discharge Plan - Plan Referrals: Soto Naqvi MD [Primary Care Provider] - <Camelia Cordova - Last Filed: 11/30/17 18:11> Date of Encounter: 11/30/17 Time of Encounter: 17:00 - Time Spent With Patient Total time spent is greater than 50% in coordination of care (as documented) at patient's floor/unit and/or counseling patient: GI History of Present Illness - Data of Consult Requesting Physician: Brittany Kearney MD - Consult Narrative History of present illness: Mr. Otto is a 72 year old male - Constitutional Vitals: Temp Pulse Resp BP Pulse Ox 97.7 F 104 19 102/82 91 11/30/17 15:00 11/30/17 15:00 11/30/17 15:00 11/30/17 15:00 11/30/17 15:00 Results - Labs CBC & Chem 7: 11/30/17 05:04 11/30/17 05:04 Labs: Last Result Calcium 8.5 mg/dL (8.6-10.3) L 11/30/17 05:04 Ferritin 256 ng/ml (20-250) H 11/30/17 16:36 Troponin I 0.05 ng/mL (< 0.04) H* 11/28/17 10:09 Entire Visit Hgb 11.7 g/dL (12.9-16.9) L 11/30/17 05:04 Hct 35.6 % (37.5-50.1) L 11/30/17 05:04 PT 12.3 Seconds (9.4-12.1) H 11/30/17 16:36 Ferritin 256 ng/ml (20-250) H 11/30/17 16:36 Total Bilirubin 1.3 mg/dL (0.3-1.0) H 11/30/17 05:04 AST 20 Units/L (13-39) 11/30/17 05:04 ALT 22 Units/L (7-52) 11/30/17 05:04 - ABG ABG results: PT/INR, D-dimer PT 12.3 Seconds (9.4-12.1) H 11/30/17 16:36 - Attending Attestation I examined this patient and my medical decision-making was reviewed with the Resident Physician. I agree with the documented findings, disposition and treatment plan as described except to the extent set forth below. Patient 72-year-old male with a history of small cell lung cancer and now with the cirrhosis on CT scan. Did had nausea vomiting. Although symptoms are doing better now and did ate 50% of his dinner. Denies any trouble with her swallowing. Recommendation: EGD both for variceal screening and also for his nausea and vomiting symptom which could be multifactorial including his chemoradiation
[2017-11-30 17:04] LABS: INR 1.1; Prothrombin Time 12.3 Seconds (9.4-12.1)
[2017-12-01 04:36] LABS: Red Cell Distribution Width 13.8 % (11.5-14.5)
[2017-12-01 04:38] LABS: Basophils % 0.5 %; Eosinophils # 0.1 K/mcL (0.0-0.6); Eosinophils % 2.7 %; Hematocrit 36.2 % (37.5-50.1); Hemoglobin 11.8 g/dL (12.9-16.9); Immature Granulocytes % 0.8 % (0-4); Immature Platelets 8.4 % (1.1-6.1); Lymphocytes # 0.6 K/mcL (0.6-4.6); Lymphocytes % 15.1 %; Mean Corpuscular HGB Conc 32.6 g/dL (31.6-35.5); Mean Platelet Volume 12.1 fL (9.4-12.4); Monocytes # 0.4 K/mcL (0.0-1.3); Monocytes % 10.5 %; Neutrophils # 2.6 K/mcL (1.6-8.9); Red Blood Count 3.81 M/mcL (4.19-5.50); Segmented Neutrophils % 70.4 %
[2017-12-01 04:53] LABS: BUN/Creatinine Ratio 20 (6-26); Blood Urea Nitrogen 22 mg/dL (8-23); Calcium 8.6 mg/dL (8.6-10.3); Carbon Dioxide 23 mEq/L (23-29); Chloride 107 mEq/L (98-107); Glucose 121 mg/dL (70-105); Magnesium 1.8 mg/dL (1.6-2.6); Osmolality,Calculated 293 (280-300); Phosphorous 3.1 mg/dL (2.7-4.5); Sodium 139 mEq/L (136-145); eGFR For African Americans > 60 (> 60); eGFR For Non-African Americans > 60 (> 60)
[2017-12-01 05:04] LABS: Platelet Count 70 K/mcL (140-400)
[2017-12-01] MEDS: Aspirin Enteric Coated 325 MG Tablet PO SCH (08:23)
[2017-12-01] MEDS: Benzonatate 100 MG CAPSULE PO PRN (08:23)
[2017-12-01] MEDS: Carbidopa/Levodopa 25/250 TABLET PO SCH ×3 (08:24→21:07)
[2017-12-01] MEDS: Insulin LISPRO 300 UNITS/3 ML VIAL SQ SCH ×4 (08:24→21:07)
[2017-12-01] MEDS: cephALEXin 500 MG CAPSULE PO SCH (08:24)
[2017-12-01] MEDS: Furosemide 40 MG TABLET PO SCH ×2 (08:24→17:34)
--- NOTE | 2017-12-01 12:35 | Internal Med Progress Note ---
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 Continue metoprolol. We will add nebulizer treatment. Wean down oxygen as tolerated. Qualifiers: Congestive heart failure type: systolic Congestive heart failure chronicity : chronic Qualified Code(s): I50.22 - Chronic systolic (congestive) heart failure (4) Elevated liver enzymes Current Visit: Yes Status: Resolved Assessment and plan: resolved hepatitis serologies nonreactive (5) Thrombocytopenia Current Visit: Yes Status: Chronic Assessment and plan: Chronic in nature. Likely chemotherapy induced. (6) Carotid stenosis Current Visit: Yes Status: Acute Assessment and plan: Carotid doppler reported critical Left ICA stenosis 80-99% Vascular surgery consultation appreciated . Plans for outpatient follow-up. No surgical needs at this day. Qualifiers: Laterality: left Qualified Code(s): I65.22 - Occlusion and stenosis of left carotid artery (7) Nausea & vomiting Current Visit: Yes Status: Acute Assessment and plan: Continue with erythromycin. Continue Zofran. GI has been consulted. EGD is planned to rule out radiation-induced esophagitis Qualifiers: Vomiting type: unspecified Vomiting Intractability: non-intractable Qualified Code(s): R11.2 - Nausea with vomiting, unspecified (8) CAD (coronary artery disease), [place] coronary artery Current Visit: No Status: Chronic Assessment and plan: No signs of angina present at this time continue home dose of ASA, BB, Statin hold BB for SBP<100 Qualifiers: [place] vs. transplanted heart: [place] heart Associated angina: with unstable angina Qualified Code(s): I25.110 - Atherosclerotic heart disease of [place] coronary artery with unstable angina pectoris (9) Essential hypertension Current Visit: No Status: Chronic Assessment and plan: BP within acceptable range despite holding Lisinopril hold Metoprolol for SBP<100 continue to closely monitor BP (10) Hyperlipidemia Current Visit: No Status: Chronic Assessment and plan: Continue statin Qualifiers: Hyperlipidemia type: unspecified Qualified Code(s): E78.5 - Hyperlipidemia , unspecified (11) Parkinson disease Current Visit: Yes Status: Chronic Assessment and plan: continue home meds (12) DVT prophylaxis Current Visit: No Status: Chronic Assessment and plan: SCD - Subjective Interval history: No acute events. Patient seen and examined. Feels okay today. He does not feel nauseous. Awaiting EGD this afternoon. - Constitutional Vitals: Temp Pulse Resp BP Pulse Ox 97.9 F 102 17 117/74 96 12/01/17 07:00 12/01/17 07:00 12/01/17 07:00 12/01/17 07:00 12/01/17 07:00 General appearance: Present: A&O X 3 (masked facies ), no acute distress, answers questions appropriately Exam: GEN: NAD CVS: RRR. S1, S2, No m/r/g RESP: CTAB ABD: Soft, NT, ND, +BS EXT: No edema. 2+ DP. No rashes NEURO: Nonfocal Internal Medicine: Result - Labs CBC & Chem 7: 12/01/17 03:48 12/01/17 03:48 Labs: Short CBC 12/01/17 Range/Units 03:48 WBC 3.7 L (4.3-11.1) K/mcL Hgb 11.8 L (12.9-16.9) g/dL Hct 36.2 L (37.5-50.1) % Plt Count 70 L (140-400) K/mcL Neutrophils # 2.6 (1.6-8.9) K/mcL BMP 12/01/17 03:48 Sodium 139 Potassium 3.0 L Chloride 107 Carbon Dioxide 23 BUN 22 Creatinine 1.09 Glucose 121 H Calcium 8.6 - ABG Interpretation ABG results: PT/INR, D-dimer PT 12.3 Seconds (9.4-12.1) H 11/30/17 16:36 Consult Discharge Plan - Plan Referrals: Soto Naqvi MD [Primary Care Provider] -
[2017-12-01] MEDS ORDERED: Ipratropium/Albuterol Neb 3 ML IH PRN (12:39)
--- NOTE | 2017-12-01 14:18 | Anesthesia Evaluation PreOp ---
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 Has improved with admission, hydration. Liver enzymes transiently elevated.) Anesthesia History: No Prior Anesthetic Complications, Past Anesthesia Alcohol Use: none Drug use: none Medications and Allergies Carbidopa/Levodopa [Carbidopa-Levodopa 25-250 Tab] 1 tab PO TID 03/14/17 [ History] Lisinopril [Zestril] 20 mg PO DAILY 03/14/17 [History] Pravastatin Sodium [Pravachol] 40 mg PO DAILY 03/14/17 [History] Tamsulosin [Flomax] 0.4 mg PO DAILY 03/14/17 [History] Vit A/Vit C/Vit E/Zinc/Copper [Preservision Areds Tablet] 2 tab PO DAILY [History] metFORMIN [Glucophage] 500 mg PO DAILY 03/14/17 [History] Aspirin Enteric Coated [Aspirin EC] 325 mg PO DAILY tablet. 03/15/17 [Rx] Magic Mouthwash [Magic Mouthwash BLM] 10 ml PO QID PRN #240 ml 05/04/17 [Rx] Linagliptin [Tradjenta] 5 mg PO DAILY 06/12/17 [History] Benzonatate [Tessalon] 100 mg PO TID PRN #60 capsule 11/03/17 [Rx] Guaifenesin [Mucinex] 600 mg PO BID #30 tab.er.12h 11/03/17 [Rx] Metoprolol [Lopressor] 25 mg PO BID 11/28/17 [History] 3 Allergy/AdvReac Type Severity Reaction Status Date / Time atorvastatin [From Lipitor] AdvReac Muscle Pain Verified 11/28/17 13:00 prochlorperazine AdvReac Hypertensio Verified 08/18/17 10:34 n - Meds/Allergy Pre-op Review Medications Reviewed: Yes Allergies Reviewed: Yes Beta Blockers on Current Med List: Yes ([id number]) Anesthesia Results - Labs 12/01/17 03:48 12/01/17 03:48 - Imaging EKG: report reviewed (sinus rhythm, frequent PACs) Additional studies: ECHO, EF 30-35% Anesthesia Exam Selected Entries 12/01/17 07:00 12/01/17 14:14 Temperature 97.9 F Pulse Rate 97 Respiratory Rate 18 Blood Pressure 114/83 O2 Sat by Pulse Oximetry 92 Weight: 82 kg. NPO (# of Hours): over 8 hours - HEENT Pupil (Motor): Other (visually impaired.) Denture Type: Upper: Complete Oral Opening: Greater than 3 - Cardiac Rhythm: Regular - Pulmonary Breath Sounds: bilateral Rhonchi Respiratory Effort: Symmetrical Anesthesia Assess/Plan ASA Score: 3 Modified Avani Scale for Level of Consciousness: Cooperative, oriented, and tranquil Anesthetic Plan: MAC Monitoring Plan: Standard Monitors (Discussed MAC anesthesia, agreed to proceed. )
--- NOTE | 2017-12-01 14:31 | Event Note ---
Date of Encounter: 11/30/17 Time of Encounter: 12:00 I spoke with the patient and his family today, November 30. I reviewed with them again the issues that we discussed on Thursday at my initial consultation. The patient has a high-grade left internal carotid artery stenosis by duplex scanning. In order to further understand his status he would require carotid angiography and then possible left carotid endarterectomy. However at this time he has other ongoing medical issues that need to be addressed. Therefore I will await the decision of the medical consultants once they have been able to fully assess his status. I will temporarily sign off the case for now and will be available as needed.
[2017-12-01] MEDS ORDERED: *HR* Etomidate 40 MG/20 ML VIAL IVP ONE (14:42)
[2017-12-01] MEDS ORDERED: Lidocaine -MPF 2% 2 ML VIAL ONE (14:43)
[2017-12-02 04:15] LABS: Basophils % 0.5 %; Immature Granulocytes % 0.7 % (0-4)
[2017-12-02 04:16] LABS: Eosinophils # 0.1 K/mcL (0.0-0.6); Eosinophils % 2.1 %; Hematocrit 40.5 % (37.5-50.1); Hemoglobin 13.5 g/dL (12.9-16.9); Immature Platelets 8.5 % (1.1-6.1); Lymphocytes # 0.8 K/mcL (0.6-4.6); Mean Corpuscular HGB Conc 33.3 g/dL (31.6-35.5); Mean Corpuscular Hemoglobin 31.4 pg (28.0-33.3); Mean Corpuscular Volume 94.2 fL (83.0-100.0); Mean Platelet Volume 11.9 fL (9.4-12.4); Monocytes # 0.7 K/mcL (0.0-1.3); Monocytes % 11.3 %; Neutrophils # 4.4 K/mcL (1.6-8.9); Red Cell Distribution Width 13.7 % (11.5-14.5); Segmented Neutrophils % 72.4 %
[2017-12-02 04:25] LABS: BUN/Creatinine Ratio 17 (6-26); Blood Urea Nitrogen 18 mg/dL (8-23); Calcium 8.8 mg/dL (8.6-10.3); Carbon Dioxide 23 mEq/L (23-29); Chloride 106 mEq/L (98-107); Glucose 130 mg/dL (70-105); Osmolality,Calculated 294 (280-300); Potassium 3.1 mEq/L (3.5-5.1); Sodium 140 mEq/L (136-145); eGFR For African Americans > 60 (> 60); eGFR For Non-African Americans > 60 (> 60)
[2017-12-02 04:39] LABS: Platelet Count 89 K/mcL (140-400)
[2017-12-02] MEDS: Insulin LISPRO 300 UNITS/3 ML VIAL SQ SCH ×2 (09:59→11:39)
[2017-12-02] MEDS: Carbidopa/Levodopa 25/250 TABLET PO SCH ×2 (10:13→15:17)
[2017-12-02] MEDS: Aspirin Enteric Coated 325 MG Tablet PO SCH (10:13)
[2017-12-02] MEDS: Furosemide 40 MG TABLET PO SCH (10:13)
[2017-12-02 11:21] VITALS: BP 110/80
[2017-12-02 13:40] LABS: Alpha-1-Antitrypsin 231 mg/dL (90-200)
[2017-12-02 13:41] LABS: Ceruloplasmin 28 mg/dL (17-54)
--- NOTE | 2017-12-02 14:53 | Discharge Summary ---
Date of Encounter: 12/02/17 Time of Encounter: 14:51 - Discharge Diagnosis (1) Acute and chronic respiratory failure with hypoxia Priority: Primary Status: Acute Comments: Acute on chronic hypoxic respiratory failure secondary to acute pulmonary edema from acute systolic CHF exacerbation in combination with possible atypical pneumonia (2) Pneumonia Priority: Primary Status: Acute Qualifiers: Pneumonia type: due to Pneumococcus Laterality: left Lung location: lower lobe of lung Qualified Code(s): J13 - Pneumonia due to Streptococcus pneumoniae (3) Lung cancer Priority: Secondary Status: Chronic Qualifiers: Laterality: unspecified laterality Lung location: unspecified part of lung Qualified Code(s): C34.90 - Malignant neoplasm of unspecified part of unspecified bronchus or lung (4) CHF (congestive heart failure) Priority: Primary Status: Acute Qualifiers: Congestive heart failure type: systolic Congestive heart failure chronicity : chronic Qualified Code(s): I50.22 - Chronic systolic (congestive) heart failure (5) CKD (chronic kidney disease) stage 3, GFR 30-59 ml/min Priority: Secondary Status: Acute (6) Carotid stenosis Priority: Secondary Status: Acute Comments: 80-99% stenosis of the left internal carotid artery. There is no significant stenosis in the right carotid system area discussed potential risks and benefits of medical versus surgical treatment for the left carotid stenosis. It was clearly explained to the patient and his family the need for further consultation before any decision be made regarding carotid surgery. There was concern about further contrast load as he would require a carotid artery angiogram to clarify his carotid anatomy. In addition he would need input from oncology and radiation therapy and his primary care physician as to his suitability for general anesthesia and carotid endarterectomy. At this point the left carotid stenosis is not symptomatic and did not cause his fall at night leading to his admission at this time. . Qualifiers: Laterality: left Qualified Code(s): I65.22 - Occlusion and stenosis of left carotid artery (7) COPD (chronic obstructive pulmonary disease) Priority: Secondary Status: Chronic Qualifiers: COPD type: unspecified COPD Qualified Code(s): J44.9 - Chronic obstructive pulmonary disease, unspecified (8) CAD (coronary artery disease), [place] coronary artery Priority: Secondary Status: Chronic Qualifiers: [place] vs. transplanted heart: [place] heart Associated angina: with unstable angina Qualified Code(s): I25.110 - Atherosclerotic heart disease of [place] coronary artery with unstable angina pectoris (9) Essential hypertension Priority: Secondary Status: Chronic (10) Hyperlipidemia Priority: Secondary Status: Chronic Qualifiers: Hyperlipidemia type: unspecified Qualified Code(s): E78.5 - Hyperlipidemia , unspecified (11) Parkinson disease Priority: Secondary Status: Chronic (12) Gastroparesis Priority: Secondary Status: Acute (13) Esophagitis Priority: Secondary Status: Acute (14) Schatzki's ring Priority: Secondary Status: Acute - Discharge Medications Prescriptions: Erythromycin [Ector-Tab] 250 mg PO Q6HR #120 tablet. Furosemide [Lasix] 20 mg PO BID #60 tablet Omeprazole [PriLOSEC] 40 mg PO BIDAC #30 capsule. Potassium Chloride [K-Tab ER] 10 meq PO DAILY #30 tablet.er Home Medications: Carbidopa/Levodopa [Carbidopa-Levodopa 25-250 Tab] 1 tab PO TID 03/14/17 [ History] Lisinopril [Zestril] 20 mg PO DAILY 03/14/17 [History] Pravastatin Sodium [Pravachol] 40 mg PO DAILY 03/14/17 [History] Tamsulosin [Flomax] 0.4 mg PO DAILY 03/14/17 [History] Vit A/Vit C/Vit E/Zinc/Copper [Preservision Areds Tablet] 2 tab PO DAILY [History] metFORMIN [Glucophage] 500 mg PO DAILY 03/14/17 [History] Aspirin Enteric Coated [Aspirin EC] 325 mg PO DAILY tablet. 03/15/17 [Rx] Magic Mouthwash [Magic Mouthwash BLM] 10 ml PO QID PRN #240 ml 05/04/17 [Rx] Linagliptin [Tradjenta] 5 mg PO DAILY 06/12/17 [History] Benzonatate [Tessalon] 100 mg PO TID PRN #60 capsule 11/03/17 [Rx] Guaifenesin [Mucinex] 600 mg PO BID #30 tab.er.12h 11/03/17 [Rx] Metoprolol [Lopressor] 25 mg PO BID 11/28/17 [History] Erythromycin [Ector-Tab] 250 mg PO Q6HR #120 tablet. 12/02/17 [Rx] Furosemide [Lasix] 20 mg PO BID #60 tablet 12/02/17 [Rx] Omeprazole [PriLOSEC] 40 mg PO BIDAC #30 capsule. 12/02/17 [Rx] Potassium Chloride [K-Tab ER] 10 meq PO DAILY #30 tablet.er 12/02/17 [Rx] Allergies/Adverse Reactions: 3 Allergy/AdvReac Type Severity Reaction Status Date / Time atorvastatin [From Lipitor] AdvReac Muscle Pain Verified 11/28/17 13:00 prochlorperazine AdvReac Hypertensio Verified 08/18/17 10:34 n Date of admission: 11/28/17 15:03 Primary care physician: Soto Naqvi MD Consults: 11/27/17 17:55 Consult to Nutrition [CONS] Routine Comment: Consulting Provider: NUTRITION Reason for Dietary Consult: Other 11/27/17 20:33 Consult to Occupational Therapy [CONS] Routine Comment: Evaluate, develop and implement POC Reason for Consult: debility Consult to Physical Therapy [CONS] Routine Comment: Evaluate, develop and implement POC Reason for Consult: debility 11/28/17 11:33 Consult to Vascular Surgery [CONS] Routine Consulting Provider: V[facility] Reason for Consult: severe Left ICA stenosis (70-99%) Call Completed: Yes 11/29/17 14:44 Consult to Gastroenterology [CONS] Routine Consulting Provider: Gastroenter[facility] Reason for Consult: dysphagia Call Completed: Yes 11/29/17 15:08 Consult to Oncology [CONS] Routine Consulting Provider: [facility] Reason for Consult: persistent vomiting s/p chemo/radiation for small cell lung ca Call Completed: Yes 11/30/17 14:48 Consult to Asset Protection Professional [CONS] Routine Reason for SW Consult: PT/OT recommending SNF - Patient Status Disposition: Transfer SNF Condition: Fair Overall status at discharge: patient is progressing back to baseline - Discharge Instructions Follow Up With: Soto Naqvi MD [Primary Care Provider] - 12/09/17 2:30 pm Additional Instructions: Follow with primary care physician as outpatient. Start omeprazole 40 mg twice a day, continue Lasix. Continue erythromycin 4 times a day. - Diet and Activity Activity: increase activity as tolerated Diet: low fat, low cholesterol Hospital course: Mr. Otto is a 72 year old male male past medical history of small cell lung cancer, hypertension, hyperlipidemia, COPD O 2 dep , diabetes not insulin-dependent, Parkinson's CAD, NSTEMI, CABG 03/09 as well as stent. Patient was receiving radiation treatment, to brain his last treatment occurred in October 2017. Patient stated that over the past he has been experiencing increasing fatigue general malaise as well as nausea / vomiting and decreased oral intake. Patient is normally independent and ambulates independently. Apparently around 3:57 AM 11/27/2017 patient was attempting to get out of bed to go to the bathroom he was unable to stand and bear weight due to he was too weak. He fell to the floor denies hitting his head or losing any consciousness. He was assisted back to bed by his son he continued to feel weak throughout the morning and was brought into [facility] for further evaluation. According to [facility] records lab work did reveal elevated lactate, troponin, liver enzymes and creatinine. Patient was hypotensive with systolics in the 80s and tachycardic. CT of head was negative for any acute intracranial abnormalities or bleeds. Chest x-ray indicative of mild CHF. Patient was transferred to [facility] for further workup and evaluation. Presently the patient denies any chest pain or shortness of breath he is hemodynamically stable at this time. CT scan of chest showed: Small bibasilar effusions and ground-glass opacities increased. Increased pulmonary edema. Centrilobular and paraseptal emphysema. Coronary artery disease is status post CABG. Lasix IV was started, echocardiogram showed an ejection fraction of 30-35%, also diastolic dysfunction. The patient was started on azithromycin due to possible gastroparesis, but probably also treated his pneumonia. The GI service was consulted and a the patient underwent an upper endoscopy that showed esophagitis. Omeprazole 40 mg twice a day will be started. Potassium was repleted - Time Spent with Patient Total time spent providing and/or coordinating discharge services: Greater than 30 minutes (40 min) - Constitutional Vitals: Temp Pulse Resp BP Pulse Ox 98.6 F 94 16 110/80 97 12/02/17 11:12 12/02/17 11:12 12/02/17 11:12 12/02/17 11:12 12/02/17 11:12 General appearance: Present: A&O X 3 (masked facies ), no acute distress, answers questions appropriately - Head Head exam: Present: atraumatic, normocephalic - Eye Eye exam: Present: PERRL, conjuntiva pink, sclera anicteric Pupils: Present: PERRL - Neck Neck exam general surgery: Present: supple, trachea midline. Absent: lymphadenopathy - Respiratory Respiratory exam: Present: CTAB, rales (Minimal fine crackles at both bases). Absent: accessory muscle use, rhonchi, wheezes - Cardiovascular Cardiovascular exam: Present: RRR, +S1, +S2. Absent: diastolic murmur, gallop, rubs, systolic murmur - GI/Abdominal GI/Abdominal exam: Present: normal bowel sounds, soft, no peritoneal signs. Absent: distended, tenderness - Extremities Exam Extremities exam: Present: warm, radial pulses palpable and symmetrical. Absent : calf tenderness, cyanotic, pedal edema - Neurological Exam Neurological exam: Present: CN II-XII intact, oriented X3, no focal deficits. Absent: pronater drift, facial droop, speech deficit - Skin Skin exam: Present: dry, intact - VTE Documentation of Mechanical Device: Intermittent pneumatic compression device
--- NOTE | 2017-12-02 15:21 | Physician Discharge Referral ---
ExtendedCare Referral Info Provider in Charge after Transfer: PCP Institutional Level of Care: Skilled - Diagnosis (1) Acute and chronic respiratory failure with hypoxia Status: Acute (2) Pneumonia Status: Acute (3) Lung cancer Status: Chronic (4) CHF (congestive heart failure) Status: Acute (5) CKD (chronic kidney disease) stage 3, GFR 30-59 ml/min Status: Acute (6) Carotid stenosis Status: Acute (7) COPD (chronic obstructive pulmonary disease) Status: Chronic (8) CAD (coronary artery disease), [place] coronary artery Status: Chronic (9) Essential hypertension Status: Chronic (10) Hyperlipidemia Status: Chronic (11) Parkinson disease Status: Chronic (12) Gastroparesis Status: Acute (13) Esophagitis Status: Acute (14) Schatzki's ring Status: Acute - Transfer Medications Prescriptions: Erythromycin [Ector-Tab] 250 mg PO Q6HR #120 tablet. Furosemide [Lasix] 20 mg PO BID #60 tablet Omeprazole [PriLOSEC] 40 mg PO BIDAC #30 capsule. Potassium Chloride [K-Tab ER] 10 meq PO DAILY #30 tablet.er Home Medications: Carbidopa/Levodopa [Carbidopa-Levodopa 25-250 Tab] 1 tab PO TID 03/14/17 [ History] Lisinopril [Zestril] 20 mg PO DAILY 03/14/17 [History] Pravastatin Sodium [Pravachol] 40 mg PO DAILY 03/14/17 [History] Tamsulosin [Flomax] 0.4 mg PO DAILY 03/14/17 [History] Vit A/Vit C/Vit E/Zinc/Copper [Preservision Areds Tablet] 2 tab PO DAILY [History] metFORMIN [Glucophage] 500 mg PO DAILY 03/14/17 [History] Aspirin Enteric Coated [Aspirin EC] 325 mg PO DAILY tablet. 03/15/17 [Rx] Magic Mouthwash [Magic Mouthwash BLM] 10 ml PO QID PRN #240 ml 05/04/17 [Rx] Linagliptin [Tradjenta] 5 mg PO DAILY 06/12/17 [History] Benzonatate [Tessalon] 100 mg PO TID PRN #60 capsule 11/03/17 [Rx] Guaifenesin [Mucinex] 600 mg PO BID #30 tab.er.12h 11/03/17 [Rx] Metoprolol [Lopressor] 25 mg PO BID 11/28/17 [History] Erythromycin [Ector-Tab] 250 mg PO Q6HR #120 tablet. 12/02/17 [Rx] Furosemide [Lasix] 20 mg PO BID #60 tablet 12/02/17 [Rx] Omeprazole [PriLOSEC] 40 mg PO BIDAC #30 capsule. 12/02/17 [Rx] Potassium Chloride [K-Tab ER] 10 meq PO DAILY #30 tablet.er 12/02/17 [Rx] Allergies/Adverse Reactions: 3 Allergy/AdvReac Type Severity Reaction Status Date / Time atorvastatin [From Lipitor] AdvReac Muscle Pain Verified 11/28/17 13:00 prochlorperazine AdvReac Hypertensio Verified 08/18/17 10:34 n - Respiratory Orders Smoking Cessation: Smoking cessation has been advised. For more information, call the [place] Tobacco Quit Line at 2-680-RPFJ-NOW. - Advance Directives Code Status: Full Code - Rehabiliation Orders Other: Follow with primary care physician as outpatient. Start omeprazole 40 mg twice a day, continue Lasix. Continue erythromycin 4 times a day. CERTIFICATION: I certify that the transfer of the above named patient to an Extended Care Facility is necessary for the continuing treatment of the diagnosis listed. The above information is true and accurate reflection of patient's current condition. Confidential - Redisclosure prohibited without a patient's written consent.
[2017-12-03 08:17] LABS: ANA IgG by ELISA NONE DETECTED (None Detected); F-Actin (sm muscle) Ab IgG 24 Units (0-19); Myeloperoxidase Ab 0 AU/mL (0-19); Serine Protease-3 Antibody 0 AU/mL (0-19)
[2017-12-04 08:37] LABS: Smooth Muscle Ab Titer IgG <1:20 (<1:20)
== END 2017-12-02 18:09 | DRG 291 ==
LOC: 2NENU → SUATTDRO 17:09
PROVIDERS: ADMIT Hospitalist; ATTEND Internal Medicine

== ENCOUNTER 2017-12-31 22:01 | Inpatient (IN) ==
[2018-01-01] MEDS ORDERED: Naloxone 0.4 MG/ML INJ IVP PRN (01:33)
--- NOTE | 2018-01-01 01:39 | Internal Med History&Physical ---
Date of Encounter: 01/01/18 Time of Encounter: 01:38 Assessment and Plan (1) Common bile duct calculi Current visit: Yes Status: Acute OBleness required transfer for CBD stone LFT wnl at outside hospital, recheck Clinically, minimally symptomatic Dr Cordova of GI will see, NPO , IVF No clinical evidence of sepsis, hold antibiotics, send surveillance blood cx (2) Constipation Current visit: Yes Status: Acute add colace, senna, miralax, encourage hydration - monitor response Qualifiers: Constipation type: slow transit constipation Qualified Code(s): K59.01 - Slow transit constipation (3) Elevated lactic acid level Current visit: No Status: Acute No clinical evidence of sepsis, hold antibiotics, send surveillance blood cx (4) Small cell lung cancer Current visit: No Status: Acute monitor for now s/p therapy Qualifiers: Laterality: unspecified laterality Qualified Code(s): C34.90 - Malignant neoplasm of unspecified part of unspecified bronchus or lung (5) CAD (coronary artery disease), [place] coronary artery Current visit: No Status: Chronic monitor for now, continue cardiac med Qualifiers: [place] vs. transplanted heart: [place] heart Associated angina: without angina Qualified Code(s): I25.10 - Atherosclerotic heart disease of [place] coronary artery without angina pectoris (6) COPD (chronic obstructive pulmonary disease) Current visit: No Status: Chronic stable, no flare up Qualifiers: COPD type: chronic bronchitis Chronic bronchitis type: simple Qualified Code(s): J41.0 - Simple chronic bronchitis (7) Diabetes Current visit: No Status: Chronic ISS for now Qualifiers: Diabetes mellitus type: type 2 Diabetes mellitus complication status: without complication Qualified Code(s): E11.9 - Type 2 diabetes mellitus without complications (8) Parkinson disease Current visit: No Status: Chronic continue med Internal Medicine - H&P: HPI Chief complaint: abdo discomfort, constipation History of present illness: Mr. Otto is a 72 year old male who presents as a transfer from [facility] for incidental CBD stone needing ERCP. Has hx of heart attack approx 1 year ago and s/p CABG at [facility] 02/2017, DMII , CHF, cirrhosis ?? reported in chart , recurrent falls. Limited stage SCLC s/p chemo-rt and pci completed late 2016. Due to his recurrent falls, he had been at a SNF for 2 weeks. He was sent to [facility] ED after c/o generalized abdominal discomfort, poorly localized in the last few days that was associated constipation and anorexia. He denies fever or chills or n/v. At outside ED, he received CT A/P which noted stool impaction and a CBD measuring 1.2 with biliary diltation. CXR was w/o acute findings - noted chronic changes. Bili 0.5, AST 27, ALT 9, lipase 59 Lactate 2.9 Plt 88 WBC 5.3 Hb 12.2 Past Med Surg Social Fam HX - Past Medical History Medical history: cardiomyopathy, COPD, coronary artery disease, diabetes, hyperlipidemia, hypertension, myocardial infarction, other Psychiatric history: no psych history - Past Surgical History Surgical History: appendectomy, cataract, [facility]olecyst[facility] other - Social History Smoking Status: Former smoker Smokeless Tobacco Status: No Alcohol use: none Drug use: none - Family History Father Living Status: Mother Living Status: - Additional Family History Additional family history: HTN Internal Medicine - H&P: Meds Carbidopa/Levodopa [Carbidopa-Levodopa 25-250 Tab] 1 tab PO TID 03/14/17 [ History] Lisinopril [Zestril] 10 mg PO DAILY 03/14/17 [History] Pravastatin Sodium [Pravachol] 40 mg PO DAILY 03/14/17 [History] Tamsulosin [Flomax] 0.4 mg PO DAILY 03/14/17 [History] Vit A/Vit C/Vit E/Zinc/Copper [Preservision Areds Tablet] 2 tab PO DAILY [History] metFORMIN [Glucophage] 500 mg PO DAILY 03/14/17 [History] Aspirin Enteric Coated [Aspirin EC] 325 mg PO DAILY tablet. 03/15/17 [Rx] Magic Mouthwash [Magic Mouthwash BLM] 10 ml PO QID PRN #240 ml 05/04/17 [Rx] Linagliptin [Tradjenta] 5 mg PO DAILY 06/12/17 [History] Benzonatate [Tessalon] 100 mg PO TID PRN #60 capsule 11/03/17 [Rx] Guaifenesin [Mucinex] 600 mg PO BID #30 tab.er.12h 11/03/17 [Rx] Furosemide [Lasix] 20 mg PO BID #60 tablet 12/02/17 [Rx] Omeprazole [PriLOSEC] 40 mg PO BIDAC #30 capsule. 12/02/17 [Rx] Potassium Chloride [K-Tab ER] 10 meq PO DAILY #30 tablet.er 12/02/17 [Rx] Erythromycin [Ector-Tab] 250 mg PO BID 12/29/17 [History] Ipratropium/Albuterol Neb [Duoneb] 3 ml IH Q4HR PRN 12/29/17 [History] Magnesium Hydroxide [Milk of Magnesia] 30 ml PO DAILY PRN 12/29/17 [History] 3 Allergy/AdvReac Type Severity Reaction Status Date / Time atorvastatin [From Lipitor] AdvReac Muscle Pain Verified 12/29/17 15:28 prochlorperazine AdvReac Hypertensio Verified 12/29/17 15:28 n All Systems PM: A 10-system review of systems was performed and is negative for pertinent findings except as documented above in the HPI. Review of systems: ROS 14 point review of systems reviewed as best as possible given presentation. Pertinent positive or negative as per HPI or otherwise reviewed as negative - Constitutional Vitals: HR 90, BP 110/80, Comfortable on NC, afebrile Exam: General - AAO x 3 Psych - Appropriate affect/speech. No agitation Eyes - ROJAS. Eye lids intact. No scleral icterus Heart - Sinus. RRR. S1 and S2 present. No added HS/murmurs appreciated. No elevated JVD appreciated. Lung - Adequate air entry b/l, No crackles/wheezes appreciated GI - Soft, no guarding or ridigity. No hepatosplenomegaly/ascites. BS+ - No CVA/suprapubic tenderness or palpable bladder distension Skin - Intact. No rash/petechiae/ecchymosis.
[2018-01-01] MEDS ORDERED: D5% in Water 1,000 ML IVC PRN (01:52)
[2018-01-01] MEDS ORDERED: *HR* Dextrose 50 % in Water (Syg) 50 ML SYRINGE IVP PRN (01:52)
[2018-01-01] MEDS ORDERED: Dextrose Gel 15 GM/37.5 ML TUBE PO PRN ×2 (01:52)
[2018-01-01] MEDS: Ringers Solution, Lactated 1,000 ML IVC SCH ×2 (02:54→11:15)
[2018-01-01 02:58] LABS: Mean Platelet Volume 10.6 fL (9.4-12.4)
[2018-01-01 03:00] LABS: Basophils % 0.8 %; Eosinophils # 0.1 K/mcL (0.0-0.6); Eosinophils % 2.6 %; Hematocrit 36.6 % (37.5-50.1); Hemoglobin 11.7 g/dL (12.9-16.9); Immature Platelets 3.7 % (1.1-6.1); Lymphocytes # 0.6 K/mcL (0.6-4.6); Lymphocytes % 12.3 %; Mean Corpuscular Hemoglobin 31.5 pg (28.0-33.3); Mean Corpuscular Volume 98.4 fL (83.0-100.0); Monocytes # 0.6 K/mcL (0.0-1.3); Monocytes % 12.7 %; Neutrophils # 3.5 K/mcL (1.6-8.9); Red Blood Count 3.72 M/mcL (4.19-5.50); Red Cell Distribution Width 15.9 % (11.5-14.5); Segmented Neutrophils % 70.6 %
[2018-01-01 03:01] LABS: Platelet Count 92 K/mcL (140-400)
[2018-01-01 03:08] LABS: INR 1.1; Prothrombin Time 11.9 Seconds (9.4-12.1)
[2018-01-01 03:16] LABS: Alanine Aminotransferase 15 Units/L (7-52); Albumin 3.4 g/dL (3.5-5.7); Alkaline Phosphatase 120 Units/L (34-104); Aspartate Amino Transferase 21 Units/L (13-39); BUN/Creatinine Ratio 15 (6-26); Bilirubin,Total 0.6 mg/dL (0.3-1.0); Blood Urea Nitrogen 17 mg/dL (8-23); Calcium 8.9 mg/dL (8.6-10.3); Carbon Dioxide 24 mEq/L (23-29); Chloride 110 mEq/L (98-107); Globulin 3.3 g/dL (2.4-3.5); Glucose 114 mg/dL (70-105); Magnesium 2.5 mg/dL (1.6-2.6); Osmolality,Calculated 292 (280-300); Potassium 4.6 mEq/L (3.5-5.1); Sodium 140 mEq/L (136-145); Total Protein 6.7 g/dL (6.4-8.9); eGFR For African Americans > 60 (> 60); eGFR For Non-African Americans > 60 (> 60)
[2018-01-01] MEDS: *HR* Enoxaparin 30 MG/0.3 ML SYRINGE SQ SCH (06:07)
[2018-01-01] MEDS: Insulin LISPRO 300 UNITS/3 ML VIAL SQ SCH ×4 (06:32→23:01)
[2018-01-01] MEDS: Carbidopa/Levodopa 25/250 TABLET PO SCH ×3 (08:29→20:34)
--- NOTE | 2018-01-01 09:58 | Electrocardiograph Report ---
[place] [id number] Test Date: 2018-01-01 Pat Name: Jose R Otto Department: 113 Room: 3B12 Gender: M Hospital Manager: RYLAND : 1945 Requested By: Petty Head Order Number: [id number] Reading MD: Karolyn Ramirez Measurements Intervals [place] Rate: 98 P: 69 MS: 203 QRS: -9 QRSD: 105 T: 88 QT: 353 QTc: 408 Interpretive Statements SINUS RHYTHM NONSPECIFIC ST-T WAVE CHANGES Electronically Signed On 01-01-2018 9:56:54 EST by Karolyn Ramirez
[2018-01-01] MEDS: Acetaminophen 325 MG TABLET PO PRN ×2 (11:15→23:00)
[2018-01-01] MEDS ORDERED: Ondansetron 4 MG/2 ML VIAL IVP PRN (12:22)
[2018-01-01] MEDS ORDERED: Stomatitis Mixture 5 ML UDC PO PRN (13:19)
--- NOTE | 2018-01-01 13:19 | Internal Med Progress Note ---
Date of Encounter: 01/01/18 Time of Encounter: 12:00 - Assessment and plan (1) Common bile duct calculi Current Visit: Yes Status: Acute Assessment and plan: Acute. S/P cholecystectomy. CT A/P @ [facility] noted 1.2 cm stone in the distal CBD upstream intrahepatic and extrahepatic biliary dilation. LFT WNL @ [facility]. Re-check. No evidence of sepsis. Hold PO erythromycin. Blood cultures x2 ordered. NPO. GI consult w/plan for ERCP in a.m. (2) Constipation Current Visit: Yes Status: Acute Assessment and plan: Acute. Pt. reports 2 weeks abdominal pain/cramping. CT A/P @ [facility] notes colonic diverticulosis without acute diverticulitis, large amount of rectal stool with rectal dilation. Senna, Colace, Miralax given this a.m. Normal bowel sounds on exam. Reports minimal gas. Continue aggressive bowel regimen, milk/ molasses enema. Monitor I&O. Qualifiers: Constipation type: unspecified constipation type Qualified Code(s): K59.00 - Constipation, unspecified (3) Coccyx pain Current Visit: Yes Status: Acute Assessment and plan: Acute. Blanchable area on coccyx noted on exam w/o skin breakdown. Turns Q2HR. (4) CAD (coronary artery disease) Current Visit: Yes Status: Chronic Assessment and plan: Per hx. Monitor. Continue Pravastatin. Continuous tele. Qualifiers: Coronary Disease-Associated Artery/Lesion type: [place] artery [place] vs. transplanted heart: [place] heart Associated angina: angina presence unspecified Qualified Code(s): I25.10 - Atherosclerotic heart disease of [place] coronary artery without angina pectoris (5) Anemia Current Visit: Yes Status: Chronic Assessment and plan: Per hx. Anemia of unknown etiology. Hgb/Hct 11.7/36.6 today, down from 13.5/ 40.5 on 12/02/17 and 16.6/47.3 on 03/14/17. Fecal hemoccult. H/H a.m. Iron profile. GI consult w/ERCP in a.m. Qualifiers: Anemia type: unspecified type Qualified Code(s): D64.9 - Anemia, unspecified (6) Hx of fall Current Visit: Yes Status: Chronic Assessment and plan: Per hx. Falls at [facility]CF. Fall/safety precautions. (7) HTN (hypertension) Current Visit: Yes Status: Chronic Assessment and plan: Per hx. No current medication. Monitor VS. Qualifiers: Hypertension type: essential hypertension Qualified Code(s): I10 - Essential (primary) hypertension (8) HLD (hyperlipidemia) Current Visit: Yes Status: Chronic Assessment and plan: Per hx. Continue pravastatin. Lipid panel a.m. Qualifiers: Hyperlipidemia type: pure hypercholesterolemia Qualified Code(s): E78.00 - Pure hypercholesterolemia, unspecified; E78.0 - Pure hypercholesterolemia (9) Small cell lung cancer Current Visit: Yes Status: Chronic Assessment and plan: Per hx. Chem/rad txs completed 09/08. Pt. f/u as OP. Qualifiers: Laterality: unspecified laterality Qualified Code(s): C34.90 - Malignant neoplasm of unspecified part of unspecified bronchus or lung (10) COPD (chronic obstructive pulmonary disease) Current Visit: Yes Status: Chronic Assessment and plan: Per hx. Stable, no flare-up. Qualifiers: COPD type: chronic bronchitis Chronic bronchitis type: simple Qualified Code(s): J41.0 - Simple chronic bronchitis (11) Diabetes Current Visit: Yes Status: Chronic Assessment and plan: Per hx. Hold Glucophage, Tradjenta. LDCI sliding scale. Hypoglycemic protocol. A1c a.m. labs. BG Q6 d/t NPO. Qualifiers: Diabetes mellitus type: type 2 Diabetes mellitus complication status: without complication Qualified Code(s): E11.9 - Type 2 diabetes mellitus without complications (12) Parkinson disease Current Visit: Yes Status: Chronic Assessment and plan: Per hx. Continue carbidopa/levodopa. (13) Cirrhosis Current Visit: Yes Status: Chronic Assessment and plan: Per hx. Unknown etiology from pt./. CT A/P @ [facility] noted cirrhosis and splenomegaly to 15.5 cm length. Hepatic panel. Qualifiers: Hepatic cirrhosis type: unspecified hepatic cirrhosis Ascites presence: without ascites Qualified Code(s): K74.60 - Unspecified cirrhosis of liver (14) Abdominal aortic aneurysm (AAA) 3.0 cm to 5.5 cm in diameter in male Current Visit: Yes Status: Chronic Assessment and plan: Per hx. W/o rupture/Stable. CT A/P @ [facility] noted mildly in aneurysmal infrarenal abdominal aorta measuring 3.1 x 3 cm. Otherwise major vessels are patent including portal veins and splenic vein. Monitor. F/U w/vascular surgery OP. (15) Elevated lactic acid level Current Visit: Yes Status: Resolved Assessment and plan: Acute on admission. Resolved. 1.4 now. Monitor. (16) DVT prophylaxis Current Visit: Yes Status: Acute Assessment and plan: Lovenox 30 mg 0600. Monitor for bleeding. - Time Spent With Patient less than 15 minutes - Subjective Interval history: Pt. new to me. Information taken from chart review, discussion w/, and pt. report. Pt. examined at bedside. Pt. reports continuing lower abdominal pain, likely r/t current constipation versus dx of incidental CBD stone. Denies recent BM, reports anorexia. Pt. denies use of opioids for pain at ECF, citing only Tylenol. Reports hx of SCLC w/chemo/rad tx completed in 09/08. No further onc tx planned. Hx of falls at ECF. Reports use of walker. Reports painful area on coccyx, citing bedbound status at ECF. Chronic anemia but denies unusual bleeding. - Constitutional Vitals: Temp Pulse Resp BP Pulse Ox 98.0 F 92 15 107/63 93 01/01/18 10:56 01/01/18 10:56 01/01/18 10:56 01/01/18 10:56 01/01/18 10:56 General appearance: Present: cooperative, mild distress (Abdominal pain in lower abdomen), A&O X 3, answers questions appropriately - Head Head exam: Present: atraumatic, normocephalic - Eye Eye exam: Present: PERRL, conjuntiva pink, sclera anicteric Pupils: Present: PERRL - ENT ENT exam: Present: normal exam - Neck Neck exam general surgery: Present: normal inspection, supple, trachea midline. Absent: lymphadenopathy - Respiratory Respiratory exam: Present: CTAB. Absent: accessory muscle use, rales, rhonchi, wheezes - Cardiovascular Cardiovascular exam: Present: RRR, +S1, +S2. Absent: diastolic murmur, gallop, rubs, systolic murmur - GI/Abdominal GI/Abdominal exam: Present: guarding (Lower abdomen), normal bowel sounds, soft , tenderness (Lower abdomen), no peritoneal signs. Absent: distended - Rectal Rectal exam: Present: deferred - Additional comments: exam deferred. - Extremities Exam Extremities exam: Present: warm, radial pulses palpable and symmetrical. Absent : calf tenderness, cyanotic, pedal edema - Back Exam Back exam: Present: normal inspection - Neurological Exam Neurological exam: Present: CN II-XII intact, oriented X3, no focal deficits. Absent: pronater drift, facial droop, speech deficit - Psychiatric Psychiatric exam: Present: flat affect - Skin Skin exam: Present: dry, erythema (Coccyx has blanchable area), intact Internal Medicine: Result - Labs CBC & Chem 7: 01/01/18 02:49 01/01/18 02:49 Labs: Short CBC 01/01/18 Range/Units 02:49 WBC 5.0 (4.3-11.1) K/mcL Hgb 11.7 L (12.9-16.9) g/dL Hct 36.6 L (37.5-50.1) % Plt Count 92 L (140-400) K/mcL Neutrophils # 3.5 (1.6-8.9) K/mcL BMP 01/01/18 02:49 Sodium 140 Potassium 4.6 Chloride 110 H Carbon Dioxide 24 BUN 17 Creatinine 1.17 Glucose 114 H Calcium 8.9 Liver Function 01/01/18 Range/Units 02:49 Total Bilirubin 0.6 (0.3-1.0) mg/dL AST 21 (13-39) Units/L ALT 15 (7-52) Units/L Alkaline Phosphatase 120 H (34-104) Units/L Albumin 3.4 L (3.5-5.7) g/dL - ABG Interpretation ABG results: PT/INR, D-dimer PT 11.9 Seconds (9.4-12.1) 01/01/18 02:49 - EKG Interpretation EKG shows normal: sinus rhythm - Prior EKG Data Prior EKG available for review: no EKG comments: 01/01/18 13:27 EKG dated 01/01/18 shows sinus rhythm with non-specific ST-T wave changes. Consult Discharge Plan - Plan Referrals: Soto Naqvi MD [Primary Care Provider] -
[2018-01-01] MEDS ORDERED: Milk and Molasses Enema 200 ML RC ONE (14:20)
--- NOTE | 2018-01-01 16:13 | Gastroenterology Consult Note ---
<Kristen Bellamy - Last Filed: 01/01/18 16:28> Date of Encounter: 01/01/18 Time of Encounter: 09:45 - Assessment and plan (1) Common bile duct calculi Current Visit: Yes Status: Acute Assessment and plan: Pt has a history of SCLC, he presents with abdominal pain and anorexia. CT showed CBD stone, will proceed with ERCP tomorrow. Discussed risks including perforation, bleeding, infection and pancreatitis with pt, his and daughter , they verbalize understanding and are in agreement with treatment plan. - Time Spent With Patient Total time spent is greater than 50% in coordination of care (as documented) at patient's floor/unit and/or counseling patient: GI History of Present Illness - Data of Consult Patient: known to practice within the last 3 years Consult date: 01/01/18 Requesting Physician: Petty Head MD - Consult Narrative Reason for consult: CBD stone History of present illness: Mr. Otto is a 72 year old male with a history of SD, CAD, DM, CHF, cirrhosis, SCLC s/p chemo-rt and pci completed late 2016. He was transferred from [facility] for incidental CBD stone needing ERCP. Due to his recurrent falls, he had been at a SNF for 2 weeks. He was sent to [facility] ED after c/o generalized abdominal discomfort, poorly localized in the last few days that was associated constipation and anorexia. He also reports weight loss and constipation. He denies fever or chills or n/v. At outside ED, he received CT A/P which noted stool impaction and a CBD measuring 1.2 with biliary diltation. CXR was w/o acute findings - noted chronic changes. He denies any bloody or tarry stools. LFTs were WNL except for alk phos which was 120. Colonoscopy: EGD: 12/10 Dr Schulz esophagitis, Grade 1 esophageal varices, 3 cm HH, mild schatzki ring NSAIDS/ASA: asa 81 mg Anticoagulants: lovenox Past Med Surg Social Fam HX - Past Medical History Medical history: atrial fibrillation, cancer, cardiomyopathy, cirrhosis, CHF, COPD, coronary artery disease, diabetes, GERD, hyperlipidemia, hypertension, myocardial infarction, renal disease, other Psychiatric history: no psych history - Past Surgical History Surgical History: appendectomy, cataract, cholecystectomy, coronary bypass (CABG ) - Social History Smoking Status: Former smoker Smokeless Tobacco Status: No Alcohol use: none Drug use: none - Family History Father Living Status: Mother Living Status: Review of Systems: GI: as per [place] GENERAL: denies fever, has some chills EYES: denies yellow discoloration ENT: denies pain with swallowing or difficulty swallowing CARDIO: denies chest pain, palpitations RESP: Shortness of breath with exertion : denies change in color of urine NEURO: weakness HEME: bruising and skin tears to bl arms MS: chronic back and joint pain DERM: denies rash or itching PSYCH: history of anxiety and depression - Constitutional Vitals: Temp Pulse Resp BP Pulse Ox 98.0 F 92 15 107/63 93 01/01/18 10:56 01/01/18 10:56 01/01/18 10:56 01/01/18 10:56 01/01/18 10:56 Exam: CONSTITUTIONAL:~alert, but lethargic, no acute distress.~HEAD:~normocephalic.~ EYES:~no jaundice.~NECK:~no obvious swelling.~HEART:~regular rate and rhythm, no murmurs.~LUNGS:~bilateral fair air entry.~ABDOMEN:~non distended, soft, tender to all quadrants, ~RECTAL EXAM:~Deferred.~EXTREMITIES:~no clubbing, cyanosis, pallor noted 1+ BLE edema.~SKIN:~no stigmata of chronic liver disease. ~NEUROLOGIC:~no obvious focal defect.~~~~ Results - Labs CBC & Chem 7: 01/01/18 02:49 01/01/18 02:49 Labs: Last Result Calcium 8.9 mg/dL (8.6-10.3) 01/01/18 02:49 Entire Visit Hgb 11.7 g/dL (12.9-16.9) L 01/01/18 02:49 Hct 36.6 % (37.5-50.1) L 01/01/18 02:49 PT 11.9 Seconds (9.4-12.1) 01/01/18 02:49 Total Bilirubin 0.6 mg/dL (0.3-1.0) 01/01/18 02:49 AST 21 Units/L (13-39) 01/01/18 02:49 ALT 15 Units/L (7-52) 01/01/18 02:49 - ABG ABG results: PT/INR, D-dimer PT 11.9 Seconds (9.4-12.1) 01/01/18 02:49 Consult Discharge Plan - Plan Referrals: Soto Naqvi MD [Primary Care Provider] - <Camelia Cordova - Last Filed: 01/02/18 14:08> Date of Encounter: 01/01/18 Time of Encounter: 12:20 - Time Spent With Patient Total time spent is greater than 50% in coordination of care (as documented) at patient's floor/unit and/or counseling patient: GI History of Present Illness - Data of Consult Requesting Physician: Petty Head MD - Consult Narrative History of present illness: Mr. Otto is a 72 year old male - Constitutional Vitals: Temp Pulse Resp BP Pulse Ox 97.9 F 89 16 109/80 92 01/02/18 13:58 01/02/18 13:58 01/02/18 13:58 01/02/18 13:58 01/02/18 13:58 Results - Labs CBC & Chem 7: 01/02/18 04:02 01/02/18 04:02 Labs: Last Result Calcium 8.2 mg/dL (8.6-10.3) L 01/02/18 04:02 Iron 41 mcg/dL (65-175) L 01/01/18 14:00 % Saturation 17 % (20-55) L 01/01/18 14:00 Transferrin 171 mg/dL (203-362) L 01/01/18 14:00 Triglycerides 110 mg/dL (< 150) 01/02/18 04:02 Stool Occult Blood Positive (Negative) A 01/01/18 16:25 Entire Visit Hgb 10.4 g/dL (12.9-16.9) L 01/02/18 04:02 Hct 32.7 % (37.5-50.1) L 01/02/18 04:02 PT 11.9 Seconds (9.4-12.1) 01/01/18 02:49 Total Bilirubin 0.5 mg/dL (0.3-1.0) 01/02/18 04:02 AST 19 Units/L (13-39) 01/02/18 04:02 ALT 5 Units/L (7-52) L 01/02/18 04:02 - ABG ABG results: PT/INR, D-dimer PT 11.9 Seconds (9.4-12.1) 01/01/18 02:49 - Attending Attestation I examined this patient and my medical decision-making was reviewed with the BUILDING AND CONSTRUCTION MANAGER. I agree with the documented findings, disposition and treatment plan as described except to the extent set forth below. Pt with large CBD stones. CT form last and from [facility] reviewed with Dr Brewster ( radiology)
[2018-01-01] MEDS: Pantoprazole 40 MG VIAL IVP SCH (16:50)
[2018-01-01 21:16] LABS: % Iron Saturation 17 % (20-55); Iron 41 mcg/dL (65-175); Transferrin 171 mg/dL (203-362)
[2018-01-02 04:28] LABS: Basophils % 0.2 %; Eosinophils # 0.1 K/mcL (0.0-0.6); Eosinophils % 1.7 %; Hematocrit 32.7 % (37.5-50.1); Hemoglobin 10.4 g/dL (12.9-16.9); Immature Granulocytes % 0.6 % (0-4); Lymphocytes # 0.6 K/mcL (0.6-4.6); Lymphocytes % 12.1 %; Mean Corpuscular HGB Conc 31.8 g/dL (31.6-35.5); Mean Corpuscular Hemoglobin 31.1 pg (28.0-33.3); Mean Corpuscular Volume 97.9 fL (83.0-100.0); Mean Platelet Volume 10.9 fL (9.4-12.4); Monocytes # 0.5 K/mcL (0.0-1.3); Monocytes % 11.4 %; Neutrophils # 3.5 K/mcL (1.6-8.9); Nucleated Red Blood Cells 1.5 /100 WBC (0); Red Blood Count 3.34 M/mcL (4.19-5.50); Red Cell Distribution Width 16.4 % (11.5-14.5)
[2018-01-02 04:29] LABS: Platelet Count 81 K/mcL (140-400)
[2018-01-02 04:34] LABS: Hemoglobin A1C 5.3 %
[2018-01-02 04:49] LABS: Alanine Aminotransferase 5 Units/L (7-52); Albumin 2.9 g/dL (3.5-5.7); Alkaline Phosphatase 103 Units/L (34-104); Aspartate Amino Transferase 19 Units/L (13-39); BUN/Creatinine Ratio 17 (6-26); Bilirubin,Direct 0.1 mg/dL (0.0-0.2); Bilirubin,Indirect 0.4 mg/dL (0.0-1.2); Bilirubin,Total 0.5 mg/dL (0.3-1.0); Blood Urea Nitrogen 18 mg/dL (8-23); Calcium 8.2 mg/dL (8.6-10.3); Carbon Dioxide 22 mEq/L (23-29); Chloride 112 mEq/L (98-107); Chol/HDL Ratio 3.8 (0-4.9); Cholesterol 105 mg/dL (< 200); Globulin 2.9 g/dL (2.4-3.5); Glucose 109 mg/dL (70-105); HDL Cholesterol 28 mg/dL (40-59); LDL Cholesterol,Calculated 55 mg/dL (0-99); Osmolality,Calculated 292 (280-300); Potassium 3.9 mEq/L (3.5-5.1); Sodium 140 mEq/L (136-145); Total Protein 5.8 g/dL (6.4-8.9); Triglycerides 110 mg/dL (< 150); eGFR For African Americans > 60 (> 60); eGFR For Non-African Americans > 60 (> 60)
[2018-01-02] MEDS: *HR* Enoxaparin 30 MG/0.3 ML SYRINGE SQ SCH (04:49)
[2018-01-02] MEDS: Insulin LISPRO 300 UNITS/3 ML VIAL SQ SCH ×3 (05:03→18:15)
[2018-01-02] MEDS: Pantoprazole 40 MG VIAL IVP SCH ×2 (05:23→17:35)
[2018-01-02] MEDS: Carbidopa/Levodopa 25/250 TABLET PO SCH ×3 (09:37→20:56)
[2018-01-02] MEDS ORDERED: Ketorolac 30 MG/ML VIAL IVP ONE (10:17)
[2018-01-02] MEDS: Albuterol 2.5 MG/3 ML NEBULIZER IH ONE ×2 (14:00→15:17)
--- NOTE | 2018-01-02 14:05 | Anesthesia Evaluation PreOp ---
Date of Encounter: 01/02/18 Time of Encounter: 14:00 - Past History Planned Operation: ERCP Cardiac History: NH, CHF, HTN, Hyperlipidemia, Cardiac Stent Pulmonary History: COPD VEGETABLE HANDLER History: Other (Parkinson's) Other Medical History: Diabetes Type II Alcohol Use: none Drug use: none Medications and Allergies Carbidopa/Levodopa [Carbidopa-Levodopa 25-250 Tab] 1 tab PO TID 03/14/17 [ History] Pravastatin Sodium [Pravachol] 40 mg PO DAILY 03/14/17 [History] Tamsulosin [Flomax] 0.4 mg PO DAILY 03/14/17 [History] Vit A/Vit C/Vit E/Zinc/Copper [Preservision Areds Tablet] 2 tab PO DAILY [History] metFORMIN [Glucophage] 500 mg PO DAILY 03/14/17 [History] Aspirin Enteric Coated [Aspirin EC] 325 mg PO DAILY tablet. 03/15/17 [Rx] Magic Mouthwash [Magic Mouthwash BLM] 10 ml PO QID PRN #240 ml 05/04/17 [Rx] Linagliptin [Tradjenta] 5 mg PO DAILY 06/12/17 [History] Benzonatate [Tessalon] 100 mg PO TID PRN #60 capsule 11/03/17 [Rx] Guaifenesin [Mucinex] 600 mg PO BID #30 tab.er.12h 11/03/17 [Rx] Furosemide [Lasix] 20 mg PO BID #60 tablet 12/02/17 [Rx] Omeprazole [PriLOSEC] 40 mg PO BIDAC #30 capsule. 12/02/17 [Rx] Potassium Chloride [K-Tab ER] 10 meq PO DAILY #30 tablet.er 12/02/17 [Rx] Erythromycin [Ector-Tab] 250 mg PO BID 12/29/17 [History] Ipratropium/Albuterol Neb [Duoneb] 3 ml IH Q4HR PRN 12/29/17 [History] Magnesium Hydroxide [Milk of Magnesia] 30 ml PO DAILY PRN 12/29/17 [History] Lactose-Reduced Food [Ensure Plus] 1 bottle PO TID 01/01/18 [History] Potassium Chloride [K-Tab ER] 10 meq PO DAILY 01/01/18 [History] 3 Allergy/AdvReac Type Severity Reaction Status Date / Time atorvastatin [From Lipitor] AdvReac Muscle Pain Verified 12/29/17 15:28 prochlorperazine AdvReac Hypertensio Verified 12/29/17 15:28 n - Meds/Allergy Pre-op Review Medications Reviewed: Yes Allergies Reviewed: Yes Beta Blockers on Current Med List: No Anesthesia Results - Labs 01/02/18 04:02 01/02/18 04:02 - Imaging EKG: report reviewed (SR) Additional studies: EF 35% Anesthesia Exam O2 Sat O2 Sat by Pulse Oximetry 92 O2 Sat by Pulse Oximetry 94 O2 Sat by Pulse Oximetry 96 O2 Sat by Pulse Oximetry 96 O2 Sat by Pulse Oximetry 90 O2 Sat by Pulse Oximetry 88 O2 Sat by Pulse Oximetry 93 O2 Sat by Pulse Oximetry 90 Vital Signs Temp Pulse Resp BP Pulse Ox 97.8 F 94 16 107/71 93 01/01/18 01:39 01/01/18 01:39 01/01/18 01:39 01/01/18 01:39 01/01/18 01:39 Height: 6'0 Weight: 170 lbs NPO (# of Hours): MN Pain Scale: 0 - HEENT Pupil (Motor): Pupils equal, EOMI Mallampati: III Oral Opening: Greater than 3 - VEGETABLE HANDLER LOC: Oriented (Patient Blind) VEGETABLE HANDLER Motor: Normal RUE, Normal LUE, Normal RLE, Normal LLE, Normal Face VEGETABLE HANDLER Sensory: Normal: RUE, LUE, RLE, LLE, Face - Cardiac Rhythm: Regular Murmur: None JVD: No Carotid Bruit: No - Pulmonary Breath Sounds: bilateral Clear Respiratory Effort: Symmetrical Anesthesia Assess/Plan ASA Score: 3 (HTN CAD Cardiomyopathy) Modified Avani Scale for Level of Consciousness: Cooperative, oriented, and tranquil Anesthetic Plan: General Monitoring Plan: Standard Monitors Recovery Plan: PACU (Discussed GA, agrees to proceed)
[2018-01-02] MEDS ORDERED: Albuterol 2.5 MG/3 ML NEBULIZER ONE (14:08)
[2018-01-02] MEDS ORDERED: *HR* Propofol 200 MG/20 ML VIAL IVP ONE (14:20)
[2018-01-02] MEDS ORDERED: Lidocaine -MPF 2% 2 ML VIAL ONE (14:21)
[2018-01-02] MEDS ORDERED: *HR* FentaNYL (PF) 100 MCG/2 ML VIAL ONE ×2 (14:21→15:18)
[2018-01-02] MEDS ORDERED: *HR* Succinylcholine 200 MG/10 ML VIAL IVP ONE (14:21)
[2018-01-02] MEDS ORDERED: Ondansetron 4 MG/2 ML VIAL ONE (14:21)
[2018-01-02] MEDS ORDERED: Lidocaine -MPF 4% 5 ML AMPUL ONE (14:28)
[2018-01-02] MEDS ORDERED: *HR* PHENYLEPHRINE 1,000 MCG/10 ML SYRINGE IVP ONE (15:05)
--- NOTE | 2018-01-02 15:47 | Internal Med Progress Note ---
Date of Encounter: 01/02/18 Time of Encounter: 12:30 - Assessment and plan (1) Choledocholithiasis Current Visit: Yes Status: Acute Assessment and plan: s/p cholecystectomy. Presnted to OSH with ABD pain; OSH ABD CT WITH 1.2 cm s/p cholecystectomy with upstream intrahepatic and extrahepatic biliary dilation. LFT WNL. Status post ERCP with complete removal of stones with biliary sphincterotomy, successful dilation of CBD and sweeping of biliary tree. Stent placed to CBD and into the ventral pancreatic duct. Will need EGD in 4-6 weeks for stent removal. (2) CAD (coronary artery disease) Current Visit: Yes Status: Chronic Assessment and plan: Per hx. S/p remote CABG. Aymptomatic. Denied chest pain. Cont home ASA, statin Qualifiers: Coronary Disease-Associated Artery/Lesion type: [place] artery [place] vs. transplanted heart: ruby heart Associated angina: angina presence unspecified Qualified Code(s): I25.10 - Atherosclerotic heart disease of [place] coronary artery without angina pectoris (3) Abdominal aortic aneurysm (AAA) 3.0 cm to 5.5 cm in diameter in male Current Visit: Yes Status: Chronic Assessment and plan: Per hx. W/o rupture/Stable. CT A/P @ [facility] noted mildly in aneurysmal infrarenal abdominal aorta measuring 3.1 x 3 cm. Otherwise major vessels are patent including portal veins and splenic vein. Monitor. F/U w/vascular surgery OP. (4) Small cell lung cancer Current Visit: Yes Status: Chronic Assessment and plan: Per hx. Chem/rad txs completed 09/08. Pt. f/u as OP. Qualifiers: Laterality: unspecified laterality Qualified Code(s): C34.90 - Malignant neoplasm of unspecified part of unspecified bronchus or lung (5) DVT prophylaxis Current Visit: Yes Status: Acute Assessment and plan: Lovenox - Subjective Interval history: Seen and examined at bedside, is new to me. Information obtained from chart review, patient report family at bedside. Patient says he still has some mild abdominal pain, overall improved and tolerable. Family reports that [facility] coming [facility] and they are requesting PT/OT consultation. - Constitutional Vitals: Temp Pulse Resp BP Pulse Ox 97.9 F 89 16 109/80 92 01/02/18 13:58 01/02/18 13:58 01/02/18 13:58 01/02/18 13:58 01/02/18 13:58 General appearance: Present: cooperative, A&O X 3, answers questions appropriately - Head Head exam: Present: atraumatic, normocephalic - Eye Eye exam: Present: PERRL, conjuntiva pink, sclera anicteric Pupils: Present: PERRL - Neck Neck exam general surgery: Present: supple, trachea midline. Absent: lymphadenopathy - Respiratory Respiratory exam: Present: CTAB. Absent: accessory muscle use, rales, rhonchi, wheezes - Cardiovascular Cardiovascular exam: Present: RRR, +S1, +S2. Absent: diastolic murmur, gallop, rubs, systolic murmur - GI/Abdominal GI/Abdominal exam: Present: normal bowel sounds, soft, no peritoneal signs. Absent: distended, tenderness - Extremities Exam Extremities exam: Present: warm, radial pulses palpable and symmetrical. Absent : calf tenderness, cyanotic, pedal edema - Neurological Exam Neurological exam: Present: CN II-XII intact, oriented X3, no focal deficits. Absent: pronater drift, facial droop, speech deficit - Skin Skin exam: Present: dry, intact Internal Medicine: Result - Labs CBC & Chem 7: 01/02/18 04:02 01/02/18 04:02 Labs: Short CBC 01/02/18 Range/Units 04:02 WBC 4.7 (4.3-11.1) K/mcL Hgb 10.4 L (12.9-16.9) g/dL Hct 32.7 L (37.5-50.1) % Plt Count 81 L (140-400) K/mcL Neutrophils # 3.5 (1.6-8.9) K/mcL BMP 01/02/18 04:02 Sodium 140 Potassium 3.9 Chloride 112 H Carbon Dioxide 22 L BUN 18 Creatinine 1.05 Glucose 109 H Calcium 8.2 L Liver Function 01/02/18 Range/Units 04:02 Total Bilirubin 0.5 (0.3-1.0) mg/dL Direct Bilirubin 0.1 (0.0-0.2) mg/dL AST 19 (13-39) Units/L ALT 5 L (7-52) Units/L Alkaline Phosphatase 103 (34-104) Units/L Albumin 2.9 L (3.5-5.7) g/dL - ABG Interpretation ABG results: PT/INR, D-dimer PT 11.9 Seconds (9.4-12.1) 01/01/18 02:49 Consult Discharge Plan - Plan Referrals: Soto Naqvi MD [Primary Care Provider] -
[2018-01-02] MEDS ORDERED: Indomethacin 50 MG SUPP.RECT RC ONE (16:35)
--- NOTE | 2018-01-02 17:20 | Anesthesia Evaluation Post Op ---
Date of Encounter: 01/02/18 Time of Encounter: 16:00 - Vital Signs Vital Signs: Vital Signs/O2 Sat/Glucose, Most Current Temp Pulse Resp BP Pulse Ox 01/02/18 16:18 97.4 F L 93 20 126/85 94 01/02/18 16:08 99 16 124/80 100 01/02/18 15:58 104 18 114/90 100 01/02/18 15:52 97.4 F L 103 16 123/91 97 01/02/18 13:58 97.9 F 89 16 109/80 92 - Lungs Lungs: Clear Ascult./Percussion - Airway Airway: Non-obstructed - Cardiovascular Regular Rate - Mental Status Mental Status: Alert & Oriented, Answers Appropriately - Pain Pain Scale: 0 - Nausea Vomiting Nausea Vomiting: Not Present - Hydration Hydration: Ice chips - Discharge PostOp Status: Transfer Patient to floor
[2018-01-02] MEDS: Furosemide 20 MG TABLET PO SCH (20:56)
[2018-01-03] MEDS: Insulin LISPRO 300 UNITS/3 ML VIAL SQ SCH ×5 (00:03→23:32)
[2018-01-03 04:46] LABS: Basophils % 0.4 %; Immature Granulocytes % 0.4 % (0-4); Red Cell Distribution Width 16.1 % (11.5-14.5)
[2018-01-03 04:48] LABS: Eosinophils # 0.1 K/mcL (0.0-0.6); Eosinophils % 1.7 %; Hemoglobin 11.4 g/dL (12.9-16.9); Immature Platelets 3.4 % (1.1-6.1); Lymphocytes # 0.6 K/mcL (0.6-4.6); Lymphocytes % 11.6 %; Mean Corpuscular HGB Conc 31.7 g/dL (31.6-35.5); Mean Corpuscular Hemoglobin 31.2 pg (28.0-33.3); Mean Corpuscular Volume 98.6 fL (83.0-100.0); Mean Platelet Volume 10.1 fL (9.4-12.4); Monocytes # 0.5 K/mcL (0.0-1.3); Monocytes % 10.2 %; Neutrophils # 3.6 K/mcL (1.6-8.9); Nucleated Red Blood Cells 0.6 /100 WBC (0); Platelet Count 82 K/mcL (140-400); Red Blood Count 3.65 M/mcL (4.19-5.50); Segmented Neutrophils % 75.7 %
[2018-01-03 05:18] LABS: Alanine Aminotransferase 5 Units/L (7-52); Albumin 3.2 g/dL (3.5-5.7); Albumin/Globulin Ratio 1.1 (1.1-2.2); Alkaline Phosphatase 111 Units/L (34-104); Aspartate Amino Transferase 20 Units/L (13-39); BUN/Creatinine Ratio 20 (6-26); Bilirubin,Direct 0.2 mg/dL (0.0-0.2); Bilirubin,Indirect 0.7 mg/dL (0.0-1.2); Bilirubin,Total 0.9 mg/dL (0.3-1.0); Blood Urea Nitrogen 21 mg/dL (8-23); Calcium 8.6 mg/dL (8.6-10.3); Carbon Dioxide 22 mEq/L (23-29); Chloride 109 mEq/L (98-107); Glucose 124 mg/dL (70-105); Osmolality,Calculated 294 (280-300); Potassium 4.1 mEq/L (3.5-5.1); Sodium 140 mEq/L (136-145); Total Protein 6.2 g/dL (6.4-8.9); eGFR For African Americans > 60 (> 60); eGFR For Non-African Americans > 60 (> 60)
[2018-01-03] MEDS: Pantoprazole 40 MG VIAL IVP SCH ×2 (06:00→17:43)
[2018-01-03] MEDS: *HR* Enoxaparin 40 MG/0.4 ML SYRINGE SQ SCH (06:05)
[2018-01-03] MEDS: Acetaminophen 325 MG TABLET PO PRN ×2 (09:30→20:47)
[2018-01-03] MEDS: Furosemide 20 MG TABLET PO SCH ×2 (09:31→20:48)
[2018-01-03] MEDS: Carbidopa/Levodopa 25/250 TABLET PO SCH ×3 (09:31→20:48)
[2018-01-03] MEDS: Aspirin Enteric Coated 325 MG Tablet PO SCH (09:31)
--- NOTE | 2018-01-03 13:48 | Internal Med Progress Note ---
Date of Encounter: 01/03/18 Time of Encounter: 13:46 - Assessment and plan (1) Choledocholithiasis Current Visit: Yes Status: Acute Assessment and plan: s/p cholecystectomy. Presnted to OSH with ABD pain; OSH ABD CT WITH 1.2 cm s/p cholecystectomy with upstream intrahepatic and extrahepatic biliary dilation. LFT WNL. Status post ERCP with complete removal of stones with biliary sphincterotomy, successful dilation of CBD and sweeping of biliary tree. Stent placed to CBD and ventral pancreatic duct. Will need EGD in 4-6 weeks for stent removal. (2) CAD (coronary artery disease) Current Visit: Yes Status: Chronic Assessment and plan: Per hx. S/p remote CABG. Aymptomatic. Denied chest pain. Cont home ASA, statin Qualifiers: Coronary Disease-Associated Artery/Lesion type: [place] artery [place] vs. transplanted heart: [place] heart Associated angina: angina presence unspecified Qualified Code(s): I25.10 - Atherosclerotic heart disease of [place] coronary artery without angina pectoris (3) Abdominal aortic aneurysm (AAA) 3.0 cm to 5.5 cm in diameter in male Current Visit: Yes Status: Chronic Assessment and plan: Per hx. W/o rupture/Stable. CT A/P @ [facility] noted mildly in aneurysmal infrarenal abdominal aorta measuring 3.1 x 3 cm. Otherwise major vessels are patent including portal veins and splenic vein. Monitor. F/U w/vascular surgery OP. (4) Small cell lung cancer Current Visit: Yes Status: Chronic Assessment and plan: Per hx. Chem/rad txs completed 09/08. Pt. f/u as OP. Qualifiers: Laterality: unspecified laterality Qualified Code(s): C34.90 - Malignant neoplasm of unspecified part of unspecified bronchus or lung (5) Parkinson disease Current Visit: Yes Status: Chronic Assessment and plan: Per hx. Continue carbidopa/levodopa. (6) DVT prophylaxis Current Visit: Yes Status: Acute Assessment and plan: Lovenox - Subjective Interval history: Seen and examined at bedside; says he feels a little better. Still having mild abdominal pain. He complains of constipation and requesting stool softener and/ or laxative. No chest pain or shortness of breath. Daughter updated at bedside. 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 Absent: lymphadenopathy - Respiratory Respiratory exam: Present: CTAB. Absent: accessory muscle use, rales, rhonchi, wheezes - Cardiovascular Cardiovascular exam: Present: RRR, +S1, +S2. Absent: diastolic murmur, gallop, rubs, systolic murmur - GI/Abdominal GI/Abdominal exam: Present: normal bowel sounds, soft, no peritoneal signs. Absent: distended, tenderness - Extremities Exam Extremities exam: Present: warm, radial pulses palpable and symmetrical. Absent : calf tenderness, cyanotic, pedal edema - Neurological Exam Neurological exam: Present: CN II-XII intact, oriented X3, no focal deficits. Absent: pronater drift, facial droop, speech deficit - Skin Skin exam: Present: dry, intact Internal Medicine: Result - Labs CBC & Chem 7: 01/03/18 04:38 01/03/18 04:38 Labs: Short CBC 01/03/18 Range/Units 04:38 WBC 4.8 (4.3-11.1) K/mcL Hgb 11.4 L (12.9-16.9) g/dL Hct 36.0 L (37.5-50.1) % Plt Count 82 L (140-400) K/mcL Neutrophils # 3.6 (1.6-8.9) K/mcL BMP 01/03/18 04:38 Sodium 140 Potassium 4.1 Chloride 109 H Carbon Dioxide 22 L BUN 21 Creatinine 1.06 Glucose 124 H Calcium 8.6 Liver Function 01/03/18 Range/Units 04:38 Total Bilirubin 0.9 (0.3-1.0) mg/dL Direct Bilirubin 0.2 (0.0-0.2) mg/dL AST 20 (13-39) Units/L ALT 5 L (7-52) Units/L Alkaline Phosphatase 111 H (34-104) Units/L Albumin 3.2 L (3.5-5.7) g/dL - ABG Interpretation ABG results: PT/INR, D-dimer PT 11.9 Seconds (9.4-12.1) 01/01/18 02:49 - Impressions Impressions Cath/Invasive Procedure 01/02/18 14:22 IMPRESSION: Unremarkable ERCP images. Please refer to the procedure report for further details. D/ / Rick Amaya MD / Rick Amaya MD Interpreting Provider: Rick Amaya MD Consult Discharge Plan - Plan Referrals: Soto Naqvi MD [Primary Care Provider] -
[2018-01-04] MEDS: Insulin LISPRO 300 UNITS/3 ML VIAL SQ SCH ×3 (06:09→18:01)
[2018-01-04] MEDS: *HR* Enoxaparin 40 MG/0.4 ML SYRINGE SQ SCH (06:13)
[2018-01-04] MEDS: Pantoprazole 40 MG VIAL IVP SCH (06:13)
[2018-01-04] MEDS: Acetaminophen 325 MG TABLET PO PRN ×3 (06:21→19:55)
[2018-01-04] MEDS: Aspirin Enteric Coated 325 MG Tablet PO SCH (08:12)
[2018-01-04] MEDS: Carbidopa/Levodopa 25/250 TABLET PO SCH ×3 (08:12→19:59)
[2018-01-04] MEDS: Furosemide 20 MG TABLET PO SCH ×2 (08:12→19:59)
--- NOTE | 2018-01-04 15:04 | Internal Med Progress Note ---
Date of Encounter: 01/04/18 Time of Encounter: 15:02 - Assessment and plan (1) Choledocholithiasis Current Visit: Yes Status: Acute Assessment and plan: s/p cholecystectomy. Presnted to OSH with ABD pain; OSH ABD CT WITH 1.2 cm s/p cholecystectomy with upstream intrahepatic and extrahepatic biliary dilation. LFT WNL. Status post ERCP with complete removal of stones with biliary sphincterotomy, successful dilation of CBD and sweeping of biliary tree. Stent placed to CBD and ventral pancreatic duct. Will need EGD in 4-6 weeks for stent removal. (2) Urinary retention Current Visit: Yes Status: Acute Assessment and plan: Suspect post procedure urinary retention. Bladder scan shows greater than 1100 mL's and urine. Straight catheter now. Plan to bladder scan every 6 hours PRN no void and or bladder scan for PVR if he is able to void. Place Cooper catheter if greater than 250 ML's. Cont flomax (3) CAD (coronary artery disease) Current Visit: Yes Status: Chronic Assessment and plan: Per hx. S/p remote CABG. Aymptomatic. Denied chest pain. Cont home ASA, statin Qualifiers: Coronary Disease-Associated Artery/Lesion type: [place] artery [place] vs. transplanted heart: [place] heart Associated angina: angina presence unspecified Qualified Code(s): I25.10 - Atherosclerotic heart disease of [place] coronary artery without angina pectoris (4) Abdominal aortic aneurysm (AAA) 3.0 cm to 5.5 cm in diameter in male Current Visit: Yes Status: Chronic Assessment and plan: Per hx. W/o rupture/Stable. CT A/P @ [facility] noted mildly in aneurysmal infrarenal abdominal aorta measuring 3.1 x 3 cm. Otherwise major vessels are patent including portal veins and splenic vein. Monitor. F/U w/vascular surgery OP. (5) Small cell lung cancer Current Visit: Yes Status: Chronic Assessment and plan: Per hx. Chem/rad txs completed 09/08. Pt. f/u as OP. Qualifiers: Laterality: unspecified laterality Qualified Code(s): C34.90 - Malignant neoplasm of unspecified part of unspecified bronchus or lung (6) Parkinson disease Current Visit: Yes Status: Chronic Assessment and plan: Per hx. Continue carbidopa/levodopa. (7) DVT prophylaxis Current Visit: Yes Status: Acute Assessment and plan: Lovenox - Subjective Interval history: Seen and examined at bedside; says he feels a little better. Still complaining of abdominal pain. No loose stool, nausea or vomiting. Tolerating regular diet. Bladder scan shows over 1000 mL urine. - Constitutional Vitals: Temp Pulse Resp BP Pulse Ox 98.1 F 97 20 106/70 91 01/04/18 12:02 01/04/18 12:02 01/04/18 12:02 01/04/18 12:02 01/04/18 12:02 General appearance: Present: cooperative, A&O X 3, answers questions appropriately - Head Head exam: Present: atraumatic, normocephalic - Eye Eye exam: Present: PERRL, conjuntiva pink, sclera anicteric Pupils: Present: PERRL Additional comments: blind - Neck Neck exam general surgery: Present: supple, trachea midline. Absent: lymphadenopathy - Respiratory Respiratory exam: Present: CTAB. Absent: accessory muscle use, rales, rhonchi, wheezes - Cardiovascular Cardiovascular exam: Present: RRR, +S1, +S2. Absent: diastolic murmur, gallop, rubs, systolic murmur - GI/Abdominal GI/Abdominal exam: Present: normal bowel sounds, soft, no peritoneal signs. Absent: distended, tenderness - Extremities Exam Extremities exam: Present: warm, radial pulses palpable and symmetrical. Absent : calf tenderness, cyanotic, pedal edema - Neurological Exam Neurological exam: Present: CN II-XII intact, oriented X3, no focal deficits. Absent: pronater drift, facial droop, speech deficit - Skin Skin exam: Present: dry, intact Internal Medicine: Result - Labs CBC & Chem 7: 01/03/18 04:38 01/03/18 04:38 - ABG Interpretation ABG results: PT/INR, D-dimer PT 11.9 Seconds (9.4-12.1) 01/01/18 02:49 Consult Discharge Plan - Plan Referrals: Soto Naqvi MD [Primary Care Provider] -
[2018-01-05] MEDS: Insulin LISPRO 300 UNITS/3 ML VIAL SQ SCH ×3 (00:05→12:42)
[2018-01-05] MEDS: *HR* Enoxaparin 40 MG/0.4 ML SYRINGE SQ SCH (04:41)
[2018-01-05] MEDS: Aspirin Enteric Coated 325 MG Tablet PO SCH (08:03)
[2018-01-05] MEDS: Furosemide 20 MG TABLET PO SCH (08:03)
[2018-01-05] MEDS: Carbidopa/Levodopa 25/250 TABLET PO SCH ×2 (08:03→14:31)
[2018-01-05] MEDS: Acetaminophen 325 MG TABLET PO PRN (08:03)
--- NOTE | 2018-01-05 13:32 | Discharge Summary ---
Date of Encounter: 01/05/18 Time of Encounter: 09:10 - Discharge Diagnosis (1) Abdominal cramping Priority: Secondary Status: Acute Comments: Pt reports low abd cramping since surgery 3 days ago. Abd is soft and non- tender to palpation. Pt has shaffer due to urinary retention, could be source of cramping, UA ordered and pending. Patient with prior medical history of BPH. Pt is having normal bowel movements. Tylenol for discomfort. Continue to monitor. . (2) Choledocholithiasis Priority: Primary Status: Acute Comments: s/p cholecystectomy. Presnted to OSH with ABD pain; OSH ABD CT WITH 1.2 cm s/p cholecystectomy with upstream intrahepatic and extrahepatic biliary dilation. LFT WNL. Status post ERCP with complete removal of stones with biliary sphincterotomy, successful dilation of CBD and sweeping of biliary tree. Stent placed to CBD and ventral pancreatic duct. Will need EGD in 4-6 weeks for stent removal. (3) Urinary retention Priority: Secondary Status: Acute Comments: Suspect post procedure urinary retention. Pt has shaffer cath at this time and will be discharged with it. Pt follows with Dr. Avila already and will need to follow for voiding trial. Possible source of low abdominal cramping. Repeat urine prior to discharge not indicative of infection. (4) Abdominal aortic aneurysm (AAA) 3.0 cm to 5.5 cm in diameter in male Priority: Secondary Status: Chronic Comments: Chronic. Stable. Infrarenal abdominal aorta mildly aneurysmal, measuring 3.1x 3cm. Follow with vascular surgery after discharge. (5) Anemia Priority: Secondary Status: Chronic Comments: hgb 11.4. Appears to be at pt's baseline. Most likely anemia of chronic disease , pt with CKD Stage III. Continue to monitor. Qualifiers: Anemia type: unspecified type Qualified Code(s): D64.9 - Anemia, unspecified (6) CAD (coronary artery disease) Priority: Secondary Status: Chronic Comments: Pt denies chest pain. Continue aspirin, statin. Qualifiers: Coronary Disease-Associated Artery/Lesion type: [place] artery [place] vs. transplanted heart: [place] heart Associated angina: angina presence unspecified Qualified Code(s): I25.10 - Atherosclerotic heart disease of [place] coronary artery without angina pectoris (7) COPD (chronic obstructive pulmonary disease) Priority: Secondary Status: Chronic Comments: No acute exacerbation. Patient is at baseline and to use 2 L by nasal cannula. Continue duo nebs and Mucinex on discharge. Qualifiers: COPD type: chronic bronchitis Chronic bronchitis type: simple Qualified Code(s): J41.0 - Simple chronic bronchitis (8) Diabetes Priority: Secondary Status: Chronic Comments: Chronic. Continue home medications and Accu-Cheks. Qualifiers: Diabetes mellitus type: type 2 Diabetes mellitus complication status: without complication Qualified Code(s): E11.9 - Type 2 diabetes mellitus without complications (9) HLD (hyperlipidemia) Priority: Secondary Status: Chronic Comments: Chronic. Continue statin. Qualifiers: Hyperlipidemia type: pure hypercholesterolemia Qualified Code(s): E78.00 - Pure hypercholesterolemia, unspecified; E78.0 - Pure hypercholesterolemia (10) HTN (hypertension) Priority: Secondary Status: Chronic Comments: Chronic. Well controlled. Continue home medications. Qualifiers: Hypertension type: essential hypertension Qualified Code(s): I10 - Essential (primary) hypertension (11) Parkinson disease Priority: Secondary Status: Chronic Comments: Chronic. Continue Carbidopa/Levodopa. Monitor for safety. (12) Small cell lung cancer Priority: Secondary Status: Chronic Comments: Follow up outpatient as scheduled. Qualifiers: Laterality: unspecified laterality Qualified Code(s): C34.90 - Malignant neoplasm of unspecified part of unspecified bronchus or lung (13) CKD (chronic kidney disease) stage 3, GFR 30-59 ml/min Priority: Secondary Status: Acute Comments: When last labs were drawn on 01/03, renal function was within normal limits. Continue to avoid NSAIDs and nephrotoxins. (14) DVT prophylaxis Priority: Secondary Status: Acute Comments: Lovenox SQ - Discharge Medications Prescriptions: Tramadol HCl [Ultram] 50 mg PO BID PRN 1 Days #2 tab PRN Reason: Severe Pain Home Medications: Carbidopa/Levodopa [Carbidopa-Levodopa 25-250 Tab] 1 tab PO TID 03/14/17 [ History] Pravastatin Sodium [Pravachol] 40 mg PO DAILY 03/14/17 [History] Tamsulosin [Flomax] 0.4 mg PO DAILY 03/14/17 [History] Vit A/Vit C/Vit E/Zinc/Copper [Preservision Areds Tablet] 2 tab PO DAILY [History] metFORMIN [Glucophage] 500 mg PO DAILY 03/14/17 [History] Aspirin Enteric Coated [Aspirin EC] 325 mg PO DAILY tablet. 03/15/17 [Rx] Magic Mouthwash [Magic Mouthwash BLM] 10 ml PO QID PRN #240 ml 05/04/17 [Rx] Linagliptin [Tradjenta] 5 mg PO DAILY 06/12/17 [History] Benzonatate [Tessalon] 100 mg PO TID PRN #60 capsule 11/03/17 [Rx] Guaifenesin [Mucinex] 600 mg PO BID #30 tab.er.12h 11/03/17 [Rx] Furosemide [Lasix] 20 mg PO BID #60 tablet 12/02/17 [Rx] Omeprazole [PriLOSEC] 40 mg PO BIDAC #30 capsule. 12/02/17 [Rx] Potassium Chloride [K-Tab ER] 10 meq PO DAILY #30 tablet.er 12/02/17 [Rx] Erythromycin [Ector-Tab] 250 mg PO BID 12/29/17 [History] Ipratropium/Albuterol Neb [Duoneb] 3 ml IH Q4HR PRN 12/29/17 [History] Magnesium Hydroxide [Milk of Magnesia] 30 ml PO DAILY PRN 12/29/17 [History] Lactose-Reduced Food [Ensure Plus] 1 bottle PO TID 01/01/18 [History] Potassium Chloride [K-Tab ER] 10 meq PO DAILY 01/01/18 [History] Acetaminophen [Tylenol] 650 mg PO Q6HR PRN tablet 01/05/18 [Rx] Docusate [Colace] 100 mg PO BID capsule 01/05/18 [Rx] Tramadol HCl [Ultram] 50 mg PO BID PRN 1 Days #2 tab 01/05/18 [Rx] Allergies/Adverse Reactions: 3 Allergy/AdvReac Type Severity Reaction Status Date / Time atorvastatin [From Lipitor] AdvReac Muscle Pain Verified 12/29/17 15:28 prochlorperazine AdvReac Hypertensio Verified 12/29/17 15:28 n Date of admission: 01/01/18 03:56 Primary care physician: Soto Naqvi MD Consults: 01/01/18 01:35 Consult to Gastroenterology [CONS] Routine Consulting Provider: Gastroenterology Arlin Reason for Consult: CBD stone Call Completed: No 01/03/18 12:39 Consult to Physical Therapy [CONS] Routine Comment: Evaluate, develop and implement POC Reason for Consult: From ECF for rehab. possible return to ECF. 01/03/18 12:40 Consult to Occupational Therapy [CONS] Routine Comment: Evaluate, develop and implement POC Reason for Consult: ambulate and assess 01/04/18 07:53 Consult to Therapeutic Consultant [CONS] Routine Reason for SW Consult: from ECF Discharging clinician: Kelley Bergman Anticipated date of discharge: 01/05/18 - Patient Status Disposition: Transfer SNF Functional capacity at discharge: wheelchair bound Overall status at discharge: patient is progressing back to baseline - Discharge Instructions Follow Up With: Soto Naqvi MD [Primary Care Provider] - - Diet and Activity Activity: as per physical therapy Diet: advance to your usual diet Hospital course: Mr. tOto is a 72 year old male with past medical history of Parkinson's, lung cancer, diabetes, CHF, CK D St. stage III, anemia, cirrhosis, gastroparesis and esophagitis. He presented to the emergency room from our [facility] with abdominal pain and need for ERCP. Patient had ERCP with complete removal of stones, biliary sphincterotomy, successful dilation of CBD and sweeping of biliary tree. A stent was placed in the CBD and ventral pancreatic duct. He will need an EGD in 4-6 weeks for stent removal. Patient also has had urinary retention since procedure, suspect post procedure urinary retention. He is now has a Shaffer catheter. He will go back to the halfway with the catheter and return to follow with urology for voiding trial. Patient denies chest pain, nausea, vomiting, diarrhea, no headache or blurred vision, no dizziness. Patient does report low abdominal cramping, most likely due to Shaffer catheter in place. Abdomen is soft and nontender with bowel sounds present in all 4 quadrants. Urine prior to discharge negative, no culture indicated. Patient is able to eat and drink a regular diet. His labs are stable, he is afebrile no signs of sepsis or Sirs. Vital signs are stable within normal limits. Patient is stable and appropriate for discharge back to halfway. - Time Spent with Patient Total time spent providing and/or coordinating discharge services: Less than 30 minutes - Constitutional Vitals: Temp Pulse Resp BP Pulse Ox 97.4 F L 99 16 109/71 92 01/05/18 11:08 01/05/18 11:08 01/05/18 11:08 01/05/18 11:08 01/05/18 11:08 General appearance: Present: cooperative, A&O X 3, pleasant, answers questions appropriately - Head Head exam: Present: atraumatic, normal inspection, normocephalic - Eye Eye exam: Present: normal appearance, conjuntiva pink, sclera anicteric - Neck Neck exam general surgery: Present: supple, trachea midline. Absent: lymphadenopathy - Respiratory Respiratory exam: Present: CTAB. Absent: accessory muscle use, rales, rhonchi, wheezes - Cardiovascular Cardiovascular exam: Present: RRR, +S1, +S2. Absent: diastolic murmur, gallop, rubs, systolic murmur - GI/Abdominal GI/Abdominal exam: Present: normal bowel sounds, soft. Absent: distended, guarding, hepatomegaly, hyperactive bowel sounds, rigid, tenderness - Extremities Exam Extremities exam: Present: normal capillary refill, warm, radial pulses palpable and symmetrical. Absent: calf tenderness, cyanotic, pedal edema, tenderness - Neurological Exam Neurological exam: Present: alert, oriented X3, no focal deficits. Absent: facial droop, speech deficit - Skin Skin exam: Present: dry, intact, normal color, warm. Absent: rash
[2018-01-05] MEDS ORDERED: traMADol 50 MG TABLET PO PRN ×2 (14:02→14:15)
[2018-01-05] MEDS ORDERED: traMADol 50 MG TABLET PO ONE (14:03)
[2018-01-05 15:17] LABS: Bilirubin,Urine Negative (Negative); Blood,Urine Negative (Negative); Clarity,Urine Clear (Clear); Color,Urine Yellow (Yellow); Glucose,Urine (UA) Normal (Normal); Ketones,Urine Trace mg/dL (Negative); Leukocyte Esterase,Urine Negative (Negative); Nitrite,Urine Negative (Negative); PH,Urine 6.5 pH Units (5.0-8.0); Protein,Urine Trace mg/dL (Neg-Trace); Specific Gravity,Urine 1.023 (1.010-1.025); Urobilinogen,Urine Normal (Normal)
[2018-01-05 15:19] LABS: Bacteria,Urine None Seen per hpf (None-Few); Hyaline Casts,Urine None Seen per lpf (None-Few); RBC,Urine 0-3 per hpf (0-3); WBC,Urine 0-3 per hpf (0-3)
[2018-01-05 15:29] VITALS: BP 104/65
[2018-01-05 15:29] LABS: Squamous Epithelial Cell,Urine Few per lpf (None-Few)
--- NOTE | 2018-01-05 17:51 | Physician Discharge Referral ---
ExtendedCare Referral Info Transfer To: [facility] Provider in Charge after Transfer: PCP Institutional Level of Care: Intermediate - Diagnosis (1) Abdominal cramping Priority: Secondary Status: Acute (2) Choledocholithiasis Priority: Primary Status: Acute (3) Urinary retention Priority: Secondary Status: Acute (4) Abdominal aortic aneurysm (AAA) 3.0 cm to 5.5 cm in diameter in male Priority: Secondary Status: Chronic (5) Anemia Priority: Secondary Status: Chronic (6) CAD (coronary artery disease) Priority: Secondary Status: Chronic (7) COPD (chronic obstructive pulmonary disease) Priority: Secondary Status: Chronic (8) Diabetes Priority: Secondary Status: Chronic (9) HLD (hyperlipidemia) Priority: Secondary Status: Chronic (10) HTN (hypertension) Priority: Secondary Status: Chronic (11) Parkinson disease Priority: Secondary Status: Chronic (12) Small cell lung cancer Priority: Secondary Status: Chronic (13) CKD (chronic kidney disease) stage 3, GFR 30-59 ml/min Priority: Secondary Status: Acute (14) DVT prophylaxis Priority: Secondary Status: Acute Prognosis: Fair Aware of Diagnosis: Patient, Family - Transfer Medications Prescriptions: Tramadol HCl [Ultram] 50 mg PO BID PRN 1 Days #2 tab PRN Reason: Severe Pain Home Medications: Carbidopa/Levodopa [Carbidopa-Levodopa 25-250 Tab] 1 tab PO TID 03/14/17 [ History] Pravastatin Sodium [Pravachol] 40 mg PO DAILY 03/14/17 [History] Tamsulosin [Flomax] 0.4 mg PO DAILY 03/14/17 [History] Vit A/Vit C/Vit E/Zinc/Copper [Preservision Areds Tablet] 2 tab PO DAILY [History] metFORMIN [Glucophage] 500 mg PO DAILY 03/14/17 [History] Aspirin Enteric Coated [Aspirin EC] 325 mg PO DAILY tablet. 03/15/17 [Rx] Magic Mouthwash [Magic Mouthwash BLM] 10 ml PO QID PRN #240 ml 05/04/17 [Rx] Linagliptin [Tradjenta] 5 mg PO DAILY 06/12/17 [History] Benzonatate [Tessalon] 100 mg PO TID PRN #60 capsule 11/03/17 [Rx] Guaifenesin [Mucinex] 600 mg PO BID #30 tab.er.12h 11/03/17 [Rx] Furosemide [Lasix] 20 mg PO BID #60 tablet 12/02/17 [Rx] Omeprazole [PriLOSEC] 40 mg PO BIDAC #30 capsule.dr 12/02/17 [Rx] Potassium Chloride [K-Tab ER] 10 meq PO DAILY #30 tablet.er 12/02/17 [Rx] Erythromycin [Ector-Tab] 250 mg PO BID 12/29/17 [History] Ipratropium/Albuterol Neb [Duoneb] 3 ml IH Q4HR PRN 12/29/17 [History] Magnesium Hydroxide [Milk of Magnesia] 30 ml PO DAILY PRN 12/29/17 [History] Lactose-Reduced Food [Ensure Plus] 1 bottle PO TID 01/01/18 [History] Potassium Chloride [K-Tab ER] 10 meq PO DAILY 01/01/18 [History] Acetaminophen [Tylenol] 650 mg PO Q6HR PRN tablet 01/05/18 [Rx] Docusate [Colace] 100 mg PO BID capsule 01/05/18 [Rx] Tramadol HCl [Ultram] 50 mg PO BID PRN 1 Days #2 tab 01/05/18 [Rx] Allergies/Adverse Reactions: 3 Allergy/AdvReac Type Severity Reaction Status Date / Time atorvastatin [From Lipitor] AdvReac Muscle Pain Verified 12/29/17 15:28 prochlorperazine AdvReac Hypertensio Verified 12/29/17 15:28 n - Respiratory Orders Smoking Cessation: Smoking cessation has been advised. For more information, call the [place] Tobacco Quit Line at 0-557-BQQN-NOW. - Lab Orders Lab Orders: 2 Step Mantoux Test per State regulation, U/A, [place] 17, CXR yearly - Ancillary Orders May use pressure relief devices daily prn, May go on REBA w/family/respon libertarian w /meds at nurse discretion PRN, May consult with Dentist, Clay Processing Labourer, Lead Worker Of Housekeeping And Laundry PRN - Advance Directives Code Status: Full Code - Mobility Orders Chair, Ambulate, Bedrest - Rehabiliation Orders Rehab Potential: Fair Rehab Orders: ROM Exercises, Evaluation for Physical Therapy, Evaluation for Occupational Therapy - Treatments Skin tear care topically daily PRN per policy, May check for fecal impaction rectally daily PRN, Fleet enema rectally every other day PRN cleansing purposes - Diet Orders Regular CERTIFICATION: I certify that the transfer of the above named patient to an Extended Care Facility is necessary for the continuing treatment of the diagnosis listed. The above information is true and accurate reflection of patient's current condition. Confidential - Redisclosure prohibited without a patient's written consent.
== END 2018-01-05 19:03 | DRG 445 ==
LOC: 3BNU
PROVIDERS: ADMIT Internal Medicine Hematology & Oncology; ATTEND Internal Medicine Hematology & Oncology